=== PATIENT | male | born 1955 | race African-American/Black ===

== ENCOUNTER 2016-10-15 15:41 | Emergency (ER) | payer MEDICAID ==
[~2016-10-15] VITALS: Ht 172.7 cm; Wt 81.6 kg
[~2016-10-15 15:41] MED LIST: ANTIVERT25 MG ORAL; BENADRYL25 M2 PO; CEPHALEXIN500 MG ORAL; CILOXAN3.5 GM OP; CIPROFLOXACIN500 M2 ORAL; COMBIVIR1 EA ORAL; FLOMAX0.4 MG ORAL; HYDROCORTISO453.6 GM TP; LEVEMIR FL100 UNIT/1 SUBQ; METFORMIN HCL1000 M1 ORAL; METFORMIN HCL500 M1 ORAL; NKM; NORCO 5-325 TA1 EAC1 ORAL; NOVOLOG100 UNIT/3 SUBQ; TESSALON PERLE100 M2 ORAL; VIRACEPT250 MG ORAL; ZITHROMAX250 MG ORAL; [UNRECOGNIZED DRUG - OTHER] PO
[2016-10-15 15:53] VITALS: BP 133/84
[2016-10-15] MEDS ORDERED: ROBITUSSIN COU118 M4 PO (17:12)
[2016-10-15] MEDS ORDERED: AMOXICILLIN500 MG ORAL (17:12)
[2016-10-15 17:23] VITALS: BP 129/78
--- NOTE | 2016-10-15 21:29 | Emergency Room Report ---
History of Present Illness General Chief Complaint: Sore Throat Source: Patient Present Illness HPI The patient is a 61-year-old male presenting for 2 weeks of subjective fever, sore throat, and productive cough. The patient denies any sick contacts or recent travel. The patient states that the symptoms have not improved. The patient denies nausea, vomiting, headache, myalgias, dizziness, chest pain, shortness of breath, hemoptysis Allergies: Coded Allergies: No Known Allergies (Unverified , 02/15/13) Patient History Past Medical History: see triage record Pertinent Family History: none Reviewed Nursing Documentation: PMH: Agreed, PSxH: Agreed Nursing Documentation-PMH Past Medical History: No History, Except For Hx Diabetes: Yes Hx Cancer: No Hx Gastrointestinal Problems: Yes - Hepaitis C Hx Neurological Problems: Yes Hx Weakness: Yes Hx Fatigue: Yes Review of Systems All Other Systems: negative except mentioned in HPI Physical Exam Vital Signs Date Time Temp Pulse Resp B/P Pulse Ox O2 Delivery O2 Flow Rate FiO2 10/15/16 15:51 99.9 110 14 133/84 99 Room Air Sp02 EP Interpretation: reviewed, normal General Appearance: no apparent distress, alert, GCS 15, non-toxic Head: normocephalic, atraumatic Eyes: bilateral eye PERRL, bilateral eye normal inspection ENT: hearing grossly normal, no angioedema, normal voice, uvula midline, tonsillar swelling, pharyngeal erythema Neck: full range of motion, supple/symm/no masses Respiratory: chest non-tender, lungs clear, normal breath sounds, no wheezing, speaking full sentences Cardiovascular #1: regular rate, rhythm, no edema Musculoskeletal: back normal, gait/station normal, normal range of motion, non- tender, calf tenderness Neurologic: alert, oriented x3, responsive, motor strength/tone normal, sensory intact, speech normal Psychiatric: judgement/insight normal, memory normal, mood/affect normal, no suicidal/homicidal ideation Skin: normal color, no rash, warm/dry, well hydrated Lymphatic: no adenopathy Medical Decision Making PA Attestation Dr. Reaves is my supervising physician. Patient management was discussed with my supervising physician Diagnostic Impression: Primary Impression: Pharyngitis, acute ER Course The patient is a 61-year-old male presenting for 2 weeks of subjective fever, sore throat, and productive cough. Differential diagnosis include but not limited to pharyngitis, bronchitis, sinusitis, pneumonia, rhinitis Physical exam: Afebrile. No apparent distress HEENT: There is bilateral tonsillar edema and oropharyngeal erythema. Uvula midline. Otherwise exam unremarkable Lungs clear to auscultation bilaterally. The patient will be discharged home with a prescription for cough medication and amoxicillin. ER precautions given Last Vital Signs Date Time Temp Pulse Resp B/P Pulse Ox O2 Delivery O2 Flow Rate FiO2 10/15/16 17:23 99.9 98 15 129/78 99 Room Air Status: improved Disposition: HOME, SELF-CARE Condition: Improved Scripts Guaifenesin/Dextromethorphan (Robitussin Cough-Chest Dm Liq) 118 Ml Liquid 10 ML PO Q4HR, #118 ML Prov: DANNI DRAKE.Alberto. 10/15/16 Amoxicillin* (AMOXIL*) 500 Mg Capsule 500 MG ORAL Q12HR, #20 CAP Prov: DANNI DRAKE.A. 10/15/16 Patient Instructions: Pharyngitis, Sore Throat Additional Instructions: I discussed my findings with the patient. All questions and concerns have been answered. Treatment and medication compliance have been addressed. I advised the patient that they need to follow up with PMD in 3-5 days. Return to ED if pain remains or worsens, cough worsens or remains, you notice blood in your sputum, you notice wheezing, you experience a fever, or if needed for any reason. Patient verbalized understanding of discharge instructions. DANNI DRAKE Oct 15, 2016 21:29
== END 2016-10-15 17:24 | disposition home or self-care (01) ==
LOC: EMR 16:23
DX: J02.9 Acute pharyngitis, unspecified (principal); E11.9 Type 2 diabetes mellitus without complications; B19.20 Unspecified viral hepatitis C without hepatic coma
CPT/HCPCS: 99284

== ENCOUNTER 2016-10-18 06:30 | Emergency (ER) | payer MEDICAID ==
[~2016-10-18] VITALS: Ht 172.7 cm; Wt 81.6 kg
[~2016-10-18 06:30] MED LIST changes: +AMOXICILLIN500 MG ORAL; +ROBITUSSIN COU118 M4 PO
[2016-10-18 06:43] VITALS: BP 160/102
[2016-10-18 07:01] LABS: APPEARANCE,URINE CLEAR; KETONES,URINE 1+ (NEGATIVE); LEUKOCYTE ESTERASE ,URINE 1+ (NEGATIVE); NITRITE,URINE NEGATIVE (NEGATIVE); PH,URINE 5 (4.5-8.0); PROTEIN,URINE 2+ (NEGATIVE); UROBILINOGEN,URINE NORMAL MG/DL (0.0-1.0)
--- NOTE | 2016-10-18 07:13 | Emergency Room Report ---
History of Present Illness General Chief Complaint: Abdominal Pain Source: Patient Present Illness HPI 61 YO M with known BPH presents with generalized abd "discomfort" non-focal assoc with nausea - he induced vomiting with improvement - and "some watery diarrhea." No longer nauseated. Denies fever/chills, urinary complaints, previous abd surgery. Denies sick contacts, foreign travel. Patient undomiciled. Allergies: Coded Allergies: No Known Allergies (Unverified , 02/15/13) Patient History Past Medical History: other - HepC, BPH Past Surgical History: none Pertinent Family History: none Social History: Denies: alcohol use, drug use, smoking Immunizations: UTD Reviewed Nursing Documentation: PMH: Agreed, PSxH: Agreed Nursing Documentation-PMH Hx Diabetes: Yes Hx Cancer: No Hx Gastrointestinal Problems: Yes - Hepaitis C Hx Neurological Problems: Yes Hx Weakness: Yes Hx Fatigue: Yes Review of Systems All Other Systems: negative except mentioned in HPI Physical Exam Vital Signs Date Time Temp Pulse Resp B/P Pulse Ox O2 Delivery O2 Flow Rate FiO2 10/18/16 06:33 98.2 80 18 160/102 98 Room Air Sp02 EP Interpretation: reviewed, normal General Appearance: normal inspection, well appearing, no apparent distress, alert Head: atraumatic ENT: normal ENT inspection, hearing grossly normal, normal voice Neck: normal inspection, full range of motion, supple, no bony tend Respiratory: normal inspection, lungs clear, normal breath sounds, no respiratory distress, no retraction, no wheezing Cardiovascular #1: regular rate, rhythm, no edema Gastrointestinal: normal inspection, normal bowel sounds, non tender, soft, no guarding, no hernia Genitourinary: no CVA tenderness Musculoskeletal: normal inspection, back normal, normal range of motion, Abdulkadir' s Sign negative Neurologic: normal inspection, alert, oriented x3, responsive, fisher trammel net III-XII nml as tested, motor strength/tone normal, cerebellar normal, normal gait, speech normal Psychiatric: normal inspection, judgement/insight normal, mood/affect normal Skin: normal inspection, normal color, no rash Medical Decision Making Diagnostic Impression: Primary Impression: Abdominal pain Qualified Codes: R10.84 - Generalized abdominal pain ER Course 61 YO M with generalized abd discomfort. Non-focal abdomen on serial exam. VSS. Afebrile. UA: negative for infection Improved with PO H2 alex, reglan No additional vomiting here Low suspicion for acute bacterial or surgical process requiring additional lab testing or imaging given normal vital signs, absence of fever, non-focal abdomen on serial exam. Patient understands to follow up with PMD or return to ER for worsening/other concerning symptoms Rx Pepcid Also there is an element of malingering for correction during this rain storm - review of EMR indicates other visits for similar reasons to this ED Last Vital Signs Date Time Temp Pulse Resp B/P Pulse Ox O2 Delivery O2 Flow Rate FiO2 10/18/16 06:43 98.2 88 18 160/102 98 Room Air Status: improved Disposition: HOME, SELF-CARE Referrals: NON PHYSICIAN (PCP) MARK AU M.D. Oct 18, 2016 07:12
[2016-10-18 07:21] LABS: BACTERIA,URINE FEW /HPF; HYALINE CASTS, URINE 0-2 /LPF; MUCUS,URINE FEW /LPF (NONE/OCC); RBC,URINE 0-2 /HPF (0 - 0); SQUAMOUS EPITHELIAL CELL,UR FEW /LPF (NONE/OCC)
[2016-10-18] MEDS ORDERED: PEPCID40 MG PO (07:26)
[2016-10-18 08:00] VITALS: BP 155/80
[2016-10-18 08:35] VITALS: BP 155/87
== END 2016-10-18 08:35 | disposition home or self-care (01) ==
LOC: EMR 07:03
DX: R10.84 Generalized abdominal pain (principal); N40.0 Benign prostatic hyperplasia without lower urinary tract symptoms; B19.20 Unspecified viral hepatitis C without hepatic coma; E11.9 Type 2 diabetes mellitus without complications
CPT/HCPCS: 81003; 96372; 99283; J2405

== ENCOUNTER 2016-10-20 22:19 | Inpatient (IN) | payer MEDICAID ==
[~2016-10-20] VITALS: Ht 172.7 cm; Wt 81.6 kg
[~2016-10-20 22:19] MED LIST changes: +PEPCID40 MG PO
[2016-10-20] MEDS ORDERED: Morphine Sulfate 2mg/ml Inj IVP ONE (23:00)
[2016-10-20 23:31] LABS: MEAN CORPUSCULAR HEMOGLOBIN 38.9 PG (27.0-31.0); MEAN CORPUSCULAR HGB CONC 34.2 G/DL (32.0-36.0); MEAN CORPUSCULAR VOLUME 114 FL (80-99); MEAN PLATELET VOLUME 8.8 FL (6.5-10.1); PLATELET COUNT 176 K/UL (150-450); RED BLOOD COUNT 5.44 M/UL (4.70-6.10); RED CELL DISTRIBUTION WIDTH 12.2 % (11.6-14.8)
[2016-10-20 23:43] LABS: INR 1.1 (0.9-1.1); PROTHROMBIN TIME 10.9 SEC (9.30-11.50)
[2016-10-20 23:45] VITALS: BP 135/90
[2016-10-20 23:52] LABS: TROPONIN I < 0.30 ng/mL (<=0.30)
[2016-10-20 23:55] LABS: ALANINE AMINOTRANSFERASE 28 U/L (3-41); ALBUMIN/GLOBULIN RATIO 0.9 (1.0-2.7); ANION GAP 24 (5-15); ASPARTATE AMINO TRANSFERASE 29 U/L (5-40); CALCIUM 10.2 mg/dL (8.6-10.2); CARBON DIOXIDE 24 mEQ/L (20-30); CHLORIDE 91 mEQ/L (98-107); CREATININE 1.5 mg/dL (0.7-1.2); GLOMERULAR FILTRATION RATE 58.1 mL/min (>60); HEMOLYSIS 7; LIPASE 10 U/L (< 60); POTASSIUM 4.1 mEQ/L (3.4-4.9); SODIUM 139 mEQ/L (135-145); TOTAL PROTEIN 8.5 g/dL (6.6-8.7)
[2016-10-21] VITALS (12 sets, daily range): BP systolic 126–157; BP diastolic 81–102
[2016-10-21] MEDS ORDERED: Azithromycin 500 MG in NS 275 ML IVPB ONE ×2
[2016-10-21] MEDS ORDERED: Cefepime 1gm vial ONE (01:00)
--- NOTE | 2016-10-21 01:02 | Emergency Room Report ---
History of Present Illness General Chief Complaint: Pain Source: Patient Present Illness HPI The patient presents with right-sided flank and right chest pain that Rickey for several days - at least 2 weeks. He was seen here October 18 for similar problem. The pain is gotten more severe. He also complains of a cough previous also been weak. Diabetic. HTN HIV and liver disease. Seen 10/15 with pharyngitis. Prescribed amoxacillin. This is the note from 10/18: 61 YO M with known BPH presents with generalized abd "discomfort" non-focal assoc with nausea - he induced vomiting with improvement - and "some watery diarrhea." No longer nauseated. Denies fever/chills, urinary complaints, previous abd surgery. Denies sick contacts, foreign travel. Primary Impression: Abdominal pain Qualified Codes: R10.84 - Generalized abdominal pain ER Course 61 YO M with generalized abd discomfort. Non-focal abdomen on serial exam. VSS. Afebrile. UA: negative for infection Improved with PO H2 alxe, reglan No additional vomiting here Low suspicion for acute bacterial or surgical process requiring additional lab testing or imaging given normal vital signs, absence of fever, non-focal abdomen on serial exam. Patient understands to follow up with PMD or return to ER for worsening/other concerning symptoms Rx Pepcid Allergies: Coded Allergies: No Known Allergies (Unverified , 02/15/13) Patient History Past Medical History: see triage record, old chart reviewed, DM, HTN, HIV Social History: Denies: alcohol use, drug use, smoking Social History Narrative living in various places Reviewed Nursing Documentation: PMH: Agreed, PSxH: Agreed Nursing Documentation-PMH Past Medical History: No History, Except For Hx Diabetes: Yes Hx Cancer: No Hx Gastrointestinal Problems: Yes - Hepaitis C Hx Neurological Problems: Yes Hx Weakness: Yes Hx Fatigue: Yes Physical Exam Vital Signs Date Time Temp Pulse Resp B/P Pulse Ox O2 Delivery O2 Flow Rate FiO2 10/20/16 22:30 95.2 103 25 132/88 94 Room Air Procedures Critical Care Time Critical Care Time Total time: 30 min bedside evaluation and treatment excludes procedures (EKG). Reason for critical care: acute abdomen, repeated evaluations, need for emergent surgery Possible complications: hypotension, hypertension, CA, shock, arrhythmias, metabolic acidosis, end organ damage, respiratory failure. Interventions: Fluid resuscitation, antibiotics, arrange for emergent surgery, repeat evaluations Course: Patient with acute abdomen. Evidence of pneumonia. Fluid resuscitation and treatment for pain with improvement. Severe dehydration. Continued fluids. CT + perf. Surgeon called and came with evaluation and taking patient to OR. Consultations: nursing staff, radiologist, manufacturing technician, surgeon, admitting MD Performed by: Dr. Geller Tolerated well condition = serious Medical Decision Making Diagnostic Impression: Primary Impression: Bilateral pneumonia Qualified Codes: J18.9 - Pneumonia, unspecified organism Additional Impressions: Perforated appendicitis Polycythemia Volume depletion Renal insufficiency Diabetes mellitus out of control HIV disease ER Course Patient with flank pain, cough, appears acutely ill. DDx: pneumonia, sepsis, renal stone, pyelo, perf. Needs immediate and emergent evaluation with labs, CXR, CT. Will start antibiotics and begin fluid resuscitation. Patient mottled and will need admission but need to determine etiology. CXR with bilateral infiltrates. Antibiotics geared for this. Improved with fluid hydration. Decreased abd pain but still present. Elevated H/H, WBC, lactate. Renal insufficiency. No contrast (discussion with manufacturing technician). Contacted by radiology - pt has perforated appi with free air and peritonitis. Contact surgeon. Patient improved but still with pain. Dr. Singh here. Taking patient to OR. Contact Dr. Gordon for admission. Laboratory Tests Test 10/20/16 23:00 White Blood Count 15.0 K/UL (4.8-10.8) H Red Blood Count 5.44 M/UL (4.70-6.10) Hemoglobin 21.2 G/DL (14.2-18.0) *H Hematocrit 62.0 % (42.0-52.0) H Mean Corpuscular Volume 114 FL (80-99) H Mean Corpuscular Hemoglobin 38.9 PG (27.0-31.0) H Mean Corpuscular Hemoglobin Concent 34.2 G/DL (32.0-36.0) Red Cell Distribution Width 12.2 % (11.6-14.8) Platelet Count 176 K/UL (150-450) Mean Platelet Volume 8.8 FL (6.5-10.1) Neutrophils (%) (Auto) % (45.0-75.0) Lymphocytes (%) (Auto) % (20.0-45.0) Monocytes (%) (Auto) % (1.0-10.0) Eosinophils (%) (Auto) % (0.0-3.0) Basophils (%) (Auto) % (0.0-2.0) Prothrombin Time 10.9 SEC (9.30-11.50) Prothrombin Time INR 1.1 (0.9-1.1) PTT 29 SEC (23-33) Sodium Level 139 mEQ/L (135-145) Potassium Level 4.1 mEQ/L (3.4-4.9) Chloride Level 91 mEQ/L (98-107) L Carbon Dioxide Level 24 mEQ/L (20-30) Anion Gap 24 (5-15) H Blood Urea Nitrogen 24 mg/dL (7-23) H Creatinine 1.5 mg/dL (0.7-1.2) H Estimate Glomerular Filtration Rate 58.1 mL/min (>60) Glucose Level 228 mg/dL (74-106) H Calcium Level 10.2 mg/dL (8.6-10.2) Total Bilirubin 1.0 mg/dL (0.0-1.2) Aspartate Amino Transferase (AST) 29 U/L (5-40) Alanine Aminotransferase (ALT) 28 U/L (3-41) Alkaline Phosphatase 70 U/L (40-129) Total Creatine Kinase 215 U/L (38-174) H Troponin I < 0.30 ng/mL (<=0.30) Total Protein 8.5 g/dL (6.6-8.7) Albumin 4.1 g/dL (3.5-5.2) Globulin 4.4 g/dL Albumin/Globulin Ratio 0.9 (1.0-2.7) L Lipase 10 U/L (< 60) EKG Diagnostic Results Rate: tachycardiac ST Segments: no acute changes Rhythm Strip Diag. Results EP Interpretation: yes Rhythm: no PVC's, no ectopy, other - ST Chest X-Ray Diagnostic Results EP Interpretation: Yes Findings: no pneumothorax, other - bilateral infiltrates, possible small effusion L Number of Views: 1 CT/MRI/US Diagnostic Results CT/MRI/US Diagnostic Results : Imaging Test Ordered: abd pelvis Impression free air, poss perf appendix Last Vital Signs Date Time Temp Pulse Resp B/P Pulse Ox O2 Delivery O2 Flow Rate FiO2 10/20/16 23:45 97.2 87 22 135/90 98 Room Air Status: improved Disposition: ADMITTED INPATIENT Condition: Critical Referrals: NOT CHOSEN IPA/,REFERRING (PCP) Poncho Geller M.D. Oct 21, 2016 01:02
[2016-10-21] MEDS ORDERED: metroNIDAZOLE 500mg 100 ML IVPB ONE (01:15)
[2016-10-21 01:48] LABS: REFLEX LACTIC ACID YES OR NO YES
[2016-10-21] MEDS ORDERED: Azithromycin Inj IV ONE (02:07)
--- NOTE | 2016-10-21 03:05 | Anethesia Preoperative Eval ---
Anesthesia Pre-op PMH/ROS General Date of Evaluation: Oct 21, 2016 Anesthesiologist: Scott ASA Score: ASA 3 Mallampati Score Class I : Soft palate, uvula, fauces, pillars visible Class II: Soft palate, uvula, fauces visible Class III: Soft palate, base of uvula visible Class IV: Only hard plate visible Mallampati Classification: Class III Surgeon: Samantha Diagnosis: Perforated appendicitis Surgical Procedure: Exploratory laparotomy Anesthesia History: none Family History: no anesthesia problems Allergies: Coded Allergies: No Known Allergies (Unverified , 02/15/13) Medications: see eMAR Past Medical History Cardiovascular: Reports: HTN, Denies: CAD, CO, arrhythmia, other, valve dz Pulmonary: Denies: COPD, NEEMA, asthma, other Gastrointestinal/Genitourinary: Reports: GERD, Denies: CRI, ESRD, other Neurologic/Psychiatric: Reports: depression/anxiety, Denies: CVA, TIA, dementia, other Endocrine: Reports: DM, Denies: hypothyroidism, other, steroids HEENT: Denies: [place] (L), [place] (R), cataract (L), cataract (R), glaucoma, other Hematology/Immune: Reports: other - HIV/Hep C, Denies: DVT, anemia, bleeding disorder Musculoskeletal/Integumentary: Reports: OA, Denies: DDD, DJD, RA, edema, other PSxH Narrative: N/A Anesthesia Pre-op Phys. Exam Physician Exam Last Vital Signs Date Time Temp Pulse Resp B/P Pulse Ox O2 Delivery O2 Flow Rate FiO2 10/20/16 23:45 97.2 87 22 135/90 98 Room Air Constitutional: NAD Cardiovascular: other - tachy Respiratory: CTA Airway Exam Mallampati Score: Class III MO: full ROM: full Anesthesia Pre-op A/P Labs Hematology Test 10/20/16 23:00 White Blood Count 15.0 K/UL (4.8-10.8) H Red Blood Count 5.44 M/UL (4.70-6.10) Hemoglobin 21.2 G/DL (14.2-18.0) *H Hematocrit 62.0 % (42.0-52.0) H Mean Corpuscular Volume 114 FL (80-99) H Mean Corpuscular Hemoglobin 38.9 PG (27.0-31.0) H Mean Corpuscular Hemoglobin Concent 34.2 G/DL (32.0-36.0) Red Cell Distribution Width 12.2 % (11.6-14.8) Platelet Count 176 K/UL (150-450) Mean Platelet Volume 8.8 FL (6.5-10.1) Neutrophils (%) (Auto) % (45.0-75.0) Lymphocytes (%) (Auto) % (20.0-45.0) Monocytes (%) (Auto) % (1.0-10.0) Eosinophils (%) (Auto) % (0.0-3.0) Basophils (%) (Auto) % (0.0-2.0) Coagulation Test 10/20/16 23:00 Prothrombin Time 10.9 SEC (9.30-11.50) Prothromb Time International Ratio 1.1 (0.9-1.1) Activated Partial Thromboplast Time 29 SEC (23-33) Chemistry Test 10/20/16 23:00 10/21/16 01:20 10/21/16 02:20 Sodium Level 139 mEQ/L (135-145) Potassium Level 4.1 mEQ/L (3.4-4.9) Chloride Level 91 mEQ/L (98-107) L Carbon Dioxide Level 24 mEQ/L (20-30) Anion Gap 24 (5-15) H Blood Urea Nitrogen 24 mg/dL (7-23) H Creatinine 1.5 mg/dL (0.7-1.2) H Estimat Glomerular Filtration Rate 58.1 mL/min (>60) Glucose Level 228 mg/dL (74-106) H Calcium Level 10.2 mg/dL (8.6-10.2) Total Bilirubin 1.0 mg/dL (0.0-1.2) Aspartate Amino Transf (AST/SGOT) 29 U/L (5-40) Alanine Aminotransferase (ALT/SGPT) 28 U/L (3-41) Alkaline Phosphatase 70 U/L (40-129) Total Creatine Kinase 215 U/L (38-174) H Troponin I < 0.30 ng/mL (<=0.30) Total Protein 8.5 g/dL (6.6-8.7) Albumin 4.1 g/dL (3.5-5.2) Globulin 4.4 g/dL Albumin/Globulin Ratio 0.9 (1.0-2.7) L Lipase 10 U/L (< 60) Lactic Acid Level 3.30 mmol/L (0.66-2.22) H Pending Studies Pre-op Studies: EKG - SR Risk Assessment & Plan Assessment: ASA IIIE Plan: GA-ETT Status Change Before Surgery: No Pre-Antibiotics Drug: On cefepime, azithromycin and flagyl Given Within 1 Hr of Incision: Yes CAESAR MORA M.D. Oct 21, 2016 03:05
--- NOTE | 2016-10-21 03:07 | Pre-op HX & Phy Repo 2 SIG ---
DATE OF ADMISSION: 10/20/2016 DATE OF CONSULTATION: 10/21/2016 REASON FOR CONSULTATION: Abdominal pain. REQUESTING PHYSICIAN: Poncho Geller M.D., in the emergency room. HISTORY OF PRESENT ILLNESS: This is a 61-year-old male, who presented to emergency room complaining of abdominal pain. He claimed that the pain is located on the right side of the abdomen and he claims that he has been fighting this pain for three weeks. He apparently has been seen in the emergency room on 10/18/2016, but he was discharged home with analgesic. Laboratory or x-ray was not performed. He claims that he has induced vomiting twice. His last bowel movement had been probably a week ago. He denies any fever, cough, dysuria, or frequency. He denies any previous history of similar pain. He denies using aspirin, ibuprofen, and cortisol. He denies abdominal pain after eating. PAST MEDICAL HISTORY: He denies allergies, asthma, hypertension, cardiac, and renal diseases. He has a history of diabetes and hepatitis C. PAST SURGICAL HISTORY: Surgeries include incision and drainage of the abscess. MEDICATIONS: Metformin and medicine for hepatitis C. SOCIAL HISTORY: The patient is a 61-year-old male, single without children. Currently, he is on disability and does not work. He denies smoking and drinking. REVIEW OF SYSTEMS: Noncontributory. PHYSICAL EXAMINATION: GENERAL: The patient appeared to be a well-developed, well-nourished, 61-year-old male, lying on the gurney, complaining of severe abdominal pain. HEENT: Head is normocephalic and atraumatic. Eyes, pupils are equal, round, and reactive to light. Mouth is clear, but dry. NECK: There is no palpable thyromegaly or adenopathy. CHEST: Clear to auscultation and percussion. HEART: There is no gallop or murmur. S1 and S2 are within normal limits. ABDOMEN: It has a board-like rigidity. He has tenderness, rebound tenderness, and guarding all over the abdomen, which is more severe on the right side of the abdomen and it is more pronounced at right lower quadrant of the abdomen. There are no bowel sounds. GENITAL: Normal. EXTREMITIES: Normal. LABORATORY DATA: CBC has shown WBC of 15,000 with a left shift, but the hemoglobin is very high. CT scan of the abdomen has been interpreted as perforated appendicitis with small pneumoperitoneum. ASSESSMENT: Acute abdomen. PLAN: After rehydration, the patient will undergo exploratory laparotomy. The risks and benefits have been explained to him. He understood and granted consent for this. Timbo Singh M.D. DR: Percy JOB#: [id number] CC:
[2016-10-21] MEDS ORDERED: Miralax 17gm pkt ORAL PRN (03:15)
[2016-10-21] MEDS ORDERED: Mylanta II UD 30ml ORAL PRN (03:15)
[2016-10-21] MEDS ORDERED: Ketorolac 30mg Inj IV PRN (03:15)
[2016-10-21] MEDS ORDERED: Nitroglycerin Subl 0.4mg tab (Bottle Of 25) SL PRN (03:15)
[2016-10-21] MEDS ORDERED: Sterile Water Irrig 1000ml IRRIG ONE (03:45)
[2016-10-21] MEDS ORDERED: Zemuron 50mg/5ml Inj IV ONE (03:45)
[2016-10-21] MEDS ORDERED: fentaNYL 100 mcg/2 mL IV ONE (03:45)
[2016-10-21] MEDS ORDERED: Propofol 10mg/ml 20ml IV ONE (03:45)
[2016-10-21] MEDS ORDERED: Lidocaine 1% MPF 10mg/ml 5ml ONE (03:45)
[2016-10-21] MEDS ORDERED: Midazolam 2mg/2ml Inj ONE (03:45)
[2016-10-21] MEDS ORDERED: LR 1000ml ONE (03:45)
[2016-10-21 03:48] LABS: APPEARANCE,URINE SLIGHTLY CLOUDY; KETONES,URINE 2+ (NEGATIVE); LEUKOCYTE ESTERASE ,URINE 1+ (NEGATIVE); NITRITE,URINE POSITIVE (NEGATIVE); PH,URINE 5 (4.5-8.0); PROTEIN,URINE 3+ (NEGATIVE); UROBILINOGEN,URINE 8 MG/DL (0.0-1.0)
[2016-10-21] MEDS ORDERED: NS Irrig 1000ml ONE (04:00)
[2016-10-21 04:07] LABS: RBC,URINE 0-2 /HPF (0 - 0)
[2016-10-21] MEDS ORDERED: LR 1000ml 1,000 ML IVLG SCH (04:07)
--- NOTE | 2016-10-21 04:07 | Immediate Post-Op Evaluation ---
Immediate Post-Op Evalulation Immediate Post-Op Evalulation Procedure: Exploratory laparotomy Date of Evaluation: Oct 21, 2016 Time of Evaluation: 05:14 IV Fluids: 1L Blood Products: 0 Estimated Blood Loss: min Urinary Output: 0 Blood Pressure Systolic: 140 Blood Pressure Diastolic: 101 Pulse Rate: 101 Respiratory Rate: 18 O2 Sat by Pulse Oximetry: 100 Temperature (Fahrenheit): 99.4 Pain Score (1-10): 0 Nausea: No Vomiting: No Complications 0 Patient Status: awake, reacts, patent, none Hydration Status: adequate Drug: CEfepime, flagyl and azithromycin given in ED Given Within 1 Hr of Incision: Yes CAESAR MORA M.D. Oct 21, 2016 04:07
[2016-10-21 04:08] LABS: BACTERIA,URINE FEW /HPF; FINE GRANULAR CASTS,URINE 0-2 /LPF; HYALINE CASTS, URINE 0-2 /LPF; ICTOTEST POSITIVE; MUCUS,URINE MODERATE /LPF (NONE/OCC); SQUAMOUS EPITHELIAL CELL,UR FEW /LPF (NONE/OCC)
[2016-10-21] MEDS ORDERED: Labetalol 5mg/ml 20ml vial IV PRN (04:15)
[2016-10-21] MEDS ORDERED: DiphenhydrAMINE 50mg/ml Inj IVP PRN (04:15)
[2016-10-21] MEDS ORDERED: Hydromorphone 0.5mg/0.5ml inj IVP PRN (04:15)
[2016-10-21] MEDS ORDERED: fentaNYL 100 mcg/2 mL IV PRN (04:15)
[2016-10-21] MEDS ORDERED: NS Irrig 1000ml IRRIG ONE (04:30)
[2016-10-21] MEDS ORDERED: Bacitracin 50000 Units Vial IRRIG ONE (04:30)
[2016-10-21] MEDS ORDERED: Betadine 4oz Bottle TOPIC ONE (04:55)
--- NOTE | 2016-10-21 05:03 | Brief Operative Note ---
Immediate Post Operative Note Operative Note Pre-op Diagnosis: acute abdomen Procedure: exploratory laparotomy , appendectomy and drainage of periappendiceal abscess Post-op Diagnosis: acute perforated appendicitis with generalised peritonitis Findings: other - perfed appy with peritonitis Surgeon: MD Savage Almond Blancher Hand: none Anesthesiologist: Dr. Teixeira Anesthesia: general Specimen: yes Complications: none Condition: stable Estimated Blood Loss: minimal Drains: ESTEVAN Implant(s) used?: No WENDY MELTON Oct 21, 2016 05:03
[2016-10-21] MEDS ORDERED: Metoclopramide 10mg/2ml Inj IVP PRN (05:15)
[2016-10-21] MEDS ORDERED: Acetaminophen 650 MG SUPP RECTAL PRN (05:15)
--- NOTE | 2016-10-21 05:31 | Pre-Procedure Note/Attestation ---
Pre-Procedure Note/Attestation Complete Prior to Procedure Planned Procedure: not applicable Procedure Narrative: Exploratory Laparotomy Indications for Procedure Pre-Operative Diagnosis: acute abdomen Attestation I attest that I discussed the nature of the procedure; its benefits; risks and complications; and alternatives (and the risks and benefits of such alternatives ), prior to the procedure, with the patient (or the patient's legal development representative). I attest that, if there was a reasonable possibility of needing a blood transfusion, the patient (or the patient's legal development representative) was given the [facility] standardized written summary, pursuant to the Peewee Reynaldo Blood Safety Act ([place] Health and Safety Code # 1645, as amended). I attest that I re-evaluated the patient just prior to the surgery and that there has been no change in the patient's H&P, except as documented below: WENDY MELTON Oct 21, 2016 05:31
[2016-10-21] MEDS: NovoLOG Insulin Flexpen SUBQ SCH ×6 (06:30→20:51)
--- NOTE | 2016-10-21 08:06 | 48 Hour Post Anesthesia Eval ---
Post Anesthesia Evaluation Procedure: Exploratory laparotomy Date of Evaluation: Oct 21, 2016 Time of Evaluation: 08:04 Blood Pressure Systolic: 158 0: 94 Pulse Rate: 78 Respiratory Rate: 24 Temperature (Fahrenheit): 98.1 O2 Sat by Pulse Oximetry: 99 Airway: patent Nausea: No Vomiting: No Pain Intensity: 3 Hydration Status: adequate Cardiopulmonary Status: stable Mental Status/LOC: patient returned to baseline Follow-up Care/Observations: n/a Post-Anesthesia Complications: none Follow-up care needed: N/A ANGELO SANCHEZ M.D. Oct 21, 2016 08:06
--- NOTE | 2016-10-21 08:57 | Operative Note - Dictated ---
DATE OF OPERATION: 10/21/2016 PREOPERATIVE DIAGNOSIS: Acute abdomen. POSTOPERATIVE DIAGNOSIS: Acute perforated appendicitis with periappendiceal abscess and generalized peritonitis. OPERATION: 1. Exploratory laparotomy. 2. Drainage of periappendiceal abscess. 3. Appendectomy. COMPLICATION: None. SURGEON: Timbo Singh M.D. CONDOMINIUM PROPERTY MANAGER: None. ANESTHESIA: General with endotracheal tube. ANESTHESIOLOGIST: Dr. Teixeira INDICATION: This is a 61-year-old male who presented to emergency room complaining of abdominal pain. The patient stated that he has been fighting with abdominal pain for three weeks, but recently it has been apparently in the last two to three days, it has been more severe. He stated that he induced vomiting. Physical examination showed rigid abdomen. He had tenderness, rigidity, and rebound tenderness all over the abdomen, which was more severe on the right side. It was more pronounced at the right lower quadrant. CBC showed a WBC of 15,000. The CAT scan of the abdomen was interpreted as perforated appendicitis with a small amount of pneumoperitoneum. As the history was not clear and the patient had acute abdomen especially with pneumoperitoneum, the decision was made for exploratory laparotomy. DESCRIPTION OF PROCEDURE: The patient was placed supine on the operating table and after general anesthesia with endotracheal tube, the abdomen was properly prepped and draped. A midline incision was given from above the umbilicus to the pubis and was carried sharply through subcutaneous tissue, fascia, and peritoneum. The intraperitoneal cavity was entered. In entering the intraperitoneal cavity noticed that the patient had large amount of pus all over the abdomen at the interloops in the pelvis above and below the liver and right paracolic gutter. Exploration was performed. The cecum was identified and it was noticed that the patient had an periappendiceal abscess, which was drained. The pus was suctioned out. Exploration was performed and acute gangrenous perforated appendicitis was identified, which was between the cecum and the posterior abdominal wall. The the appendix and mesoappendix was exposed and then it was ligated and transected with the LATOYA stapler. The appendix was removed from the field and then the intraperitoneal cavity especially the pelvis, right paracolic gutter and above and below the liver was thoroughly irrigated with normal saline and antibiotic solution. The whole abdomen was irrigated with the antibiotic solution. Another exploration was performed. There was no complication and the procedure was terminated. The incision was approximated with the running suture of 0 Vicryl for the posterior fascia and peritoneum, #1 Prolene for the anterior fascia. The skin incision was approximated loosely with a few stacy and then it was packed in between the new iodoform gauze. The patient tolerated the procedure very well and was transferred to recovery in stable condition and extubated. The sponge and needle count were correct. Estimated blood loss was 20 mL. Condition of the patient at the end of procedure is stable. Timbo Singh M.D. DR: BRENDA JOB#: [id number] CC:
[2016-10-21] MEDS ORDERED: Heparin 5000 units/ml inj SUBQ SCH (09:00)
[2016-10-21] MEDS ORDERED: NS IVPB SCH (09:00)
[2016-10-21] MEDS ORDERED: GENTAMICIN IVPB SCH (09:00)
[2016-10-21] MEDS: D5 1/2NS w/KCl 20mEq 1,000 ML IV SCH ×3 (09:30→19:07)
[2016-10-21] MEDS: Tamsulosin 0.4mg cap ORAL SCH (09:32)
[2016-10-21] MEDS: Enoxaparin 30mg Inj SUBQ SCH (09:35)
[2016-10-21] MEDS: Morphine Sulfate 2mg/ml Inj IVP PRN (11:32)
--- NOTE | 2016-10-21 14:34 | Consultation ---
Consult Note Consult Note ID CONSULT: Dict# [id number] Assessment/Plan ASSESSMENT: 61 y/o male with: // Acute perforated appendicitis / periappendiceal abscess / peritonitis - SP ex-lap drainage of periappendiceal abscess, appendectomy 10/21 - WCx pending // HIV(+), on cART ( combivir, viracept ) - unknown CD4 // h/o HCV - LFTs WNL // Leukocytosis, afebrile // BRENDAN // DM2 - HbA1c pending // NKDA // Full Code PLAN: - continue zosyn d# - - resume cART ( combivir, viracept ), f/u with regular HIV provider at discharge - f/u cultures - monitor CBC, temperatures - monitor BMP Thanks! Will follow YANNICK PARRA Oct 21, 2016 14:34
--- NOTE | 2016-10-21 14:52 | Diagnostic Imaging Report ---
Indications: Abdominal pain Technique: Continuous helical CT imaging of the abdomen and pelvis was performed with automatic exposure control on a Siemens sensation [address] scanner. Axial, coronal, sagittal images reconstructed at 3 mm slice thickness. No oral or IV contrast was administered per requesting physician's order, despite no contraindications listed in either submitted clinical data or tech note.. CTDI volume(s): 13 mGy Total DLP: 701 mGy-cm Findings: Comparison: None Lack of IV and oral contrast limits evaluation. Appendix enlarged, maximum diameter 12 mm. Small appendicoliths again noted. Surrounding stranding. Adjacent small extraluminal gas collection up to 3 cm. Additional small bubbles of free intraperitoneal gas adjacent to liver. Small amount of free fluid adjacent to liver and in the dependent portion of pelvis. Mural thickening of the adjacent ascending colon not excludable. Remainder of gastrointestinal tract nondilated without additional obvious acute abnormality. Multiple left colonic diverticula. Previous stone in distal left ureter no longer present. Associated mild left hydronephrosis and hydroureter, perinephric stranding resolved. Small calcified stone again noted and urinary bladder lumen. Remainder visualized pelvic anatomy demonstrates no other obvious acute abnormality. Linear and patchy parenchymal consolidative opacities in both lung bases, right greater than left. Mild disc space narrowing with marginal osteophyte formation in lumbar spine. Impression: Findings compatible with acute appendicitis with perforation, small adjacent gas collection which may involving to abscess, small amount of pneumoperitoneum and free fluid. No other evidence of acute abdominopelvic disease, with limitation as described. Subtle but potentially significant abnormalities may be missed. Repeat CT scan with full oral and IV contrast preparation recommended for more complete evaluation, as clinically indicated Colonic diverticulosis Resolution of previous obstructive left nephrolithiasis Development of bibasal pulmonary critical opacities--atelectasis with or without edema/pneumonitis Degenerative spondylosis This correlates with [facility] preliminary report.
--- NOTE | 2016-10-21 17:33 | General Surgery Progress Note ---
General Surgery-Progress Note Subjective Procedure Performed exploratory laparotomy , appendectomy and drainage of periappendiceal abscess Symptoms: improved Objective Last 24 Hour Vital Signs Date Time Temp Pulse Resp B/P Pulse Ox O2 Delivery O2 Flow Rate FiO2 10/21/16 16:00 97.5 96 14 129/87 98 Nasal Cannula 2.0 10/21/16 12:02 98.1 10/21/16 12:00 97.9 98 21 142/92 98 Nasal Cannula 2.0 10/21/16 08:06 78 24 99 10/21/16 08:00 97.3 94 22 146/98 100 10/21/16 06:51 97.3 101 20 153/102 98 Nasal Cannula 2.0 10/21/16 05:42 97 18 157/102 100 Simple Mask 10.0 10/21/16 05:35 96 18 145/100 100 Simple Mask 10.0 10/21/16 05:19 96 18 146/98 100 Simple Mask 10.0 10/21/16 05:14 99 18 149/96 100 Simple Mask 10.0 10/21/16 05:10 101 18 100 10/21/16 05:09 99.4 101 18 140/101 100 Simple Mask 10.0 10/21/16 03:35 97.2 82 20 137/86 100 Room Air 10/21/16 02:30 98.3 78 14 126/85 100 Room Air 10/21/16 01:00 85 18 130/89 99 Room Air 10/20/16 23:45 97.2 87 22 135/90 98 Room Air 10/20/16 23:43 97.2 10/20/16 22:30 95.2 103 25 132/88 94 Room Air I&O Intake and Output 10/20/16 10/21/16 19:00 07:00 Intake Total 4300 ml Output Total 0 ml Balance 4300 ml Intake IV Total 4300 ml Output Urine Total 0 ml Dressing: dry Drains: sherron Respiratory: clear Abdomen: soft, flat, tenderness, absent bowel sounds Extremities: no edema, no tenderness Laboratory Tests Test 10/20/16 23:00 10/21/16 01:20 10/21/16 02:20 10/21/16 03:00 White Blood Count 15.0 K/UL (4.8-10.8) H Red Blood Count 5.44 M/UL (4.70-6.10) Hemoglobin 21.2 G/DL (14.2-18.0) *H Hematocrit 62.0 % (42.0-52.0) H Mean Corpuscular Volume 114 FL (80-99) H Mean Corpuscular Hemoglobin 38.9 PG (27.0-31.0) H Mean Corpuscular Hemoglobin Concent 34.2 G/DL (32.0-36.0) Red Cell Distribution Width 12.2 % (11.6-14.8) Platelet Count 176 K/UL (150-450) Mean Platelet Volume 8.8 FL (6.5-10.1) Neutrophils (%) (Auto) % (45.0-75.0) Lymphocytes (%) (Auto) % (20.0-45.0) Monocytes (%) (Auto) % (1.0-10.0) Eosinophils (%) (Auto) % (0.0-3.0) Basophils (%) (Auto) % (0.0-2.0) Prothrombin Time 10.9 SEC (9.30-11.50) Prothromb Time International Ratio 1.1 (0.9-1.1) Activated Partial Thromboplast Time 29 SEC (23-33) Sodium Level 139 mEQ/L (135-145) Potassium Level 4.1 mEQ/L (3.4-4.9) Chloride Level 91 mEQ/L (98-107) L Carbon Dioxide Level 24 mEQ/L (20-30) Anion Gap 24 (5-15) H Blood Urea Nitrogen 24 mg/dL (7-23) H Creatinine 1.5 mg/dL (0.7-1.2) H Estimat Glomerular Filtration Rate 58.1 mL/min (>60) Glucose Level 228 mg/dL (74-106) H Calcium Level 10.2 mg/dL (8.6-10.2) Total Bilirubin 1.0 mg/dL (0.0-1.2) Aspartate Amino Transf (AST/SGOT) 29 U/L (5-40) Alanine Aminotransferase (ALT/SGPT) 28 U/L (3-41) Alkaline Phosphatase 70 U/L (40-129) Total Creatine Kinase 215 U/L (38-174) H Troponin I < 0.30 ng/mL (<=0.30) Total Protein 8.5 g/dL (6.6-8.7) Albumin 4.1 g/dL (3.5-5.2) Globulin 4.4 g/dL Albumin/Globulin Ratio 0.9 (1.0-2.7) L Lipase 10 U/L (< 60) Lactic Acid Level 3.30 mmol/L (0.66-2.22) H 2.60 mmol/L (0.66-2.22) H Urine Color Kathya Urine Appearance Slightly cloudy Urine pH 5 (4.5-8.0) Urine Specific [place] 1.025 (1.005-1.035) Urine Protein 3+ (NEGATIVE) H Urine Glucose (UA) Negative (NEGATIVE) Urine Ketones 2+ (NEGATIVE) H Urine Occult Blood 1+ (NEGATIVE) H Urine Nitrite Positive (NEGATIVE) H Urine Bilirubin 2+ (NEGATIVE) H Urine Ictotest Positive Urine Urobilinogen 8 MG/DL (0.0-1.0) H Urine Leukocyte Esterase 1+ (NEGATIVE) H Urine RBC 0-2 /HPF (0 - 0) H Urine WBC 2-4 /HPF (0 - 0) Urine Squamous Epithelial Cells Few /LPF (NONE/OCC) Urine Bacteria Few /HPF (NONE) Urine Hyaline Casts 0-2 /LPF (NONE) H Urine Fine Granular Casts 0-2 /LPF (NONE) H Urine Mucus Moderate /LPF (NONE/OCC) H Assessment Post-op Diagnosis acute perforated appendicitis with generalised peritonitis Plan Additional Comments continue IV antibiotics WENDY MELTON Oct 21, 2016 17:33
[2016-10-21] MEDS ORDERED: Zidovudine 100mg cap ORAL SCH (18:00)
--- NOTE | 2016-10-21 18:02 | History and Physical ---
History of Present Illness General Date patient seen: Oct 21, 2016 Reason for Hospitalization: Pain Present Illness HPI 61 year old patient presents with right-sided flank and right chest pain for several days - at least 2 weeks. He was seen at [facility] [place] [facility] October 18 for similar problem. The pain is gotten more severe. He also complains of a cough previous also been weak. He had a Ct scan showing perforated appendix. He underwent appendectomy meanwhile. Allergies: Coded Allergies: No Known Allergies (Unverified , 02/15/13) Medication History Scheduled Amoxicillin* (Amoxil*), 500 MG ORAL Q12HR Famotidine (Pepcid), 40 MG PO BID Guaifenesin/Dextromethorphan (Robitussin Cough-Chest Dm Liq), 10 ML PO Q4HR Insulin Aspart* (Novolog*), 12 SUBQ AC, (Reported) Insulin Detemir (Levemir Flexpen), 40 SUBQ QHS, (Reported) Lamivudine/Zidovudine (Combivir Tablet), 1 TAB ORAL BID, (Reported) Metformin Hcl* (Metformin Hcl*), 1,000 MG ORAL TWICE A DAY, (Reported) Nelfinavir Mesylate* (Viracept*), 750 MG ORAL THREE TIMES A DAY, (Reported) Tamsulosin HCl (Flomax), 0.4 MG ORAL DAILY, (Reported) Discontinued Medications Cephalexin* (Keflex*), 500 MG ORAL EVERY 6 HOURS Discontinued Reason: Therapy completed Meclizine Hcl* (Antivert*), 25 MG ORAL THREE TIMES A DAY Discontinued Reason: Therapy completed Patient History Healthcare decision maker Resuscitation status Full Code Advanced Directive on File No Past Medical/Surgical History Past Medical/Surgical History: (1) HIV disease (2) HTN (hypertension) (3) Diabetes mellitus out of control (4) Hepatitis C Review of Systems All Other Systems: negative except mentioned in HPI Physical Exam General Appearance: WD/WN Lines, tubes and drains: peripheral HEENT: normocephalic Neck: non-tender Respiratory/Chest: chest wall non-tender Cardiovascular/Chest: normal peripheral pulses Abdomen: normal bowel sounds Last 24 Hour Vital Signs Date Time Temp Pulse Resp B/P Pulse Ox O2 Delivery O2 Flow Rate FiO2 10/21/16 16:00 97.5 96 14 129/87 98 Nasal Cannula 2.0 10/21/16 12:02 98.1 10/21/16 12:00 97.9 98 21 142/92 98 Nasal Cannula 2.0 10/21/16 08:06 78 24 99 10/21/16 08:00 97.3 94 22 146/98 100 10/21/16 06:51 97.3 101 20 153/102 98 Nasal Cannula 2.0 10/21/16 05:42 97 18 157/102 100 Simple Mask 10.0 10/21/16 05:35 96 18 145/100 100 Simple Mask 10.0 10/21/16 05:19 96 18 146/98 100 Simple Mask 10.0 10/21/16 05:14 99 18 149/96 100 Simple Mask 10.0 10/21/16 05:10 101 18 100 10/21/16 05:09 99.4 101 18 140/101 100 Simple Mask 10.0 10/21/16 03:35 97.2 82 20 137/86 100 Room Air 10/21/16 02:30 98.3 78 14 126/85 100 Room Air 10/21/16 01:00 85 18 130/89 99 Room Air 10/20/16 23:45 97.2 87 22 135/90 98 Room Air 10/20/16 23:43 97.2 10/20/16 22:30 95.2 103 25 132/88 94 Room Air Intake and Output 10/20/16 10/21/16 18:59 06:59 Intake Total 4300 ml Output Total 0 ml Balance 4300 ml Intake IV Total 4300 ml Output Urine Total 0 ml Laboratory Tests Test 10/20/16 23:00 10/21/16 01:20 10/21/16 02:20 10/21/16 03:00 White Blood Count 15.0 K/UL (4.8-10.8) H Red Blood Count 5.44 M/UL (4.70-6.10) Hemoglobin 21.2 G/DL (14.2-18.0) *H Hematocrit 62.0 % (42.0-52.0) H Mean Corpuscular Volume 114 FL (80-99) H Mean Corpuscular Hemoglobin 38.9 PG (27.0-31.0) H Mean Corpuscular Hemoglobin Concent 34.2 G/DL (32.0-36.0) Red Cell Distribution Width 12.2 % (11.6-14.8) Platelet Count 176 K/UL (150-450) Mean Platelet Volume 8.8 FL (6.5-10.1) Neutrophils (%) (Auto) % (45.0-75.0) Lymphocytes (%) (Auto) % (20.0-45.0) Monocytes (%) (Auto) % (1.0-10.0) Eosinophils (%) (Auto) % (0.0-3.0) Basophils (%) (Auto) % (0.0-2.0) Prothrombin Time 10.9 SEC (9.30-11.50) Prothromb Time International Ratio 1.1 (0.9-1.1) Activated Partial Thromboplast Time 29 SEC (23-33) Sodium Level 139 mEQ/L (135-145) Potassium Level 4.1 mEQ/L (3.4-4.9) Chloride Level 91 mEQ/L (98-107) L Carbon Dioxide Level 24 mEQ/L (20-30) Anion Gap 24 (5-15) H Blood Urea Nitrogen 24 mg/dL (7-23) H Creatinine 1.5 mg/dL (0.7-1.2) H Estimat Glomerular Filtration Rate 58.1 mL/min (>60) Glucose Level 228 mg/dL (74-106) H Calcium Level 10.2 mg/dL (8.6-10.2) Total Bilirubin 1.0 mg/dL (0.0-1.2) Aspartate Amino Transf (AST/SGOT) 29 U/L (5-40) Alanine Aminotransferase (ALT/SGPT) 28 U/L (3-41) Alkaline Phosphatase 70 U/L (40-129) Total Creatine Kinase 215 U/L (38-174) H Troponin I < 0.30 ng/mL (<=0.30) Total Protein 8.5 g/dL (6.6-8.7) Albumin 4.1 g/dL (3.5-5.2) Globulin 4.4 g/dL Albumin/Globulin Ratio 0.9 (1.0-2.7) L Lipase 10 U/L (< 60) Lactic Acid Level 3.30 mmol/L (0.66-2.22) H 2.60 mmol/L (0.66-2.22) H Urine Color Kathya Urine Appearance Slightly cloudy Urine pH 5 (4.5-8.0) Urine Specific [place] 1.025 (1.005-1.035) Urine Protein 3+ (NEGATIVE) H Urine Glucose (UA) Negative (NEGATIVE) Urine Ketones 2+ (NEGATIVE) H Urine Occult Blood 1+ (NEGATIVE) H Urine Nitrite Positive (NEGATIVE) H Urine Bilirubin 2+ (NEGATIVE) H Urine Ictotest Positive Urine Urobilinogen 8 MG/DL (0.0-1.0) H Urine Leukocyte Esterase 1+ (NEGATIVE) H Urine RBC 0-2 /HPF (0 - 0) H Urine WBC 2-4 /HPF (0 - 0) Urine Squamous Epithelial Cells Few /LPF (NONE/OCC) Urine Bacteria Few /HPF (NONE) Urine Hyaline Casts 0-2 /LPF (NONE) H Urine Fine Granular Casts 0-2 /LPF (NONE) H Urine Mucus Moderate /LPF (NONE/OCC) H Height (Feet): 5 Height (Inches): 8.00 Weight (Pounds): 180 Medications Current Medications Medications (Trade) Dose Ordered Sig/Girish Route PRN Reason Start Time Stop Time Status Last Admin Dose Admin Acetaminophen (Tylenol) 650 mg Q4H PRN ORAL fever 10/21/16 03:15 11/20/16 03:14 Acetaminophen (Tylenol) 650 mg Q4H PRN RECTAL FEVER 10/21/16 05:15 11/20/16 05:14 Acetaminophen 650 mg 650 mg Q4H PRN ORAL Mild Pain (Pain Scale 1-3) 10/21/16 04:15 Al Hydroxide/Mg Hydroxide (Mylanta II) 30 ml Q6H PRN ORAL dyspepsia 10/21/16 03:15 11/20/16 03:14 Dextrose (Dextrose 50%) STAT PRN IV Hypoglycemia 10/21/16 03:15 11/20/16 03:14 Dextrose/ Electrolytes (D5 0.45%NS W/ KCl 20mEq) 1,000 ml @ 125 mls/hr Q8H IV 10/21/16 08:30 11/20/16 08:29 10/21/16 09:30 Diphenhydramine HCl (Benadryl) 25 mg Q6H PRN ORAL Itching/Pruritis 10/21/16 03:15 11/20/16 03:14 Enoxaparin Sodium (Lovenox) 30 mg DAILY SUBQ 10/21/16 09:00 11/20/16 08:59 10/21/16 09:35 Insulin Aspart (NovoLOG) BEFORE MEALS AND HS SUBQ 10/21/16 06:30 11/20/16 06:29 10/21/16 13:18 Ketorolac Tromethamine (Toradol 30mg) 30 mg Q6H PRN IV moderate pian 4-6 10/21/16 03:15 10/26/16 03:14 Metoclopramide HCl (Reglan) 10 mg Q6H PRN IVP Nausea & Vomiting 10/21/16 05:15 11/20/16 05:14 Morphine Sulfate (Morphine Sulfate) 2 mg EVERY 4 HOURS PRN IVP severe Pain (Pain Scale 7-10) 10/21/16 03:15 10/28/16 03:14 10/21/16 11:32 Nitroglycerin (Ntg) 0.4 mg Q5M X 3 DOSES PRN SL Prn Chest Pain 10/21/16 03:15 11/20/16 03:14 Ondansetron HCl (Zofran) 4 mg Q6H PRN IVP Nausea & Vomiting 10/21/16 05:15 11/20/16 05:14 Patient Own Medication (Patient's Own Med) 1 ea BID ORAL 10/21/16 21:00 11/20/16 20:59 Patient Own Medication 3 ea 3 ea TID ORAL 10/21/16 21:00 11/20/16 20:59 Piperacillin Sod/ Tazobactam Sod/ Sodium Chloride (Zosyn/Sodium Chloride 100ml bag) 100 ml @ 25 mls/hr Q8HR@0200,1000,1800 IVPB 10/21/16 19:00 10/28/16 18:59 Polyethylene Glycol (Miralax) 17 gm HSPRN PRN ORAL Constipation 10/21/16 03:15 11/20/16 03:14 Tamsulosin HCl (Flomax) 0.4 mg DAILY ORAL 10/21/16 09:00 11/20/16 08:59 10/21/16 09:32 Temazepam (Restoril) 15 mg HSPRN PRN ORAL Insomnia 10/21/16 03:15 10/28/16 03:14 Assessment/Plan Problem List: (1) HTN (hypertension) ICD Codes: I10 - HTN (hypertension) SNOMED: 67640158 (2) HIV disease ICD Codes: B20 - Human immunodeficiency virus [HIV] disease SNOMED: 96593659 (3) Perforated appendicitis ICD Codes: K35.2 - Acute appendicitis with generalized peritonitis SNOMED: 27013994, 38055565 Assessment/Plan IV antibiotics tolerated the surgery very well. continue hiv meds. BIENVENIDO MARCUM Oct 21, 2016 18:02
--- NOTE | 2016-10-21 20:13 | Cardiology Report ---
APPROVED REPORT EKG Measurement Heart [id number] [id number] Sinus tachycardia Left axis deviation Voltage criteria for left ventricular hypertrophy Nonspecific ST and T wave abnormality Abnormal ECG
[2016-10-21] MEDS: VIRACEPT ORAL SCH (20:51)
[2016-10-21] MEDS: COMBIVIR ORAL SCH (20:51)
--- NOTE | 2016-10-21 22:08 | Consultation ---
DATE OF CONSULTATION: 10/21/2016 INFECTIOUS DISEASE CONSULTATION REQUESTING PHYSICIAN: Mila Gordon M.D. REASON FOR CONSULTATION: Appendicitis. HISTORY OF PRESENT ILLNESS: This is a 61-year-old male with a history of HIV, on antiretroviral therapy with unknown CD4 count, admitted on 10/20/2016 with right lower quadrant abdominal pain and complains of pain for at least three weeks. CT scan was consistent with appendicitis. The patient was taken for exploratory laparotomy with appendectomy and drainage of a periappendiceal abscess. A wound culture is pending. He has evidence of the leukocytosis and renal insufficiency. He has been started on empiric Zosyn and ID now consulted to assist in management. PAST MEDICAL HISTORY: 1. Hypertension. 2. BPH. 3. Hepatitis C. 4. HIV, on antiretroviral therapy with unknown CD4 count. PAST SURGICAL HISTORY: Exploratory laparotomy and appendectomy on 10/21/2016. ALLERGIES: No known drug allergies. MEDICATIONS: 1. Zosyn. 2. Flomax. 3. Lovenox. SOCIAL HISTORY: The patient is disabled and denies tobacco, alcohol or illicit drug abuse. FAMILY HISTORY: Noncontributory. REVIEW OF SYSTEMS: As per history of present illness. Ten systems reviewed. All pertinent positives and negatives noted. PHYSICAL EXAMINATION: GENERAL: No apparent distress. Nontoxic appearing. VITAL SIGNS: Maximum temperature 99.4 degrees, blood pressure 142/92, heart rate in the 90s, respiratory rate 21 and saturating 98% on two liters nasal cannula. HEENT: No thrush. PULMONARY: Clear to auscultation bilaterally. CARDIOVASCULAR: Regular rate and rhythm. No murmurs. ABDOMEN: Hypoactive bowel sounds. Soft and nondistended. Incision bandage. EXTREMITIES: No edema. SKIN: No rash. NEUROLOGICAL: Alert and oriented x3, nonfocal. LABORATORY AND DIAGNOSTIC DATA: White blood cell count 15, hemoglobin 21.2 and platelets 178,000. Sodium 139, potassium 4.1, chloride 91, bicarbonate 24, BUN 24, and creatinine 1.5. Lactic acid 3.3 decreased to 2.6. Creatine kinase 215 and troponin negative x1. Lipase and liver function tests within normal limits. Microbiology, 1. On 10/21/2016, wound culture pending. 2. On 10/20/2016, blood culture pending. Imaging, CT abdomen pelvis is pending. ASSESSMENT: 1. Acute perforated appendicitis, periappendiceal abscess and peritonitis status post exploratory laparotomy with drainage of periappendiceal abscess and appendectomy on 10/21/2016. Wound cultures pending. 2. Human immunodeficiency virus positive, on combination antiretroviral therapy with Combivir and Viracept with unknown CD4 count. 3. History of hepatitis C and liver function tests within normal limits. 4. Leukocytosis, afebrile. 5. Acute renal insufficiency. 6. Diabetes type 2, hemoglobin A1c pending. 7. No known drug allergies. 8. Full Code. PLAN: 1. Continue Zosyn day #1 for 5-7. 2. Resume combination of antiretroviral therapy with Combivir and Viracept and followup with human immunodeficiency virus provider at discharge. 3. Follow up cultures. 4. Monitor CBC and temperatures. 5. Monitor BMP. Thank you. We will follow. Dez Nails M.D. DR: HOLLY JOB#: [id number] CC: Patti Lemon M.D. Arash Alborzi, M.D
[2016-10-22] VITALS: BP 129/86
[2016-10-22] MEDS: D5 1/2NS w/KCl 20mEq 1,000 ML IV SCH ×2 (02:05→17:42)
[2016-10-22] MEDS: Morphine Sulfate 2mg/ml Inj IVP PRN ×3 (02:17→19:17)
[2016-10-22 04:00] VITALS: BP 122/85
[2016-10-22] MEDS: NovoLOG Insulin Flexpen SUBQ SCH ×4 (06:13→21:30)
[2016-10-22 07:06] LABS: INR 1.1 (0.9-1.1); PROTHROMBIN TIME 11.3 SEC (9.30-11.50)
[2016-10-22 07:19] LABS: MEAN CORPUSCULAR HEMOGLOBIN 39.4 PG (27.0-31.0); MEAN CORPUSCULAR HGB CONC 34.9 G/DL (32.0-36.0); MEAN CORPUSCULAR VOLUME 113 FL (80-99); MEAN PLATELET VOLUME 8.4 FL (6.5-10.1); PLATELET COUNT 146 K/UL (150-450); RED BLOOD COUNT 4.06 M/UL (4.70-6.10); RED CELL DISTRIBUTION WIDTH 12.3 % (11.6-14.8); WHITE BLOOD COUNT 11.3 K/UL (4.8-10.8)
[2016-10-22 07:27] LABS: ALANINE AMINOTRANSFERASE 21 U/L (3-41); ALBUMIN/GLOBULIN RATIO 0.7 (1.0-2.7); AMYLASE 25 U/L (10-110); ANION GAP 13 (5-15); ASPARTATE AMINO TRANSFERASE 29 U/L (5-40); CALCIUM 8.7 mg/dL (8.6-10.2); CARBON DIOXIDE 27 mEQ/L (20-30); CHLORIDE 103 mEQ/L (98-107); GLOMERULAR FILTRATION RATE > 60 mL/min (>60); HEMOLYSIS 2; LIPASE 10 U/L (< 60); POTASSIUM 4.4 mEQ/L (3.4-4.9); SODIUM 143 mEQ/L (135-145); TOTAL PROTEIN 6.4 g/dL (6.6-8.7)
[2016-10-22 07:49] LABS: HEMOGLOBIN A1C 6.2 % (< 6.0)
[2016-10-22 08:00] VITALS: BP 135/86
[2016-10-22 08:02] LABS: ANISOCYTOSIS 1+; BAND NEUTROPHILS % (MANUAL) 1 % (0-8); BASOPHILS % (MANUAL) 0 % (0-2); EOSINOPHILS % (MANUAL) 0 % (0-3); LYMPHOCYTES % (MANUAL) 14 % (20-45); MACROCYTES 2+; NEUTROPHILS % (MANUAL) 80 % (45-75); PLATELET ESTIMATE DECREASED; PLATELET MORPHOLOGY NORMAL; TOTAL CELLS COUNTED 100
[2016-10-22] MEDS: Enoxaparin 30mg Inj SUBQ SCH (09:00)
[2016-10-22] MEDS: COMBIVIR ORAL SCH ×2 (09:26→17:28)
[2016-10-22] MEDS: VIRACEPT ORAL SCH ×3 (09:26→18:54)
[2016-10-22] MEDS: Tamsulosin 0.4mg cap ORAL SCH (09:27)
--- NOTE | 2016-10-22 10:39 | Diagnostic Imaging Report ---
Indication:Abdominal pain Technique: Grayscale and duplex Doppler imaging of the abdomen performed. Comparison: None Findings: The liver is enlarged measuring 19 cm. The demonstrated part of the pancreas, aorta and IVC, both kidneys, spleen appear unremarkable. Gallstones are present. No wall thickening or pericholecystic fluid identified. CBD is 3 mm. There is no biliary ductal dilatation identified. Doppler evaluation of the main portal vein shows patency. There is no ascites. No hydronephrosis seen. Impression: Cholelithiasis. Hepatomegaly.
[2016-10-22 12:00] VITALS: BP 119/72
--- NOTE | 2016-10-22 12:55 | Infectious Diseases Prog Note ---
Assessment/Plan Assessment/Plan ASSESSMENT: 61 y/o male with: // Acute perforated appendicitis / periappendiceal abscess / peritonitis - SP ex-lap drainage of periappendiceal abscess, appendectomy 10/21 - WCx GPC , GVR - CT A/P: acute appendicitis with perforation, small adjacent gas collection which may involving to abscess, small amount of pneumoperitoneum and free fluid. // HIV(+), on cART ( combivir, viracept ) - unknown CD4 // h/o HCV - LFTs WNL // Leukocytosis - improved, afebrile // BRENDAN - improved // DM2 - HbA1c 6.2% // NKDA // Full Code PLAN: - continue zosyn d# 2 / 5-7 - continue cART ( combivir, viracept ), f/u with regular HIV provider at discharge - f/u cultures - monitor CBC, temperatures - monitor BMP Subjective Allergies: Coded Allergies: No Known Allergies (Unverified , 02/15/13) Subjective remains afebrile. pain controlled Objective Vital Signs Last 24 Hour Vital Signs Date Time Temp Pulse Resp B/P Pulse Ox O2 Delivery O2 Flow Rate FiO2 10/22/16 08:51 98.1 10/22/16 08:00 98.2 94 20 135/86 99 Nasal Cannula 2.0 94 10/22/16 04:00 98.1 95 18 122/85 99 Nasal Cannula 2.0 10/22/16 00:00 98.1 99 16 129/86 97 Nasal Cannula 2.0 10/21/16 20:00 97.9 98 15 126/81 98 Room Air 10/21/16 16:00 97.5 96 14 129/87 98 Nasal Cannula 2.0 Height (Feet): 5 Height (Inches): 8.00 Weight (Pounds): 180 General Appearance: no acute distress Respiratory/Chest: no respiratory distress Cardiovascular: normal rate, regular rhythm Abdomen: non distended, hypoactive bowel sounds Microbiology Date/Time Source Procedure Growth Status 10/21/16 02:20 Blood Blood Culture - Preliminary NO GROWTH AFTER 24 HOURS Resulted 10/21/16 04:15 Abdominal Fluid Gram Stain - Final Resulted 10/21/16 04:15 Abdominal Fluid Aerobic Culture - Preliminary Resulted Laboratory Tests Test 10/22/16 06:25 White Blood Count 11.3 K/UL (4.8-10.8) H Red Blood Count 4.06 M/UL (4.70-6.10) L Hemoglobin 16.0 G/DL (14.2-18.0) Hematocrit 45.9 % (42.0-52.0) Mean Corpuscular Volume 113 FL (80-99) H Mean Corpuscular Hemoglobin 39.4 PG (27.0-31.0) H Mean Corpuscular Hemoglobin Concent 34.9 G/DL (32.0-36.0) Red Cell Distribution Width 12.3 % (11.6-14.8) Platelet Count 146 K/UL (150-450) L Mean Platelet Volume 8.4 FL (6.5-10.1) Neutrophils (%) (Auto) % (45.0-75.0) Lymphocytes (%) (Auto) % (20.0-45.0) Monocytes (%) (Auto) % (1.0-10.0) Eosinophils (%) (Auto) % (0.0-3.0) Basophils (%) (Auto) % (0.0-2.0) Differential Total Cells Counted 100 Neutrophils % (Manual) 80 % (45-75) H Lymphocytes % (Manual) 14 % (20-45) L Monocytes % (Manual) 5 % (1-10) Eosinophils % (Manual) 0 % (0-3) Basophils % (Manual) 0 % (0-2) Band Neutrophils 1 % (0-8) Platelet Estimate Decreased L Platelet Morphology Normal Anisocytosis 1+ Macrocytosis 2+ Prothrombin Time 11.3 SEC (9.30-11.50) Prothromb Time International Ratio 1.1 (0.9-1.1) Activated Partial Thromboplast Time 32 SEC (23-33) Sodium Level 143 mEQ/L (135-145) Potassium Level 4.4 mEQ/L (3.4-4.9) Chloride Level 103 mEQ/L (98-107) Carbon Dioxide Level 27 mEQ/L (20-30) Anion Gap 13 (5-15) Blood Urea Nitrogen 16 mg/dL (7-23) Creatinine 1.0 mg/dL (0.7-1.2) Estimat Glomerular Filtration Rate > 60 mL/min (>60) Glucose Level 142 mg/dL (74-106) H Hemoglobin A1c 6.2 % (< 6.0) H Calcium Level 8.7 mg/dL (8.6-10.2) Total Bilirubin 1.0 mg/dL (0.0-1.2) Aspartate Amino Transf (AST/SGOT) 29 U/L (5-40) Alanine Aminotransferase (ALT/SGPT) 21 U/L (3-41) Alkaline Phosphatase 71 U/L (40-129) Total Protein 6.4 g/dL (6.6-8.7) L Albumin 2.7 g/dL (3.5-5.2) L Globulin 3.7 g/dL Albumin/Globulin Ratio 0.7 (1.0-2.7) L Amylase Level 25 U/L (10-110) Lipase 10 U/L (< 60) Thyroid Stimulating Hormone (TSH) 3.420 uIU/mL (0.300-4.500) Current Medications Medications (Trade) Dose Ordered Sig/Girish Route PRN Reason Start Time Stop Time Status Last Admin Dose Admin Acetaminophen (Tylenol) 650 mg Q4H PRN ORAL fever 10/21/16 03:15 11/20/16 03:14 Acetaminophen (Tylenol) 650 mg Q4H PRN RECTAL FEVER 10/21/16 05:15 11/20/16 05:14 Acetaminophen 650 mg 650 mg Q4H PRN ORAL Mild Pain (Pain Scale 1-3) 10/21/16 04:15 Al Hydroxide/Mg Hydroxide (Mylanta II) 30 ml Q6H PRN ORAL dyspepsia 10/21/16 03:15 11/20/16 03:14 Dextrose (Dextrose 50%) STAT PRN IV Hypoglycemia 10/21/16 03:15 11/20/16 03:14 Dextrose/ Electrolytes (D5 0.45%NS W/ KCl 20mEq) 1,000 ml @ 125 mls/hr Q8H IV 10/21/16 08:30 11/20/16 08:29 10/22/16 02:05 Diphenhydramine HCl (Benadryl) 25 mg Q6H PRN ORAL Itching/Pruritis 10/21/16 03:15 11/20/16 03:14 Enoxaparin Sodium (Lovenox) 30 mg DAILY SUBQ 10/21/16 09:00 11/20/16 08:59 10/21/16 09:35 Insulin Aspart (NovoLOG) BEFORE MEALS AND HS SUBQ 10/21/16 06:30 11/20/16 06:29 10/22/16 06:13 Ketorolac Tromethamine (Toradol 30mg) 30 mg Q6H PRN IV moderate pian 4-6 10/21/16 03:15 10/26/16 03:14 Metoclopramide HCl (Reglan) 10 mg Q6H PRN IVP Nausea & Vomiting 10/21/16 05:15 11/20/16 05:14 Morphine Sulfate (Morphine Sulfate) 2 mg EVERY 4 HOURS PRN IVP severe Pain (Pain Scale 7-10) 10/21/16 03:15 10/28/16 03:14 10/22/16 08:21 Nitroglycerin (Ntg) 0.4 mg Q5M X 3 DOSES PRN SL Prn Chest Pain 10/21/16 03:15 11/20/16 03:14 Ondansetron HCl (Zofran) 4 mg Q6H PRN IVP Nausea & Vomiting 10/21/16 05:15 11/20/16 05:14 Patient Own Medication (Patient's Own Med) 1 ea BID ORAL 10/21/16 21:00 11/20/16 20:59 10/22/16 09:26 Patient Own Medication 3 ea 3 ea TID ORAL 10/21/16 21:00 11/20/16 20:59 10/22/16 09:26 Piperacillin Sod/ Tazobactam Sod/ Sodium Chloride (Zosyn/Sodium Chloride 100ml bag) 100 ml @ 25 mls/hr Q8HR@0200,1000,1800 IVPB 10/21/16 19:00 10/28/16 18:59 10/22/16 09:46 Polyethylene Glycol (Miralax) 17 gm HSPRN PRN ORAL Constipation 10/21/16 03:15 11/20/16 03:14 Tamsulosin HCl (Flomax) 0.4 mg DAILY ORAL 10/21/16 09:00 11/20/16 08:59 10/22/16 09:27 Temazepam (Restoril) 15 mg HSPRN PRN ORAL Insomnia 10/21/16 03:15 10/28/16 03:14 YANNICK PARRA Oct 22, 2016 12:55
[2016-10-22] MEDS ORDERED: D5W 55ML IV ONE (13:37)
[2016-10-22] MEDS ORDERED: NS 275ml ONE (13:37)
--- NOTE | 2016-10-22 14:46 | General Surgery Progress Note ---
General Surgery-Progress Note Subjective Procedure Performed exploratory laparotomy , appendectomy and drainage of periappendiceal abscess Symptoms: improved Objective Last 24 Hour Vital Signs Date Time Temp Pulse Resp B/P Pulse Ox O2 Delivery O2 Flow Rate FiO2 10/22/16 08:51 98.1 10/22/16 08:00 98.2 94 20 135/86 99 Nasal Cannula 2.0 94 10/22/16 04:00 98.1 95 18 122/85 99 Nasal Cannula 2.0 10/22/16 00:00 98.1 99 16 129/86 97 Nasal Cannula 2.0 10/21/16 20:00 97.9 98 15 126/81 98 Room Air 10/21/16 16:00 97.5 96 14 129/87 98 Nasal Cannula 2.0 I&O Intake and Output 10/21/16 10/22/16 19:00 07:00 Intake Total 1135.0 ml 1045 ml Output Total 620 ml 970 ml Balance 515.0 ml 75 ml Intake Oral 120 ml IV Total 1135.0 ml 925 ml Output Urine Total 600 ml 950 ml Drainage Total 20 ml 20 ml # Voids 3 1 Wound: clean, intact Drains: sherron Respiratory: clear Abdomen: soft, flat, tenderness, absent bowel sounds Extremities: no edema, no tenderness Laboratory Tests Test 10/22/16 06:25 White Blood Count 11.3 K/UL (4.8-10.8) H Red Blood Count 4.06 M/UL (4.70-6.10) L Hemoglobin 16.0 G/DL (14.2-18.0) Hematocrit 45.9 % (42.0-52.0) Mean Corpuscular Volume 113 FL (80-99) H Mean Corpuscular Hemoglobin 39.4 PG (27.0-31.0) H Mean Corpuscular Hemoglobin Concent 34.9 G/DL (32.0-36.0) Red Cell Distribution Width 12.3 % (11.6-14.8) Platelet Count 146 K/UL (150-450) L Mean Platelet Volume 8.4 FL (6.5-10.1) Neutrophils (%) (Auto) % (45.0-75.0) Lymphocytes (%) (Auto) % (20.0-45.0) Monocytes (%) (Auto) % (1.0-10.0) Eosinophils (%) (Auto) % (0.0-3.0) Basophils (%) (Auto) % (0.0-2.0) Differential Total Cells Counted 100 Neutrophils % (Manual) 80 % (45-75) H Lymphocytes % (Manual) 14 % (20-45) L Monocytes % (Manual) 5 % (1-10) Eosinophils % (Manual) 0 % (0-3) Basophils % (Manual) 0 % (0-2) Band Neutrophils 1 % (0-8) Platelet Estimate Decreased L Platelet Morphology Normal Anisocytosis 1+ Macrocytosis 2+ Prothrombin Time 11.3 SEC (9.30-11.50) Prothromb Time International Ratio 1.1 (0.9-1.1) Activated Partial Thromboplast Time 32 SEC (23-33) Sodium Level 143 mEQ/L (135-145) Potassium Level 4.4 mEQ/L (3.4-4.9) Chloride Level 103 mEQ/L (98-107) Carbon Dioxide Level 27 mEQ/L (20-30) Anion Gap 13 (5-15) Blood Urea Nitrogen 16 mg/dL (7-23) Creatinine 1.0 mg/dL (0.7-1.2) Estimat Glomerular Filtration Rate > 60 mL/min (>60) Glucose Level 142 mg/dL (74-106) H Hemoglobin A1c 6.2 % (< 6.0) H Calcium Level 8.7 mg/dL (8.6-10.2) Total Bilirubin 1.0 mg/dL (0.0-1.2) Aspartate Amino Transf (AST/SGOT) 29 U/L (5-40) Alanine Aminotransferase (ALT/SGPT) 21 U/L (3-41) Alkaline Phosphatase 71 U/L (40-129) Total Protein 6.4 g/dL (6.6-8.7) L Albumin 2.7 g/dL (3.5-5.2) L Globulin 3.7 g/dL Albumin/Globulin Ratio 0.7 (1.0-2.7) L Amylase Level 25 U/L (10-110) Lipase 10 U/L (< 60) Thyroid Stimulating Hormone (TSH) 3.420 uIU/mL (0.300-4.500) Assessment Post-op Diagnosis acute perforated appendicitis with generalised peritonitis Plan Additional Comments continue IV antibiotics WENDY MELTON Oct 22, 2016 14:46
--- NOTE | 2016-10-22 15:26 | Pulmonology Progress Note ---
Assessment/Plan Problems: (1) Perforated appendicitis (2) HTN (hypertension) (3) HIV disease Assessment/Plan IV fluids Iv antibiotic once start oral feeding, might go home with Iv or PO antibiotics Subjective ROS Limited/Unobtainable: No Interval Events: still NPO Allergies: Coded Allergies: No Known Allergies (Unverified , 02/15/13) Objective Last 24 Hour Vital Signs Date Time Temp Pulse Resp B/P Pulse Ox O2 Delivery O2 Flow Rate FiO2 10/22/16 08:51 98.1 10/22/16 08:00 98.2 94 20 135/86 99 Nasal Cannula 2.0 94 10/22/16 04:00 98.1 95 18 122/85 99 Nasal Cannula 2.0 10/22/16 00:00 98.1 99 16 129/86 97 Nasal Cannula 2.0 10/21/16 20:00 97.9 98 15 126/81 98 Room Air 10/21/16 16:00 97.5 96 14 129/87 98 Nasal Cannula 2.0 Intake and Output 10/21/16 10/22/16 19:00 07:00 Intake Total 1135.0 ml 1045 ml Output Total 620 ml 970 ml Balance 515.0 ml 75 ml Intake Oral 120 ml IV Total 1135.0 ml 925 ml Output Urine Total 600 ml 950 ml Drainage Total 20 ml 20 ml # Voids 3 1 General Appearance: WD/WN HEENT: normocephalic, atraumatic Respiratory/Chest: chest wall non-tender, lungs clear Cardiovascular: normal peripheral pulses, normal rate Abdomen: normal bowel sounds, soft, non tender Genitourinary: normal external genitalia Neurologic/Psychiatric: outboard motor tester II-XII grossly normal Lymphatic: no neck adenopathy Microbiology Date/Time Source Procedure Growth Status 10/21/16 02:20 Blood Blood Culture - Preliminary NO GROWTH AFTER 24 HOURS Resulted 10/21/16 04:15 Abdominal Fluid Gram Stain - Final Resulted 10/21/16 04:15 Abdominal Fluid Aerobic Culture - Preliminary Resulted Laboratory Tests 10/22/16 06:25: White Blood Count 11.3H, Red Blood Count 4.06L, Hemoglobin 16.0, Hematocrit 45.9 , Mean Corpuscular Volume 113H, Mean Corpuscular Hemoglobin 39.4H, Mean Corpuscular Hemoglobin Concent 34.9, Red Cell Distribution Width 12.3, Platelet Count 146L, Mean Platelet Volume 8.4, Neutrophils (%) (Auto) , Lymphocytes (%) ( Auto) , Monocytes (%) (Auto) , Eosinophils (%) (Auto) , Basophils (%) (Auto) , Differential Total Cells Counted 100, Neutrophils % (Manual) 80H, Lymphocytes % (Manual) 14L, Monocytes % (Manual) 5, Eosinophils % (Manual) 0, Basophils % ( Manual) 0, Band Neutrophils 1, Platelet Estimate DecreasedL, Platelet Morphology Normal, Anisocytosis 1+, Macrocytosis 2+, Prothrombin Time 11.3, Prothromb Time International Ratio 1.1, Activated Partial Thromboplast Time 32, Sodium Level 143, Potassium Level 4.4, Chloride Level 103, Carbon Dioxide Level 27, Anion Gap 13, Blood Urea Nitrogen 16, Creatinine 1.0, Estimat Glomerular Filtration Rate > 60, Glucose Level 142H, Hemoglobin A1c 6.2H, Calcium Level 8.7 , Total Bilirubin 1.0, Aspartate Amino Transf (AST/SGOT) 29, Alanine Aminotransferase (ALT/SGPT) 21, Alkaline Phosphatase 71, Total Protein 6.4L, Albumin 2.7L, Globulin 3.7, Albumin/Globulin Ratio 0.7L, Amylase Level 25, Lipase 10, Thyroid Stimulating Hormone (TSH) 3.420 Current Medications Medications (Trade) Dose Ordered Sig/Girish Route PRN Reason Start Time Stop Time Status Last Admin Dose Admin Acetaminophen (Tylenol) 650 mg Q4H PRN ORAL fever 10/21/16 03:15 11/20/16 03:14 Acetaminophen (Tylenol) 650 mg Q4H PRN RECTAL FEVER 10/21/16 05:15 11/20/16 05:14 Acetaminophen 650 mg 650 mg Q4H PRN ORAL Mild Pain (Pain Scale 1-3) 10/21/16 04:15 Al Hydroxide/Mg Hydroxide (Mylanta II) 30 ml Q6H PRN ORAL dyspepsia 10/21/16 03:15 11/20/16 03:14 Dextrose (Dextrose 50%) STAT PRN IV Hypoglycemia 10/21/16 03:15 11/20/16 03:14 Dextrose/ Electrolytes (D5 0.45%NS W/ KCl 20mEq) 1,000 ml @ 125 mls/hr Q8H IV 10/21/16 08:30 11/20/16 08:29 10/22/16 02:05 Diphenhydramine HCl (Benadryl) 25 mg Q6H PRN ORAL Itching/Pruritis 10/21/16 03:15 11/20/16 03:14 Enoxaparin Sodium (Lovenox) 30 mg DAILY SUBQ 10/21/16 09:00 11/20/16 08:59 10/21/16 09:35 Insulin Aspart (NovoLOG) BEFORE MEALS AND HS SUBQ 10/21/16 06:30 11/20/16 06:29 10/22/16 13:02 Ketorolac Tromethamine (Toradol 30mg) 30 mg Q6H PRN IV moderate pian 4-6 10/21/16 03:15 10/26/16 03:14 Metoclopramide HCl (Reglan) 10 mg Q6H PRN IVP Nausea & Vomiting 10/21/16 05:15 11/20/16 05:14 Morphine Sulfate (Morphine Sulfate) 2 mg EVERY 4 HOURS PRN IVP severe Pain (Pain Scale 7-10) 10/21/16 03:15 10/28/16 03:14 10/22/16 08:21 Nitroglycerin (Ntg) 0.4 mg Q5M X 3 DOSES PRN SL Prn Chest Pain 10/21/16 03:15 11/20/16 03:14 Ondansetron HCl (Zofran) 4 mg Q6H PRN IVP Nausea & Vomiting 10/21/16 05:15 11/20/16 05:14 Patient Own Medication (Patient's Own Med) 1 ea BID ORAL 10/21/16 21:00 11/20/16 20:59 10/22/16 09:26 Patient Own Medication 3 ea 3 ea TID ORAL 10/21/16 21:00 11/20/16 20:59 10/22/16 12:59 Piperacillin Sod/ Tazobactam Sod/ Sodium Chloride (Zosyn/Sodium Chloride 100ml bag) 100 ml @ 25 mls/hr Q8HR@0200,1000,1800 IVPB 10/21/16 19:00 10/28/16 18:59 10/22/16 09:46 Polyethylene Glycol (Miralax) 17 gm HSPRN PRN ORAL Constipation 10/21/16 03:15 11/20/16 03:14 Tamsulosin HCl (Flomax) 0.4 mg DAILY ORAL 10/21/16 09:00 11/20/16 08:59 10/22/16 09:27 Temazepam (Restoril) 15 mg HSPRN PRN ORAL Insomnia 10/21/16 03:15 10/28/16 03:14 BIENVENIDO MARCUM Oct 22, 2016 15:26
[2016-10-22 16:00] VITALS: BP 140/89
[2016-10-22 20:03] VITALS: BP 148/93
[2016-10-23] VITALS: BP 158/93
[2016-10-23] MEDS: D5 1/2NS w/KCl 20mEq 1,000 ML IV SCH ×3 (00:30→16:50)
[2016-10-23] MEDS: Morphine Sulfate 2mg/ml Inj IVP PRN ×4 (01:07→16:49)
[2016-10-23 04:00] VITALS: BP 155/95
[2016-10-23] MEDS: NovoLOG Insulin Flexpen SUBQ SCH ×4 (06:24→21:02)
[2016-10-23 08:00] VITALS: BP 164/99
[2016-10-23 08:22] LABS: ANION GAP 10 (5-15); CALCIUM 9.1 mg/dL (8.6-10.2); CARBON DIOXIDE 29 mEQ/L (20-30); CHLORIDE 102 mEQ/L (98-107); CREATININE 0.8 mg/dL (0.7-1.2); GLOMERULAR FILTRATION RATE > 60 mL/min (>60); HEMOLYSIS 8; POTASSIUM 4.4 mEQ/L (3.4-4.9); SODIUM 141 mEQ/L (135-145)
--- NOTE | 2016-10-23 08:30 | Diagnostic Imaging Report ---
Indications: Cough, abdominal pain Technique: Portable AP chest Findings: Comparison: 05/07/16 Consolidative opacity right lung base abutting pleural fissure. Elevation of the subjacent right hemidiaphragm. Suggestion of ill-defined opacity left lung base. Inspiratory effort has decreased. Cardiac silhouette remains upper limits of normal size. Pulmonary vasculature remains within normal limits. No pleural abnormalities demonstrated. IMPRESSION: Right lower lobe consolidation compatible with but not specific for pneumonia. Associated parenchymal volume loss. Suggestion of left lung base opacity, poorly defined, most likely atelectatic. Focal pneumonia not excludable.
[2016-10-23] MEDS: COMBIVIR ORAL SCH ×2 (08:33→17:08)
[2016-10-23] MEDS: Tamsulosin 0.4mg cap ORAL SCH (08:33)
[2016-10-23] MEDS: VIRACEPT ORAL SCH ×3 (08:33→17:08)
--- NOTE | 2016-10-23 08:36 | Infectious Diseases Prog Note ---
Assessment/Plan Assessment/Plan ASSESSMENT: 61 y/o male with: // Acute perforated appendicitis / periappendiceal abscess / peritonitis - SP ex-lap drainage of periappendiceal abscess, appendectomy 10/21 - WCx GPC , GVR - CT A/P: acute appendicitis with perforation, small adjacent gas collection which may involving to abscess, small amount of pneumoperitoneum and free fluid. // HIV(+), on cART ( combivir, viracept ) - unknown CD4 // h/o HCV - LFTs WNL // Leukocytosis - improved, afebrile. Repeat CBC pending // BRENDAN - improved // DM2 - HbA1c 6.2% // NKDA // Full Code PLAN: - continue zosyn d# 3 / 5-7 - continue cART ( combivir, viracept ), f/u with regular HIV provider at discharge - f/u cultures - monitor CBC, temperatures - monitor BMP Subjective Allergies: Coded Allergies: No Known Allergies (Unverified , 02/15/13) Subjective remains afebrile. pain controlled CBC pending Objective Vital Signs Last 24 Hour Vital Signs Date Time Temp Pulse Resp B/P Pulse Ox O2 Delivery O2 Flow Rate FiO2 10/23/16 04:00 98.1 85 19 155/95 98 Room Air 10/23/16 00:00 97.7 85 19 158/93 98 Room Air 10/22/16 20:03 97.5 98 14 148/93 98 Room Air 10/22/16 19:47 97.3 10/22/16 16:00 97.3 90 13 140/89 98 Room Air 10/22/16 12:00 97.4 90 20 119/72 95 Nasal Cannula 2.0 90 Height (Feet): 5 Height (Inches): 8.00 Weight (Pounds): 180 General Appearance: no acute distress Respiratory/Chest: no respiratory distress Cardiovascular: normal rate, regular rhythm Abdomen: non distended, hypoactive bowel sounds Microbiology Date/Time Source Procedure Growth Status 10/21/16 02:20 Blood Blood Culture - Preliminary NO GROWTH AFTER 48 HOURS Resulted 10/21/16 13:45 Nasal Nares MRSA Culture - Final NO METHICILLIN RESISTANT STAPH AUREUS... Complete 10/21/16 13:45 Rectum VRE Culture - Final NO VANCOMYCIN RESISTANT ENTEROCOCCUS ... Complete 10/21/16 04:15 Abdominal Fluid Gram Stain - Final Resulted 10/21/16 04:15 Abdominal Fluid Aerobic Culture - Preliminary Resulted Laboratory Tests Test 10/23/16 07:59 White Blood Count Pending Red Blood Count Pending Hemoglobin Pending Hematocrit Pending Mean Corpuscular Volume Pending Mean Corpuscular Hemoglobin Pending Mean Corpuscular Hemoglobin Concent Pending Red Cell Distribution Width Pending Platelet Count Pending Mean Platelet Volume Pending Neutrophils (%) (Auto) Pending Lymphocytes (%) (Auto) Pending Monocytes (%) (Auto) Pending Eosinophils (%) (Auto) Pending Basophils (%) (Auto) Pending Sodium Level 141 mEQ/L (135-145) Potassium Level 4.4 mEQ/L (3.4-4.9) Chloride Level 102 mEQ/L (98-107) Carbon Dioxide Level 29 mEQ/L (20-30) Anion Gap 10 (5-15) Blood Urea Nitrogen 14 mg/dL (7-23) Creatinine 0.8 mg/dL (0.7-1.2) Estimat Glomerular Filtration Rate > 60 mL/min (>60) Glucose Level 190 mg/dL (74-106) H Calcium Level 9.1 mg/dL (8.6-10.2) Current Medications Medications (Trade) Dose Ordered Sig/Girish Route PRN Reason Start Time Stop Time Status Last Admin Dose Admin Acetaminophen (Tylenol) 650 mg Q4H PRN ORAL fever 10/21/16 03:15 11/20/16 03:14 Acetaminophen (Tylenol) 650 mg Q4H PRN RECTAL FEVER 10/21/16 05:15 11/20/16 05:14 Acetaminophen 650 mg 650 mg Q4H PRN ORAL Mild Pain (Pain Scale 1-3) 10/21/16 04:15 Al Hydroxide/Mg Hydroxide (Mylanta II) 30 ml Q6H PRN ORAL dyspepsia 10/21/16 03:15 11/20/16 03:14 Dextrose (Dextrose 50%) STAT PRN IV Hypoglycemia 10/21/16 03:15 11/20/16 03:14 Dextrose/ Electrolytes (D5 0.45%NS W/ KCl 20mEq) 1,000 ml @ 125 mls/hr Q8H IV 10/21/16 08:30 11/20/16 08:29 10/23/16 03:40 Diphenhydramine HCl (Benadryl) 25 mg Q6H PRN ORAL Itching/Pruritis 10/21/16 03:15 11/20/16 03:14 Enoxaparin Sodium (Lovenox) 30 mg DAILY SUBQ 10/21/16 09:00 11/20/16 08:59 10/21/16 09:35 Insulin Aspart (NovoLOG) BEFORE MEALS AND HS SUBQ 10/21/16 06:30 11/20/16 06:29 10/23/16 06:24 Ketorolac Tromethamine (Toradol 30mg) 30 mg Q6H PRN IV moderate pian 4-6 10/21/16 03:15 10/26/16 03:14 Metoclopramide HCl (Reglan) 10 mg Q6H PRN IVP Nausea & Vomiting 10/21/16 05:15 11/20/16 05:14 Morphine Sulfate (Morphine Sulfate) 2 mg EVERY 4 HOURS PRN IVP severe Pain (Pain Scale 7-10) 10/21/16 03:15 10/28/16 03:14 10/23/16 05:17 Nitroglycerin (Ntg) 0.4 mg Q5M X 3 DOSES PRN SL Prn Chest Pain 10/21/16 03:15 11/20/16 03:14 Ondansetron HCl (Zofran) 4 mg Q6H PRN IVP Nausea & Vomiting 10/21/16 05:15 11/20/16 05:14 10/23/16 04:40 Patient Own Medication (Patient's Own Med) 1 ea BID ORAL 10/21/16 21:00 11/20/16 20:59 10/23/16 08:33 Patient Own Medication 3 ea 3 ea TID ORAL 10/21/16 21:00 11/20/16 20:59 10/23/16 08:33 Piperacillin Sod/ Tazobactam Sod/ Sodium Chloride (Zosyn/Sodium Chloride 100ml bag) 100 ml @ 25 mls/hr Q8HR@0200,1000,1800 IVPB 10/21/16 19:00 10/28/16 18:59 10/23/16 02:08 Polyethylene Glycol (Miralax) 17 gm HSPRN PRN ORAL Constipation 10/21/16 03:15 11/20/16 03:14 Tamsulosin HCl (Flomax) 0.4 mg DAILY ORAL 10/21/16 09:00 11/20/16 08:59 10/23/16 08:33 Temazepam (Restoril) 15 mg HSPRN PRN ORAL Insomnia 10/21/16 03:15 10/28/16 03:14 YANNICK PARRA Oct 23, 2016 08:36
[2016-10-23 08:38] LABS: MEAN CORPUSCULAR HEMOGLOBIN 39.7 PG (27.0-31.0); MEAN CORPUSCULAR VOLUME 114 FL (80-99); MEAN PLATELET VOLUME 8.7 FL (6.5-10.1); PLATELET COUNT 198 K/UL (150-450); RED BLOOD COUNT 4.23 M/UL (4.70-6.10); RED CELL DISTRIBUTION WIDTH 12.6 % (11.6-14.8); WHITE BLOOD COUNT 8.7 K/UL (4.8-10.8)
[2016-10-23] MEDS: Enoxaparin 30mg Inj SUBQ SCH (09:32)
--- NOTE | 2016-10-23 10:05 | General Surgery Progress Note ---
General Surgery-Progress Note Subjective Procedure Performed exploratory laparotomy , appendectomy and drainage of periappendiceal abscess Objective Last 24 Hour Vital Signs Date Time Temp Pulse Resp B/P Pulse Ox O2 Delivery O2 Flow Rate FiO2 10/23/16 08:00 98.1 81 20 164/99 98 Room Air 10/23/16 04:00 98.1 85 19 155/95 98 Room Air 10/23/16 00:00 97.7 85 19 158/93 98 Room Air 10/22/16 20:03 97.5 98 14 148/93 98 Room Air 10/22/16 19:47 97.3 10/22/16 16:00 97.3 90 13 140/89 98 Room Air 10/22/16 12:00 97.4 90 20 119/72 95 Nasal Cannula 2.0 90 I&O Intake and Output 10/22/16 10/23/16 18:59 06:59 Intake Total 842.5 ml 1050 ml Output Total 1075 ml 1110 ml Balance -232.5 ml -60 ml IV Total 842.5 ml 1050 ml Output Urine Total 1050 ml 1000 ml Drainage Total 25 ml 110 ml # Voids 2 5 Dressing: dry Drains: sherron Respiratory: clear Abdomen: soft, flat, tenderness, absent bowel sounds Extremities: no edema, no tenderness Laboratory Tests Test 10/23/16 07:59 White Blood Count 8.7 K/UL (4.8-10.8) Red Blood Count 4.23 M/UL (4.70-6.10) L Hemoglobin 16.8 G/DL (14.2-18.0) Hematocrit 48.0 % (42.0-52.0) Mean Corpuscular Volume 114 FL (80-99) H Mean Corpuscular Hemoglobin 39.7 PG (27.0-31.0) H Mean Corpuscular Hemoglobin Concent 35.0 G/DL (32.0-36.0) Red Cell Distribution Width 12.6 % (11.6-14.8) Platelet Count 198 K/UL (150-450) Mean Platelet Volume 8.7 FL (6.5-10.1) Neutrophils (%) (Auto) % (45.0-75.0) Lymphocytes (%) (Auto) % (20.0-45.0) Monocytes (%) (Auto) % (1.0-10.0) Eosinophils (%) (Auto) % (0.0-3.0) Basophils (%) (Auto) % (0.0-2.0) Neutrophils % (Manual) Pending Lymphocytes % (Manual) Pending Platelet Estimate Pending Sodium Level 141 mEQ/L (135-145) Potassium Level 4.4 mEQ/L (3.4-4.9) Chloride Level 102 mEQ/L (98-107) Carbon Dioxide Level 29 mEQ/L (20-30) Anion Gap 10 (5-15) Blood Urea Nitrogen 14 mg/dL (7-23) Creatinine 0.8 mg/dL (0.7-1.2) Estimat Glomerular Filtration Rate > 60 mL/min (>60) Glucose Level 190 mg/dL (74-106) H Calcium Level 9.1 mg/dL (8.6-10.2) Assessment Post-op Diagnosis acute perforated appendicitis with generalised peritonitis Plan Additional Comments continue as before WENDY MELTON Oct 23, 2016 10:05
--- NOTE | 2016-10-23 11:16 | Pulmonology Progress Note ---
Assessment/Plan Problems: (1) Perforated appendicitis (2) HTN (hypertension) (3) HIV disease Assessment/Plan IV fluids Iv antibiotic ESTEVAN draining still npo check labs daily f/u cultures of abdominal fluid Subjective ROS Limited/Unobtainable: No Interval Events: doing better, still npo Allergies: Coded Allergies: No Known Allergies (Unverified , 02/15/13) Objective Last 24 Hour Vital Signs Date Time Temp Pulse Resp B/P Pulse Ox O2 Delivery O2 Flow Rate FiO2 10/23/16 08:00 98.1 81 20 164/99 98 Room Air 10/23/16 04:00 98.1 85 19 155/95 98 Room Air 10/23/16 00:00 97.7 85 19 158/93 98 Room Air 10/22/16 20:03 97.5 98 14 148/93 98 Room Air 10/22/16 19:47 97.3 10/22/16 16:00 97.3 90 13 140/89 98 Room Air 10/22/16 12:00 97.4 90 20 119/72 95 Nasal Cannula 2.0 90 Intake and Output 10/22/16 10/23/16 18:59 06:59 Intake Total 842.5 ml 1050 ml Output Total 1075 ml 1110 ml Balance -232.5 ml -60 ml IV Total 842.5 ml 1050 ml Output Urine Total 1050 ml 1000 ml Drainage Total 25 ml 110 ml # Voids 2 5 General Appearance: WD/WN HEENT: normocephalic, anicteric Respiratory/Chest: chest wall non-tender, lungs clear Cardiovascular: normal peripheral pulses, regular rhythm Abdomen: normal bowel sounds, soft, non tender Extremities: no cyanosis 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 Complete 10/21/16 13:45 Rectum VRE Culture - Final NO VANCOMYCIN RESISTANT ENTEROCOCCUS ... Complete 10/21/16 04:15 Abdominal Fluid Gram Stain - Final Resulted 10/21/16 04:15 Aerobic Culture - Preliminary Gram Negative Bacillus 1 Strep Species, Alpha Hemolytic Resulted Laboratory Tests 10/23/16 07:59: White Blood Count 8.7, Red Blood Count 4.23L, Hemoglobin 16.8, Hematocrit 48.0, Mean Corpuscular Volume 114H, Mean Corpuscular Hemoglobin 39.7H, Mean Corpuscular Hemoglobin Concent 35.0, Red Cell Distribution Width 12.6, Platelet Count 198, Mean Platelet Volume 8.7, Neutrophils (%) (Auto) , Lymphocytes (%) ( Auto) , Monocytes (%) (Auto) , Eosinophils (%) (Auto) , Basophils (%) (Auto) , Neutrophils % (Manual) [Pending], Lymphocytes % (Manual) [Pending], Platelet Estimate [Pending], Sodium Level 141, Potassium Level 4.4, Chloride Level 102, Carbon Dioxide Level 29, Anion Gap 10, Blood Urea Nitrogen 14, Creatinine 0.8, Estimat Glomerular Filtration Rate > 60, Glucose Level 190H, Calcium Level 9.1 Current Medications Medications (Trade) Dose Ordered Sig/Girish Route PRN Reason Start Time Stop Time Status Last Admin Dose Admin Acetaminophen (Tylenol) 650 mg Q4H PRN ORAL fever 10/21/16 03:15 11/20/16 03:14 Acetaminophen (Tylenol) 650 mg Q4H PRN RECTAL FEVER 10/21/16 05:15 11/20/16 05:14 Acetaminophen 650 mg 650 mg Q4H PRN ORAL Mild Pain (Pain Scale 1-3) 10/21/16 04:15 Al Hydroxide/Mg Hydroxide (Mylanta II) 30 ml Q6H PRN ORAL dyspepsia 10/21/16 03:15 11/20/16 03:14 Dextrose (Dextrose 50%) STAT PRN IV Hypoglycemia 10/21/16 03:15 11/20/16 03:14 Dextrose/ Electrolytes (D5 0.45%NS W/ KCl 20mEq) 1,000 ml @ 125 mls/hr Q8H IV 10/21/16 08:30 11/20/16 08:29 10/23/16 03:40 Diphenhydramine HCl (Benadryl) 25 mg Q6H PRN ORAL Itching/Pruritis 10/21/16 03:15 11/20/16 03:14 Enoxaparin Sodium (Lovenox) 30 mg DAILY SUBQ 10/21/16 09:00 11/20/16 08:59 10/23/16 09:32 Insulin Aspart (NovoLOG) BEFORE MEALS AND HS SUBQ 10/21/16 06:30 11/20/16 06:29 10/23/16 06:24 Ketorolac Tromethamine (Toradol 30mg) 30 mg Q6H PRN IV moderate pian 4-6 10/21/16 03:15 10/26/16 03:14 Metoclopramide HCl (Reglan) 10 mg Q6H PRN IVP Nausea & Vomiting 10/21/16 05:15 11/20/16 05:14 Morphine Sulfate (Morphine Sulfate) 2 mg EVERY 4 HOURS PRN IVP severe Pain (Pain Scale 7-10) 10/21/16 03:15 10/28/16 03:14 10/23/16 11:03 Nitroglycerin (Ntg) 0.4 mg Q5M X 3 DOSES PRN SL Prn Chest Pain 10/21/16 03:15 11/20/16 03:14 Ondansetron HCl (Zofran) 4 mg Q6H PRN IVP Nausea & Vomiting 10/21/16 05:15 11/20/16 05:14 10/23/16 04:40 Patient Own Medication (Patient's Own Med) 1 ea BID ORAL 10/21/16 21:00 11/20/16 20:59 10/23/16 08:33 Patient Own Medication 3 ea 3 ea TID ORAL 10/21/16 21:00 11/20/16 20:59 10/23/16 08:33 Piperacillin Sod/ Tazobactam Sod/ Sodium Chloride (Zosyn/Sodium Chloride 100ml bag) 100 ml @ 25 mls/hr Q8HR@0200,1000,1800 IVPB 10/21/16 19:00 10/28/16 18:59 10/23/16 10:18 Polyethylene Glycol (Miralax) 17 gm HSPRN PRN ORAL Constipation 10/21/16 03:15 11/20/16 03:14 Tamsulosin HCl (Flomax) 0.4 mg DAILY ORAL 10/21/16 09:00 11/20/16 08:59 10/23/16 08:33 Temazepam (Restoril) 15 mg HSPRN PRN ORAL Insomnia 10/21/16 03:15 10/28/16 03:14 BIENVENIDO MARCUM Oct 23, 2016 11:16
[2016-10-23 11:36] LABS: LYMPHOCYTES % (MANUAL) 14 % (20-45); NEUTROPHILS % (MANUAL) 78 % (45-75); TOTAL CELLS COUNTED 100
[2016-10-23 11:37] LABS: ANISOCYTOSIS 1+; BAND NEUTROPHILS % (MANUAL) 0 % (0-8); BASOPHILS % (MANUAL) 0 % (0-2); EOSINOPHILS % (MANUAL) 0 % (0-3); MACROCYTES 2+; PLATELET ESTIMATE ADEQUATE; PLATELET MORPHOLOGY NORMAL
[2016-10-23 12:00] VITALS: BP 152/92
[2016-10-23 16:00] VITALS: BP 140/74
[2016-10-23] MEDS ORDERED: Tubing IV Secondary IV ONE (18:50)
[2016-10-23 20:00] VITALS: BP 148/90
[2016-10-24] VITALS: BP 148/99
[2016-10-24] MEDS: D5 1/2NS w/KCl 20mEq 1,000 ML IV SCH ×3 (00:30→17:10)
[2016-10-24 04:00] VITALS: BP 161/109
[2016-10-24] MEDS: Morphine Sulfate 2mg/ml Inj IVP PRN ×3 (05:16→17:10)
[2016-10-24] MEDS: NovoLOG Insulin Flexpen SUBQ SCH ×4 (06:02→21:00)
[2016-10-24 07:43] LABS: MEAN CORPUSCULAR HEMOGLOBIN 39.5 PG (27.0-31.0); MEAN CORPUSCULAR HGB CONC 34.6 G/DL (32.0-36.0); MEAN CORPUSCULAR VOLUME 114 FL (80-99); MEAN PLATELET VOLUME 8.4 FL (6.5-10.1); PLATELET COUNT 235 K/UL (150-450); RED BLOOD COUNT 4.23 M/UL (4.70-6.10); RED CELL DISTRIBUTION WIDTH 12.6 % (11.6-14.8); WHITE BLOOD COUNT 6.1 K/UL (4.8-10.8)
[2016-10-24 08:16] LABS: ALANINE AMINOTRANSFERASE 31 U/L (3-41); ALBUMIN/GLOBULIN RATIO 0.7 (1.0-2.7); ANION GAP 15 (5-15); ASPARTATE AMINO TRANSFERASE 41 U/L (5-40); CALCIUM 9.7 mg/dL (8.6-10.2); CARBON DIOXIDE 27 mEQ/L (20-30); CHLORIDE 101 mEQ/L (98-107); CREATININE 0.9 mg/dL (0.7-1.2); GLOMERULAR FILTRATION RATE > 60 mL/min (>60); HEMOLYSIS 0; POTASSIUM 4.3 mEQ/L (3.4-4.9); SODIUM 143 mEQ/L (135-145); TOTAL PROTEIN 7.3 g/dL (6.6-8.7)
[2016-10-24 08:30] LABS: PHOSPHORUS 2.2 mg/dL (2.5-4.8)
[2016-10-24 08:42] VITALS: BP 157/105
[2016-10-24 09:37] LABS: BAND NEUTROPHILS % (MANUAL) 2 % (0-8); BASOPHILS % (MANUAL) 0 % (0-2); EOSINOPHILS % (MANUAL) 0 % (0-3); LYMPHOCYTES % (MANUAL) 28 % (20-45); NEUTROPHILS % (MANUAL) 59 % (45-75); PLATELET ESTIMATE ADEQUATE; PLATELET MORPHOLOGY NORMAL; TOTAL CELLS COUNTED 100
[2016-10-24 09:38] LABS: MACROCYTES 1+
[2016-10-24] MEDS: Tamsulosin 0.4mg cap ORAL SCH (10:00)
--- NOTE | 2016-10-24 10:14 | Infectious Diseases Prog Note ---
Assessment/Plan Assessment/Plan ASSESSMENT: 61 y/o male with: // Acute perforated appendicitis / periappendiceal abscess / peritonitis - SP ex-lap drainage of periappendiceal abscess, appendectomy 10/21 - WCx qS- PSA, alpha strep - CT A/P: acute appendicitis with perforation, small adjacent gas collection which may involving to abscess, small amount of pneumoperitoneum and free fluid. // HIV(+), on cART ( combivir, viracept ) - unknown CD4 // h/o HCV - LFTs WNL // Leukocytosis - resolved, afebrile // BRENDAN - improved // DM2 - HbA1c 6.2% // NKDA // Full Code PLAN: - continue zosyn d# / . Ok to complete course with PO cipro, flagyl at discharge - continue cART ( combivir, viracept ), f/u with regular HIV provider at discharge - f/u cultures - monitor CBC, temperatures - monitor BMP Subjective Allergies: Coded Allergies: No Known Allergies (Unverified , 02/15/13) Subjective remains afebrile. pain controlled Objective Vital Signs Last 24 Hour Vital Signs Date Time Temp Pulse Resp B/P Pulse Ox O2 Delivery O2 Flow Rate FiO2 10/24/16 08:42 98.1 86 16 157/105 95 Room Air 10/24/16 04:00 97.2 86 20 161/109 93 Nasal Cannula 10/24/16 00:00 98.1 82 20 148/99 95 Nasal Cannula 2.0 10/23/16 20:00 97.2 82 20 148/90 97 Room Air 10/23/16 17:19 98.1 10/23/16 16:00 97.9 81 20 140/74 98 Room Air 10/23/16 12:00 98.1 81 18 152/92 98 Room Air Height (Feet): 5 Height (Inches): 8.00 Weight (Pounds): 180 General Appearance: no acute distress Respiratory/Chest: no respiratory distress Cardiovascular: normal rate, regular rhythm Abdomen: normal bowel sounds, soft, non tender, non distended Microbiology Date/Time Source Procedure Growth Status 10/21/16 13:45 Nasal Nares MRSA Culture - Final NO METHICILLIN RESISTANT STAPH AUREUS... Complete 10/21/16 13:45 Rectum VRE Culture - Final NO VANCOMYCIN RESISTANT ENTEROCOCCUS ... Complete Laboratory Tests Test 10/24/16 05:20 White Blood Count 6.1 K/UL (4.8-10.8) Red Blood Count 4.23 M/UL (4.70-6.10) L Hemoglobin 16.7 G/DL (14.2-18.0) Hematocrit 48.4 % (42.0-52.0) Mean Corpuscular Volume 114 FL (80-99) H Mean Corpuscular Hemoglobin 39.5 PG (27.0-31.0) H Mean Corpuscular Hemoglobin Concent 34.6 G/DL (32.0-36.0) Red Cell Distribution Width 12.6 % (11.6-14.8) Platelet Count 235 K/UL (150-450) Mean Platelet Volume 8.4 FL (6.5-10.1) Neutrophils (%) (Auto) % (45.0-75.0) Lymphocytes (%) (Auto) % (20.0-45.0) Monocytes (%) (Auto) % (1.0-10.0) Eosinophils (%) (Auto) % (0.0-3.0) Basophils (%) (Auto) % (0.0-2.0) Differential Total Cells Counted 100 Neutrophils % (Manual) 59 % (45-75) Lymphocytes % (Manual) 28 % (20-45) Monocytes % (Manual) 11 % (1-10) H Eosinophils % (Manual) 0 % (0-3) Basophils % (Manual) 0 % (0-2) Band Neutrophils 2 % (0-8) Platelet Estimate Adequate Platelet Morphology Normal Macrocytosis 1+ Sodium Level 143 mEQ/L (135-145) Potassium Level 4.3 mEQ/L (3.4-4.9) Chloride Level 101 mEQ/L (98-107) Carbon Dioxide Level 27 mEQ/L (20-30) Anion Gap 15 (5-15) Blood Urea Nitrogen 15 mg/dL (7-23) Creatinine 0.9 mg/dL (0.7-1.2) Estimat Glomerular Filtration Rate > 60 mL/min (>60) Glucose Level 132 mg/dL (74-106) H Calcium Level 9.7 mg/dL (8.6-10.2) Phosphorus Level 2.2 mg/dL (2.5-4.8) L Magnesium Level 2.0 mg/dL (1.7-2.5) Total Bilirubin 0.8 mg/dL (0.0-1.2) Aspartate Amino Transf (AST/SGOT) 41 U/L (5-40) H Alanine Aminotransferase (ALT/SGPT) 31 U/L (3-41) Alkaline Phosphatase 81 U/L (40-129) Total Protein 7.3 g/dL (6.6-8.7) Albumin 3.1 g/dL (3.5-5.2) L Globulin 4.2 g/dL Albumin/Globulin Ratio 0.7 (1.0-2.7) L Current Medications Medications (Trade) Dose Ordered Sig/Girish Route PRN Reason Start Time Stop Time Status Last Admin Dose Admin Acetaminophen (Tylenol) 650 mg Q4H PRN ORAL fever 10/21/16 03:15 11/20/16 03:14 Acetaminophen (Tylenol) 650 mg Q4H PRN RECTAL FEVER 10/21/16 05:15 11/20/16 05:14 Acetaminophen 650 mg 650 mg Q4H PRN ORAL Mild Pain (Pain Scale 1-3) 10/21/16 04:15 Al Hydroxide/Mg Hydroxide (Mylanta II) 30 ml Q6H PRN ORAL dyspepsia 10/21/16 03:15 11/20/16 03:14 Dextrose (Dextrose 50%) STAT PRN IV Hypoglycemia 10/21/16 03:15 11/20/16 03:14 Dextrose/ Electrolytes (D5 0.45%NS W/ KCl 20mEq) 1,000 ml @ 125 mls/hr Q8H IV 10/21/16 08:30 11/20/16 08:29 10/24/16 01:38 Diphenhydramine HCl (Benadryl) 25 mg Q6H PRN ORAL Itching/Pruritis 10/21/16 03:15 11/20/16 03:14 Enoxaparin Sodium (Lovenox) 30 mg DAILY SUBQ 10/21/16 09:00 11/20/16 08:59 10/23/16 09:32 Insulin Aspart (NovoLOG) BEFORE MEALS AND HS SUBQ 10/21/16 06:30 11/20/16 06:29 10/24/16 06:02 Ketorolac Tromethamine (Toradol 30mg) 30 mg Q6H PRN IV moderate pian 4-6 10/21/16 03:15 10/26/16 03:14 Metoclopramide HCl (Reglan) 10 mg Q6H PRN IVP Nausea & Vomiting 10/21/16 05:15 11/20/16 05:14 Morphine Sulfate (Morphine Sulfate) 2 mg EVERY 4 HOURS PRN IVP severe Pain (Pain Scale 7-10) 10/21/16 03:15 10/28/16 03:14 10/24/16 05:16 Nitroglycerin (Ntg) 0.4 mg Q5M X 3 DOSES PRN SL Prn Chest Pain 10/21/16 03:15 11/20/16 03:14 Ondansetron HCl (Zofran) 4 mg Q6H PRN IVP Nausea & Vomiting 10/21/16 05:15 11/20/16 05:14 10/23/16 04:40 Patient Own Medication (Patient's Own Med) 1 ea BID ORAL 10/21/16 21:00 11/20/16 20:59 10/23/16 17:08 Patient Own Medication 3 ea 3 ea TID ORAL 10/21/16 21:00 11/20/16 20:59 10/23/16 17:08 Piperacillin Sod/ Tazobactam Sod/ Sodium Chloride (Zosyn/Sodium Chloride 100ml bag) 100 ml @ 25 mls/hr Q8HR@0200,1000,1800 IVPB 10/21/16 19:00 10/28/16 18:59 10/24/16 01:35 Polyethylene Glycol (Miralax) 17 gm HSPRN PRN ORAL Constipation 10/21/16 03:15 11/20/16 03:14 Tamsulosin HCl (Flomax) 0.4 mg DAILY ORAL 10/21/16 09:00 11/20/16 08:59 10/23/16 08:33 Temazepam (Restoril) 15 mg HSPRN PRN ORAL Insomnia 10/21/16 03:15 10/28/16 03:14 YANNICK PARRA Oct 24, 2016 10:14
[2016-10-24] MEDS: COMBIVIR ORAL SCH ×2 (10:55→18:34)
[2016-10-24] MEDS: VIRACEPT ORAL SCH ×3 (10:55→18:33)
[2016-10-24 12:09] VITALS: BP 159/102
[2016-10-24] MEDS: Enoxaparin 30mg Inj SUBQ SCH (14:15)
--- NOTE | 2016-10-24 16:35 | General Surgery Progress Note ---
General Surgery-Progress Note Subjective Procedure Performed exploratory laparotomy , appendectomy and drainage of periappendiceal abscess Symptoms: improved Objective Last 24 Hour Vital Signs Date Time Temp Pulse Resp B/P Pulse Ox O2 Delivery O2 Flow Rate FiO2 10/24/16 12:15 97.9 10/24/16 12:09 98.1 81 16 159/102 95 Room Air 10/24/16 08:42 98.1 86 16 157/105 95 Room Air 10/24/16 04:00 97.2 86 20 161/109 93 Nasal Cannula 10/24/16 00:00 98.1 82 20 148/99 95 Nasal Cannula 2.0 10/23/16 20:00 97.2 82 20 148/90 97 Room Air I&O Intake and Output 10/23/16 10/24/16 19:00 07:00 Intake Total 750 ml 100 ml Output Total 885 ml 710 ml Balance -135 ml -610 ml IV Total 750 ml 100 ml Output Urine Total 650 ml 700 ml Drainage Total 235 ml 10 ml # Voids 2 6 Respiratory: clear Abdomen: soft, flat, tenderness, present bowel sounds Extremities: no edema, no tenderness Laboratory Tests Test 10/24/16 05:20 White Blood Count 6.1 K/UL (4.8-10.8) Red Blood Count 4.23 M/UL (4.70-6.10) L Hemoglobin 16.7 G/DL (14.2-18.0) Hematocrit 48.4 % (42.0-52.0) Mean Corpuscular Volume 114 FL (80-99) H Mean Corpuscular Hemoglobin 39.5 PG (27.0-31.0) H Mean Corpuscular Hemoglobin Concent 34.6 G/DL (32.0-36.0) Red Cell Distribution Width 12.6 % (11.6-14.8) Platelet Count 235 K/UL (150-450) Mean Platelet Volume 8.4 FL (6.5-10.1) Neutrophils (%) (Auto) % (45.0-75.0) Lymphocytes (%) (Auto) % (20.0-45.0) Monocytes (%) (Auto) % (1.0-10.0) Eosinophils (%) (Auto) % (0.0-3.0) Basophils (%) (Auto) % (0.0-2.0) Differential Total Cells Counted 100 Neutrophils % (Manual) 59 % (45-75) Lymphocytes % (Manual) 28 % (20-45) Monocytes % (Manual) 11 % (1-10) H Eosinophils % (Manual) 0 % (0-3) Basophils % (Manual) 0 % (0-2) Band Neutrophils 2 % (0-8) Platelet Estimate Adequate Platelet Morphology Normal Macrocytosis 1+ Sodium Level 143 mEQ/L (135-145) Potassium Level 4.3 mEQ/L (3.4-4.9) Chloride Level 101 mEQ/L (98-107) Carbon Dioxide Level 27 mEQ/L (20-30) Anion Gap 15 (5-15) Blood Urea Nitrogen 15 mg/dL (7-23) Creatinine 0.9 mg/dL (0.7-1.2) Estimat Glomerular Filtration Rate > 60 mL/min (>60) Glucose Level 132 mg/dL (74-106) H Calcium Level 9.7 mg/dL (8.6-10.2) Phosphorus Level 2.2 mg/dL (2.5-4.8) L Magnesium Level 2.0 mg/dL (1.7-2.5) Total Bilirubin 0.8 mg/dL (0.0-1.2) Aspartate Amino Transf (AST/SGOT) 41 U/L (5-40) H Alanine Aminotransferase (ALT/SGPT) 31 U/L (3-41) Alkaline Phosphatase 81 U/L (40-129) Total Protein 7.3 g/dL (6.6-8.7) Albumin 3.1 g/dL (3.5-5.2) L Globulin 4.2 g/dL Albumin/Globulin Ratio 0.7 (1.0-2.7) L Assessment Post-op Diagnosis acute perforated appendicitis with generalised peritonitis Plan Additional Comments clear liquid diet WENDY MELTON Oct 24, 2016 16:35
[2016-10-24 16:49] VITALS: BP 160/101
--- NOTE | 2016-10-24 19:04 | Pulmonology Progress Note ---
Assessment/Plan Problems: (1) Perforated appendicitis (2) HTN (hypertension) (3) HIV disease Assessment/Plan IV fluids Iv antibiotic ESTEVAN draining still npo check labs daily f/u cultures of abdominal fluid Subjective ROS Limited/Unobtainable: Yes Gastrointestinal/Abdominal: Reports: bloating, blood in stool, constipation Musculoskeletal: Reports: pain, stiffness, swelling Allergies: Coded Allergies: No Known Allergies (Unverified , 02/15/13) Objective Last 24 Hour Vital Signs Date Time Temp Pulse Resp B/P Pulse Ox O2 Delivery O2 Flow Rate FiO2 10/24/16 17:40 99.5 10/24/16 16:49 99.5 89 15 160/101 96 Room Air 10/24/16 12:09 98.1 81 16 159/102 95 Room Air 10/24/16 08:42 98.1 86 16 157/105 95 Room Air 10/24/16 04:00 97.2 86 20 161/109 93 Nasal Cannula 10/24/16 00:00 98.1 82 20 148/99 95 Nasal Cannula 2.0 10/23/16 20:00 97.2 82 20 148/90 97 Room Air Intake and Output 10/23/16 10/24/16 19:00 07:00 Intake Total 750 ml 100 ml Output Total 885 ml 710 ml Balance -135 ml -610 ml IV Total 750 ml 100 ml Output Urine Total 650 ml 700 ml Drainage Total 235 ml 10 ml # Voids 2 6 General Appearance: no acute distress HEENT: normocephalic, atraumatic, PERRL Respiratory/Chest: chest wall non-tender, decreased breath sounds, accessory muscle use Cardiovascular: normal peripheral pulses, normal rate, regular rhythm Abdomen: hyperactive bowel sounds, distended, guarding, tender, rebound tenderness Genitourinary: normal external genitalia Extremities: no cyanosis Skin: no rash, no lesions 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, no motor/sensory deficits Laboratory Tests 10/24/16 05:20: White Blood Count 6.1, Red Blood Count 4.23L, Hemoglobin 16.7, Hematocrit 48.4, Mean Corpuscular Volume 114H, Mean Corpuscular Hemoglobin 39.5H, Mean Corpuscular Hemoglobin Concent 34.6, Red Cell Distribution Width 12.6, Platelet Count 235, Mean Platelet Volume 8.4, Neutrophils (%) (Auto) , Lymphocytes (%) ( Auto) , Monocytes (%) (Auto) , Eosinophils (%) (Auto) , Basophils (%) (Auto) , Differential Total Cells Counted 100, Neutrophils % (Manual) 59, Lymphocytes % ( Manual) 28, Monocytes % (Manual) 11H, Eosinophils % (Manual) 0, Basophils % ( Manual) 0, Band Neutrophils 2, Platelet Estimate Adequate, Platelet Morphology Normal, Macrocytosis 1+, Sodium Level 143, Potassium Level 4.3, Chloride Level 101, Carbon Dioxide Level 27, Anion Gap 15, Blood Urea Nitrogen 15, Creatinine 0.9, Estimat Glomerular Filtration Rate > 60, Glucose Level 132H, Calcium Level 9.7, Phosphorus Level 2.2L, Magnesium Level 2.0, Total Bilirubin 0.8, Aspartate Amino Transf (AST/SGOT) 41H, Alanine Aminotransferase (ALT/SGPT) 31, Alkaline Phosphatase 81, Total Protein 7.3, Albumin 3.1L, Globulin 4.2, Albumin/Globulin Ratio 0.7L Current Medications Medications (Trade) Dose Ordered Sig/Girish Route PRN Reason Start Time Stop Time Status Last Admin Dose Admin Acetaminophen (Tylenol) 650 mg Q4H PRN ORAL fever 10/21/16 03:15 11/20/16 03:14 Acetaminophen (Tylenol) 650 mg Q4H PRN RECTAL FEVER 10/21/16 05:15 11/20/16 05:14 Acetaminophen 650 mg 650 mg Q4H PRN ORAL Mild Pain (Pain Scale 1-3) 10/21/16 04:15 Al Hydroxide/Mg Hydroxide (Mylanta II) 30 ml Q6H PRN ORAL dyspepsia 10/21/16 03:15 11/20/16 03:14 Dextrose (Dextrose 50%) STAT PRN IV Hypoglycemia 10/21/16 03:15 11/20/16 03:14 Dextrose/ Electrolytes (D5 0.45%NS W/ KCl 20mEq) 1,000 ml @ 125 mls/hr Q8H IV 10/21/16 08:30 11/20/16 08:29 10/24/16 17:10 Diphenhydramine HCl (Benadryl) 25 mg Q6H PRN ORAL Itching/Pruritis 10/21/16 03:15 11/20/16 03:14 Enoxaparin Sodium (Lovenox) 30 mg DAILY SUBQ 10/21/16 09:00 11/20/16 08:59 10/24/16 14:15 Insulin Aspart (NovoLOG) BEFORE MEALS AND HS SUBQ 10/21/16 06:30 11/20/16 06:29 10/24/16 06:02 Ketorolac Tromethamine (Toradol 30mg) 30 mg Q6H PRN IV moderate pian 4-6 10/21/16 03:15 10/26/16 03:14 Metoclopramide HCl (Reglan) 10 mg Q6H PRN IVP Nausea & Vomiting 10/21/16 05:15 11/20/16 05:14 Morphine Sulfate (Morphine Sulfate) 2 mg EVERY 4 HOURS PRN IVP severe Pain (Pain Scale 7-10) 10/21/16 03:15 10/28/16 03:14 10/24/16 17:10 Nitroglycerin (Ntg) 0.4 mg Q5M X 3 DOSES PRN SL Prn Chest Pain 10/21/16 03:15 11/20/16 03:14 Ondansetron HCl (Zofran) 4 mg Q6H PRN IVP Nausea & Vomiting 10/21/16 05:15 11/20/16 05:14 10/23/16 04:40 Patient Own Medication (Patient's Own Med) 1 ea BID ORAL 10/21/16 21:00 11/20/16 20:59 10/24/16 18:34 Patient Own Medication 3 ea 3 ea TID ORAL 10/21/16 21:00 11/20/16 20:59 10/24/16 18:33 Piperacillin Sod/ Tazobactam Sod/ Sodium Chloride (Zosyn/Sodium Chloride 100ml bag) 100 ml @ 25 mls/hr Q8HR@0200,1000,1800 IVPB 10/21/16 19:00 10/28/16 18:59 10/24/16 18:34 Polyethylene Glycol (Miralax) 17 gm HSPRN PRN ORAL Constipation 10/21/16 03:15 11/20/16 03:14 Tamsulosin HCl (Flomax) 0.4 mg DAILY ORAL 10/21/16 09:00 11/20/16 08:59 10/24/16 10:00 Temazepam (Restoril) 15 mg HSPRN PRN ORAL Insomnia 10/21/16 03:15 10/28/16 03:14 BIENVENIDO MARCUM Oct 24, 2016 19:04
[2016-10-24 20:00] VITALS: BP 155/104
[2016-10-25] MEDS: D5 1/2NS w/KCl 20mEq 1,000 ML IV SCH ×2 (00:37→09:09)
[2016-10-25 01:00] VITALS: BP 156/100
[2016-10-25 04:00] VITALS: BP 138/92
[2016-10-25] MEDS: NovoLOG Insulin Flexpen SUBQ SCH ×3 (06:08→17:32)
[2016-10-25 07:40] LABS: MEAN CORPUSCULAR HEMOGLOBIN 38.8 PG (27.0-31.0); MEAN CORPUSCULAR HGB CONC 34.4 G/DL (32.0-36.0); MEAN CORPUSCULAR VOLUME 113 FL (80-99); MEAN PLATELET VOLUME 8.2 FL (6.5-10.1); PLATELET COUNT 246 K/UL (150-450); RED BLOOD COUNT 4.24 M/UL (4.70-6.10); WHITE BLOOD COUNT 4.8 K/UL (4.8-10.8)
[2016-10-25 07:58] LABS: ANION GAP 14 (5-15); CARBON DIOXIDE 26 mEQ/L (20-30); CHLORIDE 98 mEQ/L (98-107); CREATININE 0.8 mg/dL (0.7-1.2); GLOMERULAR FILTRATION RATE > 60 mL/min (>60); HEMOLYSIS 8; POTASSIUM 4.1 mEQ/L (3.4-4.9); SODIUM 138 mEQ/L (135-145)
[2016-10-25 07:59] VITALS: BP 138/94
[2016-10-25] MEDS: Tamsulosin 0.4mg cap ORAL SCH (09:09)
[2016-10-25] MEDS: COMBIVIR ORAL SCH (09:10)
[2016-10-25] MEDS: VIRACEPT ORAL SCH ×2 (09:10→12:38)
[2016-10-25] MEDS: Enoxaparin 30mg Inj SUBQ SCH (10:05)
[2016-10-25 11:11] LABS: ANISOCYTOSIS 1+; BAND NEUTROPHILS % (MANUAL) 0 % (0-8); BASOPHILS % (MANUAL) 0 % (0-2); EOSINOPHILS % (MANUAL) 2 % (0-3); LYMPHOCYTES % (MANUAL) 34 % (20-45); MACROCYTES 2+; NEUTROPHILS % (MANUAL) 51 % (45-75); PLATELET ESTIMATE ADEQUATE; PLATELET MORPHOLOGY NORMAL; TOTAL CELLS COUNTED 100
[2016-10-25 11:47] VITALS: BP 144/94
[2016-10-25] MEDS: Morphine Sulfate 2mg/ml Inj IVP PRN (14:34)
--- NOTE | 2016-10-25 15:20 | Pulmonology Progress Note ---
Assessment/Plan Problems: (1) Perforated appendicitis (2) HTN (hypertension) (3) HIV disease Assessment/Plan IV fluids Iv antibiotic ESTEVAN draining still npo check labs daily f/u cultures of abdominal fluid Subjective ROS Limited/Unobtainable: Yes HEENT: Repors: visual change Gastrointestinal/Abdominal: Reports: bloating, blood in stool, diarrhea, nausea , vomiting Musculoskeletal: Reports: pain, swelling Allergies: Coded Allergies: No Known Allergies (Unverified , 02/15/13) Objective Last 24 Hour Vital Signs Date Time Temp Pulse Resp B/P Pulse Ox O2 Delivery O2 Flow Rate FiO2 10/25/16 11:47 98.2 76 20 144/94 97 Room Air 10/25/16 07:59 98.1 76 20 138/94 97 Room Air 10/25/16 04:00 97.7 77 18 138/92 96 Room Air 10/25/16 01:00 98.1 82 18 156/100 93 Room Air 10/25/16 00:36 155/104 10/24/16 20:00 98.2 83 18 155/104 96 Room Air 10/24/16 17:40 99.5 10/24/16 16:49 99.5 89 15 160/101 96 Room Air Intake and Output 10/24/16 10/25/16 19:00 07:00 Intake Total 400 ml Output Total 700 ml Balance -700 ml 400 ml IV Total 400 ml Output Urine Total 700 ml # Voids 1 # Bowel Movements 1 General Appearance: no acute distress HEENT: normocephalic, atraumatic, anicteric, PERRL Respiratory/Chest: chest wall non-tender, decreased breath sounds, accessory muscle use Cardiovascular: normal peripheral pulses, normal rate, regular rhythm Abdomen: absent bowel sounds, distended, guarding, tender, rebound tenderness, mass Genitourinary: normal external genitalia Extremities: no cyanosis Skin: rash, lesions 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, no motor/sensory deficits Laboratory Tests 10/25/16 05:50: White Blood Count 4.8, Red Blood Count 4.24L, Hemoglobin 16.4, Hematocrit 47.7, Mean Corpuscular Volume 113H, Mean Corpuscular Hemoglobin 38.8H, Mean Corpuscular Hemoglobin Concent 34.4, Red Cell Distribution Width 12.0, Platelet Count 246, Mean Platelet Volume 8.2, Neutrophils (%) (Auto) , Lymphocytes (%) ( Auto) , Monocytes (%) (Auto) , Eosinophils (%) (Auto) , Basophils (%) (Auto) , Differential Total Cells Counted 100, Neutrophils % (Manual) 51, Lymphocytes % ( Manual) 34, Monocytes % (Manual) 13H, Eosinophils % (Manual) 2, Basophils % ( Manual) 0, Band Neutrophils 0, Platelet Estimate Adequate, Platelet Morphology Normal, Anisocytosis 1+, Macrocytosis 2+, Sodium Level 138, Potassium Level 4.1 , Chloride Level 98, Carbon Dioxide Level 26, Anion Gap 14, Blood Urea Nitrogen 16, Creatinine 0.8, Estimat Glomerular Filtration Rate > 60, Glucose Level 191H , Calcium Level 9.0 Current Medications Medications (Trade) Dose Ordered Sig/Girish Route PRN Reason Start Time Stop Time Status Last Admin Dose Admin Acetaminophen (Tylenol) 650 mg Q4H PRN ORAL fever 10/21/16 03:15 11/20/16 03:14 Acetaminophen (Tylenol) 650 mg Q4H PRN RECTAL FEVER 10/21/16 05:15 11/20/16 05:14 Acetaminophen 650 mg 650 mg Q4H PRN ORAL Mild Pain (Pain Scale 1-3) 10/21/16 04:15 Al Hydroxide/Mg Hydroxide (Mylanta II) 30 ml Q6H PRN ORAL dyspepsia 10/21/16 03:15 11/20/16 03:14 Clonidine HCl (Catapres) 0.1 mg EVERY 6 HOURS PRN ORAL SBP > 160 10/24/16 20:45 11/23/16 20:44 10/25/16 00:36 Dextrose (Dextrose 50%) STAT PRN IV Hypoglycemia 10/21/16 03:15 11/20/16 03:14 Dextrose/ Electrolytes (D5 0.45%NS W/ KCl 20mEq) 1,000 ml @ 125 mls/hr Q8H IV 10/21/16 08:30 11/20/16 08:29 10/25/16 09:09 Diphenhydramine HCl (Benadryl) 25 mg Q6H PRN ORAL Itching/Pruritis 10/21/16 03:15 11/20/16 03:14 Enoxaparin Sodium (Lovenox) 30 mg DAILY SUBQ 10/21/16 09:00 11/20/16 08:59 10/25/16 10:05 Insulin Aspart (NovoLOG) BEFORE MEALS AND HS SUBQ 10/21/16 06:30 11/20/16 06:29 10/25/16 12:39 Ketorolac Tromethamine (Toradol 30mg) 30 mg Q6H PRN IV moderate pian 4-6 10/21/16 03:15 10/26/16 03:14 Metoclopramide HCl (Reglan) 10 mg Q6H PRN IVP Nausea & Vomiting 10/21/16 05:15 11/20/16 05:14 Morphine Sulfate (Morphine Sulfate) 2 mg EVERY 4 HOURS PRN IVP severe Pain (Pain Scale 7-10) 10/21/16 03:15 10/28/16 03:14 10/25/16 14:34 Nitroglycerin (Ntg) 0.4 mg Q5M X 3 DOSES PRN SL Prn Chest Pain 10/21/16 03:15 11/20/16 03:14 Ondansetron HCl (Zofran) 4 mg Q6H PRN IVP Nausea & Vomiting 10/21/16 05:15 11/20/16 05:14 10/23/16 04:40 Patient Own Medication (Patient's Own Med) 1 ea BID ORAL 10/21/16 21:00 11/20/16 20:59 10/25/16 09:10 Patient Own Medication 3 ea 3 ea TID ORAL 10/21/16 21:00 11/20/16 20:59 10/25/16 12:38 Piperacillin Sod/ Tazobactam Sod/ Sodium Chloride (Zosyn/Sodium Chloride 100ml bag) 100 ml @ 25 mls/hr Q8HR@0200,1000,1800 IVPB 10/21/16 19:00 10/28/16 18:59 10/25/16 09:18 Polyethylene Glycol (Miralax) 17 gm HSPRN PRN ORAL Constipation 10/21/16 03:15 11/20/16 03:14 Tamsulosin HCl (Flomax) 0.4 mg DAILY ORAL 10/21/16 09:00 11/20/16 08:59 10/25/16 09:09 Temazepam (Restoril) 15 mg HSPRN PRN ORAL Insomnia 10/21/16 03:15 10/28/16 03:14 BIENVENIDO MARCUM Oct 25, 2016 15:20
--- NOTE | 2016-10-25 15:57 | General Surgery Progress Note ---
General Surgery-Progress Note Subjective Procedure Performed exploratory laparotomy , appendectomy and drainage of periappendiceal abscess Symptoms: improved, BM Objective Last 24 Hour Vital Signs Date Time Temp Pulse Resp B/P Pulse Ox O2 Delivery O2 Flow Rate FiO2 10/25/16 11:47 98.2 76 20 144/94 97 Room Air 10/25/16 07:59 98.1 76 20 138/94 97 Room Air 10/25/16 04:00 97.7 77 18 138/92 96 Room Air 10/25/16 01:00 98.1 82 18 156/100 93 Room Air 10/25/16 00:36 155/104 10/24/16 20:00 98.2 83 18 155/104 96 Room Air 10/24/16 17:40 99.5 10/24/16 16:49 99.5 89 15 160/101 96 Room Air I&O Intake and Output 10/24/16 10/25/16 19:00 07:00 Intake Total 400 ml Output Total 700 ml Balance -700 ml 400 ml IV Total 400 ml Output Urine Total 700 ml # Voids 1 # Bowel Movements 1 Dressing: dry Drains: sherron Respiratory: clear Abdomen: soft, flat, tenderness, present bowel sounds Extremities: no edema, no tenderness Laboratory Tests Test 10/25/16 05:50 White Blood Count 4.8 K/UL (4.8-10.8) Red Blood Count 4.24 M/UL (4.70-6.10) L Hemoglobin 16.4 G/DL (14.2-18.0) Hematocrit 47.7 % (42.0-52.0) Mean Corpuscular Volume 113 FL (80-99) H Mean Corpuscular Hemoglobin 38.8 PG (27.0-31.0) H Mean Corpuscular Hemoglobin Concent 34.4 G/DL (32.0-36.0) Red Cell Distribution Width 12.0 % (11.6-14.8) Platelet Count 246 K/UL (150-450) Mean Platelet Volume 8.2 FL (6.5-10.1) Neutrophils (%) (Auto) % (45.0-75.0) Lymphocytes (%) (Auto) % (20.0-45.0) Monocytes (%) (Auto) % (1.0-10.0) Eosinophils (%) (Auto) % (0.0-3.0) Basophils (%) (Auto) % (0.0-2.0) Differential Total Cells Counted 100 Neutrophils % (Manual) 51 % (45-75) Lymphocytes % (Manual) 34 % (20-45) Monocytes % (Manual) 13 % (1-10) H Eosinophils % (Manual) 2 % (0-3) Basophils % (Manual) 0 % (0-2) Band Neutrophils 0 % (0-8) Platelet Estimate Adequate Platelet Morphology Normal Anisocytosis 1+ Macrocytosis 2+ Sodium Level 138 mEQ/L (135-145) Potassium Level 4.1 mEQ/L (3.4-4.9) Chloride Level 98 mEQ/L (98-107) Carbon Dioxide Level 26 mEQ/L (20-30) Anion Gap 14 (5-15) Blood Urea Nitrogen 16 mg/dL (7-23) Creatinine 0.8 mg/dL (0.7-1.2) Estimat Glomerular Filtration Rate > 60 mL/min (>60) Glucose Level 191 mg/dL (74-106) H Calcium Level 9.0 mg/dL (8.6-10.2) Assessment Post-op Diagnosis acute perforated appendicitis with generalised peritonitis Plan Additional Comments continue IV Antibiotics WENDY MELTON Oct 25, 2016 15:57
[2016-10-25 16:00] VITALS: BP 158/104
[2016-10-25] MEDS ORDERED: traMADol 50mg tab ORAL PRN (16:00)
--- NOTE | 2016-10-25 16:34 | Infectious Diseases Prog Note ---
Assessment/Plan Assessment/Plan ASSESSMENT: 61 y/o male with: // Acute perforated appendicitis / periappendiceal abscess / peritonitis - SP ex-lap drainage of periappendiceal abscess, appendectomy 10/21 - WCx qS- PSA, S.viridans - CT A/P: acute appendicitis with perforation, small adjacent gas collection which may involving to abscess, small amount of pneumoperitoneum and free fluid. // HIV(+), on cART ( combivir, viracept ) - unknown CD4 // h/o HCV - LFTs WNL // Leukocytosis - resolved, afebrile // BRENDAN - improved // DM2 - HbA1c 6.2% // NKDA // Full Code PLAN: - continue zosyn d# / . Ok to complete course with PO cipro, flagyl at discharge - continue cART ( combivir, viracept ), f/u with regular HIV provider at discharge - monitor CBC, temperatures, re-culture if acute change - monitor BMP Subjective Allergies: Coded Allergies: No Known Allergies (Unverified , 02/15/13) Subjective remains afebrile. pain controlled Objective Vital Signs Last 24 Hour Vital Signs Date Time Temp Pulse Resp B/P Pulse Ox O2 Delivery O2 Flow Rate FiO2 10/25/16 16:00 97.7 81 18 158/104 Room Air 10/25/16 11:47 98.2 76 20 144/94 97 Room Air 10/25/16 07:59 98.1 76 20 138/94 97 Room Air 10/25/16 04:00 97.7 77 18 138/92 96 Room Air 10/25/16 01:00 98.1 82 18 156/100 93 Room Air 10/25/16 00:36 155/104 10/24/16 20:00 98.2 83 18 155/104 96 Room Air 10/24/16 17:40 99.5 10/24/16 16:49 99.5 89 15 160/101 96 Room Air Height (Feet): 5 Height (Inches): 8.00 Weight (Pounds): 180 General Appearance: no acute distress Respiratory/Chest: no respiratory distress Cardiovascular: normal rate, regular rhythm Abdomen: normal bowel sounds, soft, non tender, non distended Laboratory Tests Test 10/25/16 05:50 White Blood Count 4.8 K/UL (4.8-10.8) Red Blood Count 4.24 M/UL (4.70-6.10) L Hemoglobin 16.4 G/DL (14.2-18.0) Hematocrit 47.7 % (42.0-52.0) Mean Corpuscular Volume 113 FL (80-99) H Mean Corpuscular Hemoglobin 38.8 PG (27.0-31.0) H Mean Corpuscular Hemoglobin Concent 34.4 G/DL (32.0-36.0) Red Cell Distribution Width 12.0 % (11.6-14.8) Platelet Count 246 K/UL (150-450) Mean Platelet Volume 8.2 FL (6.5-10.1) Neutrophils (%) (Auto) % (45.0-75.0) Lymphocytes (%) (Auto) % (20.0-45.0) Monocytes (%) (Auto) % (1.0-10.0) Eosinophils (%) (Auto) % (0.0-3.0) Basophils (%) (Auto) % (0.0-2.0) Differential Total Cells Counted 100 Neutrophils % (Manual) 51 % (45-75) Lymphocytes % (Manual) 34 % (20-45) Monocytes % (Manual) 13 % (1-10) H Eosinophils % (Manual) 2 % (0-3) Basophils % (Manual) 0 % (0-2) Band Neutrophils 0 % (0-8) Platelet Estimate Adequate Platelet Morphology Normal Anisocytosis 1+ Macrocytosis 2+ Sodium Level 138 mEQ/L (135-145) Potassium Level 4.1 mEQ/L (3.4-4.9) Chloride Level 98 mEQ/L (98-107) Carbon Dioxide Level 26 mEQ/L (20-30) Anion Gap 14 (5-15) Blood Urea Nitrogen 16 mg/dL (7-23) Creatinine 0.8 mg/dL (0.7-1.2) Estimat Glomerular Filtration Rate > 60 mL/min (>60) Glucose Level 191 mg/dL (74-106) H Calcium Level 9.0 mg/dL (8.6-10.2) Current Medications Medications (Trade) Dose Ordered Sig/Girish Route PRN Reason Start Time Stop Time Status Last Admin Dose Admin Acetaminophen (Tylenol) 650 mg Q4H PRN ORAL fever 10/21/16 03:15 11/20/16 03:14 Acetaminophen (Tylenol) 650 mg Q4H PRN ORAL Mild Pain (Pain Scale 1-3) 10/21/16 04:15 Al Hydroxide/Mg Hydroxide (Mylanta II) 30 ml Q6H PRN ORAL dyspepsia 10/21/16 03:15 11/20/16 03:14 Clonidine HCl (Catapres) 0.1 mg EVERY 6 HOURS PRN ORAL SBP > 160 10/24/16 20:45 11/23/16 20:44 10/25/16 00:36 Dextrose (Dextrose 50%) STAT PRN IV Hypoglycemia 10/21/16 03:15 11/20/16 03:14 Dextrose/ Electrolytes (D5 0.45%NS W/ KCl 20mEq) 1,000 ml @ 0 mls/hr Q0M IV 10/25/16 16:00 11/24/16 15:59 UNV Diphenhydramine HCl (Benadryl) 25 mg Q6H PRN ORAL Itching/Pruritis 10/21/16 03:15 11/20/16 03:14 Enoxaparin Sodium (Lovenox) 30 mg DAILY SUBQ 10/21/16 09:00 11/20/16 08:59 10/25/16 10:05 Insulin Aspart (NovoLOG) BEFORE MEALS AND HS SUBQ 10/21/16 06:30 11/20/16 06:29 10/25/16 12:39 Metoclopramide HCl (Reglan) 10 mg Q6H PRN IVP Nausea & Vomiting 10/21/16 05:15 11/20/16 05:14 Nitroglycerin (Ntg) 0.4 mg Q5M X 3 DOSES PRN SL Prn Chest Pain 10/21/16 03:15 11/20/16 03:14 Ondansetron HCl (Zofran) 4 mg Q6H PRN IVP Nausea & Vomiting 10/21/16 05:15 11/20/16 05:14 10/23/16 04:40 Patient Own Medication (Patient's Own Med) 1 ea BID ORAL 10/21/16 21:00 11/20/16 20:59 10/25/16 09:10 Patient Own Medication 3 ea 3 ea TID ORAL 10/21/16 21:00 11/20/16 20:59 1/16/17 12:38 Piperacillin Sod/ Tazobactam Sod/ Sodium Chloride (Zosyn/Sodium Chloride 100ml bag) 100 ml @ 25 mls/hr Q8HR@0200,1000,1800 IVPB 10/21/16 19:00 10/28/16 18:59 10/25/16 09:18 Polyethylene Glycol (Miralax) 17 gm HSPRN PRN ORAL Constipation 10/21/16 03:15 11/20/16 03:14 Senna/Docusate Sodium (Nhi-Colace) 1 ea EVERY 8 HOURS ORAL 10/25/16 22:00 11/24/16 21:59 UNV Tamsulosin HCl (Flomax) 0.4 mg DAILY ORAL 10/21/16 09:00 11/20/16 08:59 10/25/16 09:09 Temazepam (Restoril) 15 mg HSPRN PRN ORAL Insomnia 10/21/16 03:15 10/28/16 03:14 Tramadol HCl 50 mg 50 mg EVERY 4 HOURS PRN ORAL For Pain 10/25/16 16:00 11/01/16 15:59 UNV YANNICK PARRA Oct 25, 2016 16:34
[2016-10-25] MEDS ORDERED: D5 1/2NS w/KCl 20mEq 1,000 ML IV SCH (18:00)
[2016-10-25] MEDS ORDERED: D5%-1/2NS-10 MEQ/100 IV ×2 (18:52→18:53)
[2016-10-25] MEDS ORDERED: [UNRECOGNIZED DRUG - OTHER] IV (18:53)
[2016-10-25] MEDS ORDERED: ZOSYN 3.373.375 GM/1 IVPB (18:55)
[2016-10-25] MEDS ORDERED: TRAMADOL HCL50 MG ORAL (18:58)
[2016-10-25 19:00] VITALS: BP 154/76
[2016-10-25] MEDS ORDERED: PERI-COLACE TA1 EACH PO (19:00)
[2016-10-25] MEDS ORDERED: TAMSULOSIN HCL0.4 MG ORAL (19:01)
[2016-10-25] MEDS ORDERED: REGLAN10 M1 IVP (19:02)
[2016-10-25] MEDS ORDERED: ZOFRAN4 M1 IVP (19:03)
[2016-10-25] MEDS ORDERED: BENADRYL25 M3 PO (19:04)
[2016-10-25] MEDS ORDERED: CATAPRES0.1 MG ORAL (19:05)
[2016-10-25] MEDS ORDERED: TYLENOL325 MG ORAL (19:09)
[2016-10-25] MEDS ORDERED: MIRALAX17 G2 ORAL (19:16)
[2016-10-25] MEDS ORDERED: MYLANTA30 M1 GT (19:18)
[2016-10-25] MEDS ORDERED: RESTORIL15 MG ORAL (19:19)
[2016-10-25] MEDS ORDERED: NITROGLYCERIN0.4 MG SL (19:20)
[2016-10-25] MEDS ORDERED: Pericolace tab ORAL SCH (22:00)
--- NOTE | 2016-10-26 15:25 | Discharge Summary ---
Discharge Summary Hospital Course Date of Admission Oct 21, 2016 at 03:20 Date of Discharge Oct 25, 2016 at 21:05 Admitting Diagnosis pneumonia,perforated appendix HPI Mario Denton is a 61 year old male who was admitted on Oct 21, 2016 at 03:20 for Perforated Appendix,Pneumonia Hospital Course dc summary dictated #[id number] Discharge Medications Continued Medications: Acetaminophen (Tylenol) 325 Mg Tablet 650 MG ORAL Q6H PRN for Fever/Headache/Mild Pain, #30 TAB 0 Refills Al Hydroxide/mg Hydroxide (Mag-Al Liquid) 30 Ml Oral.susp 30 ML GT Q6HR, ML Clonidine Hcl* (Catapres*) 0.1 Mg Tablet 0.1 MG ORAL Q6HR for For High Blood Pressure, TAB Dextrose/Electrolyte Soln (D5%-1/2Ns-KCl 10 Meq/l IV Lottie) 10 Meq/1000 Ml Iv.soln 1000 ML IV, BAG Diphenhydramine HCl (Benadryl) 25 Mg Capsule 25 MG PO Q6HR for Itching, CAP Insulin Aspart* (Novolog*) 100 Unit/1 Ml Insuln.pen 12 SUBQ AC, #1 EA 0 Refills Insulin Detemir (Levemir Flexpen) 100 Unit/1 Ml Insuln.pen 40 SUBQ QHS, #300 UNITS 0 Refills Metoclopramide Hcl* (Reglan*) 10 Mg Tablet 10 MG IVP Q6HR for Nausea & Vomiting, TAB Nitroglycerin (Nitroglycerin) 0.4 Mg Tab.subl 0.4 MG SL, TAB Ondansetron (Zofran) 4 Mg Tablet 4 MG IVP Q6H for Nausea & Vomiting, TAB Ohszmztbijcc-Ggvx-Fkmurrff,Iso (Zosyn 3.375 Gm Pre Mix-Bag) 3.375 Gm/50 Ml Froz.piggy 3.375 GM IVPB EVERY 8 HOURS, BAG Polyethylene Glycol 3350* (Miralax*) 17 Gm Powd.pack 17 GM ORAL HS, PACKET Potassium Chloride/D5-0.45NACL (D5%-1/2NS-Kcl 10 Meq/L Iv Lottie) 10 Meq/1000 Ml Iv.soln 20 MEQ IV Sennosides/Docusate Sodium (Nhi-Colace Tablet) 1 Each Tablet 1 EACH PO Q8HR, TAB Tamsulosin Hcl (Tamsulosin Hcl*) 0.4 Mg Cap.er.24h 0.4 MG ORAL DAILY, CAP Temazepam* (Restoril*) 15 Mg Capsule 15 MG ORAL BEDTIME PRN for Insomnia, CAP Tramadol Hcl* (Ultram*) 50 Mg Tablet 50 MG ORAL Q4HR PRN for For Pain, #30 TAB 0 Refills Discontinued Medications: Potassium Chloride/D5-0.45NACL (D5%-1/2NS-Kcl 10 Meq/L Iv Lottie) 10 Meq/1000 Ml Iv.soln 20 MEQ IV Tamsulosin HCl (Flomax) 0.4 Mg Cap.er.24h 0.4 MG ORAL DAILY, CAP Discharge Condition Upon Discharge: stable Discharge Disposition Patient was discharged to Acute Care Facility(02)- [facility] ( contracted facility) Discharge Diagnoses: Discharge Instructions Discharge Instructions Special Instructions I have been assigned to complete a D/C Summary on this account. I was not involved in the patient management Sugar Buitrago NP (Vanchtein) Oct 26, 2016 15:25
--- NOTE | 2016-10-27 06:27 | Discharge Summary 2 SIG ---
DATE OF ADMISSION: 10/21/2016 DATE OF DISCHARGE: 10/25/2016 REASON FOR HOSPITAL ADMISSION: 61-year-old male with HIV status, presented to the emergency room with right-sided flank and right chest pain for several days. Vital signs were stable, afebrile. Laboratory workup revealed leukocytosis of 15.0. Lactic acid was elevated 3.3. Urinalysis was negative. Nonfocal abdominal exam as per ED doctor. Abdominal pain improved with oral H2 alex and Reglan. Initially, the patient vomited, no hematemesis, bilious emesis. No further vomiting. No fevers, no chills. No urinary complaints. No previous abdominal surgery. He denied sick contacts or foreign travel. He did report some watery diarrhea and intermittent nausea. A CT of the abdomen and pelvis revealed acute perforated appendicitis. The patient was tachycardic. EKG with sinus tachy. No acute changes. Chest x-ray revealed left lung opacity poorly defined, most likely atelectatic, however, focal pneumonia not excluded. Right lower lobe consolidation compatible, but not specific for pneumonia, associated volume loss. The patient also noted to be in acute renal failure with BUN of 24 and creatinine 1.5. Surgery consult was immediately requested and patient was taken by surgeon to operating room. ADMITTING DIAGNOSES: 1. Sepsis. 2. Bilateral pneumonia. 3. Acute perforated appendicitis. 4. Periappendiceal abscess. 5. Peritonitis. 6. Acute tubular necrosis. 7. Human immunodeficiency virus status. HOSPITAL STAY: The patient undergone emergency exploratory laparotomy with drainage of periappendiceal abscess and appendectomy. Course of recovery was uneventful. The patient initially was NPO. The patient was on the IV antibiotic and IV fluids. ID followup. Wound care provided. Leukocytosis trending down and resolved on the day of discharge. Diet was slowly introduced. Pain management provided. Renal parameter down to normal on intravenous fluids. Abdominal fluid revealed Pseudomonas and Strep viridans. Blood culture were negative. Blood pressure was stable. Blood sugar was managed with sliding scale of insulin. Hemoglobin A1c- 6.2. Patient with human immunodeficiency virus status, the patient was on HAART treatment, which was resumed by ID. The patient was progressing well, afebrile, no leukocytosis. Renal parameter down to normal. Able to tolerate diet. Pain controlled. The patient was transferred to contracted facility, [facility], since in need of few more days of IV antibiotics. ID cleared on oral antibiotic once he is discharged home. The patient was stable for transfer. FINAL DIAGNOSES: 1. Sepsis. 2. Acute perforated appendicitis. 3. Periappendiceal abscess. 4. Peritonitis. 5. Hypokalemia, resolved. 6. Status post exploratory laparotomy with drainage of periappendiceal abscess and appendectomy. 7. Acute tubular necrosis likely secondary to dehydration, resolved. 8. Human immunodeficiency virus status. 9. Diabetes out of control, currently stable. DISCHARGE MEDICATIONS: See medication reconciliation list. DISCHARGE INSTRUCTIONS: The patient to follow up with medical doctor at the facility. Mila Gordon M.D. I have been assigned to dictate discharge summary on this account and I was not involved in the patient's management. Sugar Buitrago ([facility]) N.PCarol DR: SAMUEL JOB#: [id number] CC: SACHI
== END 2016-10-25 21:05 | disposition short-term general hospital (02) | DRG 710 ==
LOC: EMR 22:48 → EDBEDREQ 10-21 01:56 → SUR 10-21 03:18 → UNDOFXSDCSVC 10-21 03:18 → 3E 10-21 03:20 → SUR 10-21 07:00 → 4E 10-24 07:42
PROC: 0DTJ0ZZ Resection of Appendix, Open Approach (ICD-10-PCS; principal; 2016-10-21 02:30)
DX: A41.9 Sepsis, unspecified organism (principal); B20 Human immunodeficiency virus [HIV] disease; N17.0 Acute kidney failure with tubular necrosis; K35.2 Acute appendicitis with generalized peritonitis; J18.9 Pneumonia, unspecified organism; D75.1 Secondary polycythemia; E11.65 Type 2 diabetes mellitus with hyperglycemia; E87.6 Hypokalemia; I10 Essential (primary) hypertension; N40.0 Benign prostatic hyperplasia without lower urinary tract symptoms; B19.20 Unspecified viral hepatitis C without hepatic coma
CPT/HCPCS: 36415; 71010; 74176; 76700; 80048; 80053; 81003; 82150; 82550; 82962; 83036; 83605; 83690; 83735; 84100; 84443; 84484; 85007; 85025; 85610; 85730; 87040; 87070; 87075; 87081; 87181; 87205; 93005; 94003; 94150; A4246; J1815; J2250; J2405

== ENCOUNTER 2017-08-01 23:52 | Emergency (ER) | payer MEDICAID ==
[~2017-08-01] VITALS: Ht 175.3 cm; Wt 83.5 kg
[~2017-08-01 23:52] MED LIST changes: +BENADRYL25 M3 PO; +CATAPRES0.1 MG ORAL; +D5%-1/2NS-10 MEQ/100 IV; +MIRALAX17 G2 ORAL; +MYLANTA30 M1 GT; +NITROGLYCERIN0.4 MG SL; +PERI-COLACE TA1 EACH PO; +REGLAN10 M1 IVP; +RESTORIL15 MG ORAL; +TAMSULOSIN HCL0.4 MG ORAL; +TRAMADOL HCL50 MG ORAL; +TYLENOL325 MG ORAL; +ZOFRAN4 M1 IVP; +ZOSYN 3.373.375 GM/1 IVPB; +[UNRECOGNIZED DRUG - OTHER] IV
[2017-08-02] MEDS ORDERED: DESCOVY 200-251 EACH PO (00:05)
[2017-08-02] MEDS ORDERED: TIVICAY50 MG ORAL (00:05)
[2017-08-02] MEDS ORDERED: FOLIC ACID1 MG ORAL (00:05)
[2017-08-02] MEDS ORDERED: VITAMIN B COMP1 EAC2 ORAL (00:05)
[2017-08-02] MEDS ORDERED: LIDOCAINE700 M1 TP (01:17)
[2017-08-02 02:15] VITALS: BP 105/71
--- NOTE | 2017-08-02 07:21 | Emergency Room Report ---
History of Present Illness General Chief Complaint: Pain Source: Patient Present Illness HPI Patient is a 62-year-old male who presented after increased right-sided knee pain. Gradual onset of symptoms. Patient had no recent trauma. He denied any fever. He reported having increased pain to the medial portion of his knee he denied any crepitance. Denied prior history of gout. the patient was noted HIV positive. Allergies: Coded Allergies: No Known Allergies (Unverified , 02/15/13) Patient History Past Medical History: see triage record Reviewed Nursing Documentation: PMH: Agreed, PSxH: Agreed Nursing Documentation-PMH Hx Cardiac Problems: Yes - HIV +, Hep C Hx Diabetes: Yes Hx Cancer: No Hx Gastrointestinal Problems: No Hx Neurological Problems: No Hx Weakness: Yes Hx Fatigue: Yes Review of Systems All Other Systems: negative except mentioned in HPI Physical Exam Vital Signs Date Time Temp Pulse Resp B/P (MAP) Pulse Ox O2 Delivery O2 Flow Rate FiO2 08/01/17 23:58 98.1 96 16 101/68 97 Room Air General Appearance: well appearing, no apparent distress, alert, GCS 15 Head: normocephalic, atraumatic ENT: hearing grossly normal, normal voice Neck: full range of motion, supple Respiratory: no respiratory distress, speaking full sentences Musculoskeletal: no calf tenderness, swelling, other - laxity with medial stress Neurologic: normal inspection, alert, oriented x3, normal gait Psychiatric: mood/affect normal Skin: no rash Medical Decision Making Diagnostic Impression: Primary Impression: Arthritis of knee, right Additional Impression: Sprain of MCL (medial collateral ligament) of knee ER Course Patient presented for knee pain. Differential diagnosis included was not limited to popliteal aneurysm, arthritis, dislocation, ligamentous injury, septic joint among others.Because of complexity of patient's case imaging studies were ordered.The patient is advised to follow up with primary care doctor in 1-2 days. Patient is advised to return if any worsening condition or if any changes in status that are concerning. Last Vital Signs Date Time Temp Pulse Resp B/P (MAP) Pulse Ox O2 Delivery O2 Flow Rate FiO2 08/02/17 02:15 98 16 105/71 99 Room Air 08/02/17 02:15 98.1 Status: improved Disposition: HOME, SELF-CARE Condition: Stable Scripts Lidocaine (Lidocaine) 1 Each Adh..patch 700 MG TP DAILY, #7 PATCH Prov: Deny Alonzo 08/02/17 Patient Instructions: Medial Collateral Knee Ligament Sprain With Phase I Rehab -Sports[facility], Arthritis Deny Alonoz Aug 02, 2017 07:21
--- NOTE | 2017-08-02 12:13 | Diagnostic Imaging Report ---
Indication: PAIN Technique: 3 views of the right knee Comparison: None Findings:There is medial compartmental degenerative joint space narrowing. There are tricompartmental osteophytes. No suprapatellar effusion. No acute fractures. No dislocations. Impression:No acute bony trauma
== END 2017-08-02 02:15 | disposition home or self-care (01) ==
LOC: EMR 08-02 01:00
DX: S83.411A Sprain of medial collateral ligament of right knee, initial encounter (principal); M13.861 Other specified arthritis, right knee; E11.9 Type 2 diabetes mellitus without complications; B19.20 Unspecified viral hepatitis C without hepatic coma; X58.XXXA Exposure to other specified factors, initial encounter; Y92.9 Unspecified place or not applicable
CPT/HCPCS: 99284

== ENCOUNTER 2017-11-21 22:30 | Emergency (ER) | payer MEDICAID ==
[~2017-11-21] VITALS: Ht 175.3 cm; Wt 83.0 kg
[~2017-11-21 22:30] MED LIST changes: +DESCOVY 200-251 EACH PO; +FOLIC ACID1 MG ORAL; +LIDOCAINE700 M1 TP; +TIVICAY50 MG ORAL; +VITAMIN B COMP1 EAC2 ORAL
--- NOTE | 2017-11-21 23:12 | Emergency Room Report ---
History of Present Illness General Chief Complaint: Abdominal Pain Source: Patient Present Illness HPI Patient present with complaints of mid lower abdominal pain He reports that about one year ago he was diagnosed with ruptured appendix Does feel somewhat similar however not as painful Denies any chest pain or shortness of breath denies any vomiting or diarrhea Pain started yesterday Describes it as sharp pain and 5/10 Denies any dysuria frequency denies any flank pain Allergies: Coded Allergies: No Known Allergies (Unverified , 02/15/13) Patient History Past Medical History: see triage record Pertinent Family History: none Reviewed Nursing Documentation: PMH: Agreed, PSxH: Agreed Nursing Documentation-PMH Hx Cardiac Problems: Yes - HIV +, Hep C Hx Diabetes: Yes Hx Cancer: No Hx Gastrointestinal Problems: No Hx Neurological Problems: No Hx Weakness: Yes Hx Fatigue: Yes Review of Systems All Other Systems: negative except mentioned in HPI Physical Exam Vital Signs Date Time Temp Pulse Resp B/P (MAP) Pulse Ox O2 Delivery O2 Flow Rate FiO2 11/21/17 22:32 97.9 104 18 142/94 97 Room Air 97.9 Sp02 EP Interpretation: reviewed, normal General Appearance: well appearing, no apparent distress Head: normocephalic, atraumatic Eyes: bilateral eye PERRL, bilateral eye EOMI ENT: hearing grossly normal, normal pharynx, TMs + canals normal, uvula midline Neck: full range of motion, supple, no meningismus, no bony tend Respiratory: lungs clear, normal breath sounds, no rhonchi, no respiratory distress, no retraction, no accessory muscle use Cardiovascular #1: normal peripheral pulses, regular rate, rhythm, no edema, no gallop, no JVD, no murmur Gastrointestinal: normal bowel sounds, soft, no mass, no organomegaly, non- distended, no guarding, no hernia, no pulsatile mass, no rebound, other - Mid lower abdominal surgical scar, tender in the periumbilical region, no obvious rebound Genitourinary: no CVA tenderness Musculoskeletal: normal inspection Neurologic: oriented x3, responsive, porcelain enameler III-XII nml as tested, motor strength/ tone normal, sensory intact Psychiatric: mood/affect normal Skin: normal color, no rash, warm/dry, palpation normal Lymphatic: normal inspection, no adenopathy Medical Decision Making Diagnostic Impression: Primary Impression: Abdominal pain ER Course With the history exam and presentation, multiple differentials considered, including but not limited to appendicitis, gastritis, cholecystitis, diverticulitis Patient's blood work is normal Patient's CAT scan showed evidence of gallstones Does also report a some inflammation appearance around the pancreas however correlation with lipase is normal patient's discomfort is also mid abdominal and essentially bilateral Patient has been ambulatory in the emergency room appears otherwise comfortable On reevaluation however he reports that he still has some discomfort I did offer observation and gastroenterology followup in the morning However the patient reports that he will be at home and see how the symptom improves if he feels worse and he will return to the emergency room Patient also has followup with primary physician in 7 days Labs Test 11/21/17 23:18 11/21/17 23:21 White Blood Count 6.6 K/UL (4.8-10.8) Red Blood Count 5.58 M/UL (4.70-6.10) Hemoglobin 18.6 G/DL (14.2-18.0) Hematocrit 52.6 % (42.0-52.0) Mean Corpuscular Volume 94 FL (80-99) Mean Corpuscular Hemoglobin 33.3 PG (27.0-31.0) Mean Corpuscular Hemoglobin Concent 35.3 G/DL (32.0-36.0) Red Cell Distribution Width 11.3 % (11.6-14.8) Platelet Count 186 K/UL (150-450) Mean Platelet Volume 8.2 FL (6.5-10.1) Neutrophils (%) (Auto) 61.3 % (45.0-75.0) Lymphocytes (%) (Auto) 29.6 % (20.0-45.0) Monocytes (%) (Auto) 6.8 % (1.0-10.0) Eosinophils (%) (Auto) 0.8 % (0.0-3.0) Basophils (%) (Auto) 1.4 % (0.0-2.0) Sodium Level 135 MMOL/L (136-145) Potassium Level 4.2 MMOL/L (3.5-5.1) Chloride Level 98 MMOL/L (98-107) Carbon Dioxide Level 31 MMOL/L (21-32) Anion Gap 6 mmol/L (5-15) Blood Urea Nitrogen 17 mg/dL (7-18) Creatinine 1.0 MG/DL (0.55-1.30) Estimat Glomerular Filtration Rate > 60 mL/min (>60) Glucose Level 207 MG/DL (74-106) Calcium Level 9.5 MG/DL (8.5-10.1) Total Bilirubin 0.5 MG/DL (0.2-1.0) Aspartate Amino Transf (AST/SGOT) 22 U/L (15-37) Alanine Aminotransferase (ALT/SGPT) 44 U/L (12-78) Alkaline Phosphatase 70 U/L (46-116) Total Protein 8.1 G/DL (6.4-8.2) Albumin 3.6 G/DL (3.4-5.0) Globulin 4.5 g/dL Albumin/Globulin Ratio 0.8 (1.0-2.7) Lipase 218 U/L (73-393) Serum Alcohol < 3 mg/dL Urine Color Yellow Urine Appearance Clear Urine pH 5 (4.5-8.0) Urine Specific [place] 1.015 (1.005-1.035) Urine Protein Negative (NEGATIVE) Urine Glucose (UA) Negative (NEGATIVE) Urine Ketones Negative (NEGATIVE) Urine Occult Blood Negative (NEGATIVE) Urine Nitrite Negative (NEGATIVE) Urine Bilirubin Negative (NEGATIVE) Urine Urobilinogen Normal MG/DL (0.0-1.0) Urine Leukocyte Esterase 1+ (NEGATIVE) Urine RBC 0-2 /HPF (0 - 0) Urine WBC 0-2 /HPF (0 - 0) Urine Squamous Epithelial Cells None /LPF (NONE/OCC) Urine Bacteria None /HPF (NONE) Urine Opiates Screen Negative (NEGATIVE) Urine Barbiturates Screen Negative (NEGATIVE) Phencyclidine (PCP) Screen Negative (NEGATIVE) Urine Amphetamines Screen Negative (NEGATIVE) Urine Benzodiazepines Screen Negative (NEGATIVE) Urine Cocaine Screen Negative (NEGATIVE) Urine Marijuana (THC) Screen Negative (NEGATIVE) Rhythm Strip Diag. Results EP Interpretation: yes Rate: 77 Rhythm: NSR, no PVC's, no ectopy CT/MRI/US Diagnostic Results CT/MRI/US Diagnostic Results : Impression CT abdomen pelvis: Refer to her report for full specific, evidence of some inflammation around the pancreas correlate clinically and with enzymes, evidence of gallstones, no obvious diverticulitis Last Vital Signs Date Time Temp Pulse Resp B/P (MAP) Pulse Ox O2 Delivery O2 Flow Rate FiO2 11/21/17 22:32 97.9 104 18 142/94 97 Room Air 97.9 Status: improved Disposition: HOME, SELF-CARE Condition: Improved Scripts Dicyclomine Hcl* (BENTYL*) 10 Mg Capsule 10 MG ORAL TID, #12 CAP Prov: ASHISH MARTINEZ D.O. 11/22/17 Additional Instructions: Patient is provided with the discharge instructions notified to follow up with primary doctor in the next 2-3 days otherwise return to the er with any worsening symptoms. Please note that this report is being documented using [employer] technology. This can lead to erroneous entry secondary to incorrect interpretation by the dictating instrument. ASHISH MARTINEZ D.O. Nov 21, 2017 23:12
[2017-11-21] MEDS ORDERED: Morphine Sulfate 4mg/ml Inj IVP ONE (23:15)
[2017-11-21 23:44] LABS: BASOPHILS % (AUTO) 1.4 % (0.0-2.0); EOSINOPHILS % (AUTO) 0.8 % (0.0-3.0); HEMATOCRIT 52.6 % (42.0-52.0); LYMPHOCYTES % (AUTO) 29.6 % (20.0-45.0); MEAN CORPUSCULAR VOLUME 94 FL (80-99); MONOCYTES % (AUTO) 6.8 % (1.0-10.0); NEUTROPHILS % (AUTO) 61.3 % (45.0-75.0); PLATELET COUNT 186 K/UL (150-450); RED BLOOD COUNT 5.58 M/UL (4.70-6.10); RED CELL DISTRIBUTION WIDTH 11.3 % (11.6-14.8); WHITE BLOOD COUNT 6.6 K/UL (4.8-10.8)
[2017-11-21 23:48] LABS: ANION GAP 6 mmol/L (5-15); BLOOD UREA NITROGEN 17 mg/dL (7-18); CALCIUM 9.5 MG/DL (8.5-10.1); CARBON DIOXIDE 31 MMOL/L (21-32); CHLORIDE 98 MMOL/L (98-107); POTASSIUM 4.2 MMOL/L (3.5-5.1); SODIUM 135 MMOL/L (136-145)
[2017-11-21 23:56] LABS: ALANINE AMINOTRANSFERASE 44 U/L (12-78); ALBUMIN 3.6 G/DL (3.4-5.0); ALBUMIN/GLOBULIN RATIO 0.8 (1.0-2.7); ALKALINE PHOSPHATASE 70 U/L (46-116); ASPARTATE AMINO TRANSFERASE 22 U/L (15-37); BILIRUBIN,TOTAL 0.5 MG/DL (0.2-1.0)
[2017-11-21 23:59] LABS: HEMOGLOBIN 18.6 G/DL (14.2-18.0)
[2017-11-22 00:13] LABS: APPEARANCE,URINE CLEAR; BILIRUBIN, URINE NEGATIVE (NEGATIVE); GLUCOSE, URINE (UA) NEGATIVE (NEGATIVE); KETONES,URINE NEGATIVE (NEGATIVE); LEUKOCYTE ESTERASE ,URINE 1+ (NEGATIVE); NITRITE,URINE NEGATIVE (NEGATIVE); PH,URINE 5 (4.5-8.0); PROTEIN,URINE NEGATIVE (NEGATIVE); UROBILINOGEN,URINE NORMAL MG/DL (0.0-1.0)
[2017-11-22 00:27] LABS: COLOR,URINE YELLOW
[2017-11-22] MEDS ORDERED: BENTYL10 MG ORAL (02:04)
[2017-11-22 02:06] VITALS: BP 142/94
--- NOTE | 2017-11-22 09:33 | Diagnostic Imaging Report ---
Indication: Abdominal pain Technique: Continuous helical transaxial imaging of the abdomen and pelvis was obtained from the lung bases to the pubic symphysis during intravenous contrast administration. Coronal 2-D reformats were also obtained. Study obtained in a Siemens sensation [address] Automatic Exposure Control was utilized. Total Dose length Product (DLP): 585.[address] Dose Index Volume (CTDIvol): 11.15 mGy Comparison: 10/21/2016 Findings: There is mild peripancreatic soft tissue stranding suspected just above the pancreas suspicious for pancreatitis. Please correlate clinically. There is scarring in the left kidney with area of focal atrophy. This is in the upper pole. There is a small cyst in the left kidney noted. There is a moderate amount of stool in the colon. Tiny gallstone is present. Linear densities at the lung bases likely atelectasis or scarring. No abnormalities of the adrenal glands or spleen are identified. There is no ascites. Diverticula noted in the colon. No definite evidence of acute diverticulitis. Appendix is not seen. IMPRESSION: Query acute pancreatitis. Gallstone Moderate stool Diverticulosis of the colon Basilar scarring versus atelectasis Left renal scarring. Small cyst. Atherosclerotic disease [facility] has communicated the preliminary results to the Emergency Department. Their findings are largely concordant with this report. The CT scanner at [facility] is accredited by the [employer] and the scans are performed using dose optimization techniques as appropriate to a performed exam including Automatic Exposure control.
[2017-11-23] MEDS ORDERED: TRAMADOL HCL50 MG ORAL (00:27)
== END 2017-11-22 02:15 | disposition home or self-care (01) ==
LOC: EMR 22:53
DX: M54.5 Low back pain (principal); E11.9 Type 2 diabetes mellitus without complications; K57.30 Diverticulosis of large intestine without perforation or abscess without bleeding; N28.1 Cyst of kidney, acquired; K80.20 Calculus of gallbladder without cholecystitis without obstruction
CPT/HCPCS: 36415; 74177; 80053; 80307; 80329; 81003; 83690; 85025; 96361; 96374; 96375; 99284; J2270; J2405; Q9967

== ENCOUNTER 2017-11-22 22:03 | Emergency (ER) | payer MEDICAID ==
[~2017-11-22] VITALS: Ht 175.3 cm; Wt 78.0 kg
[~2017-11-22 22:03] MED LIST changes: +BENTYL10 MG ORAL
[2017-11-22 22:38] VITALS: BP 132/96
[2017-11-22] MEDS ORDERED: Ketorolac 30mg Inj IV ONE (23:30)
[2017-11-22] MEDS ORDERED: LR 1000ml 1,000 ML IV SCH (23:30)
[2017-11-22 23:51] LABS: APPEARANCE,URINE CLEAR; BILIRUBIN, URINE NEGATIVE (NEGATIVE); EOSINOPHILS % (AUTO) 0.5 % (0.0-3.0); GLUCOSE, URINE (UA) 1+ (NEGATIVE); HEMATOCRIT 57.6 % (42.0-52.0); KETONES,URINE NEGATIVE (NEGATIVE); LEUKOCYTE ESTERASE ,URINE 1+ (NEGATIVE); LYMPHOCYTES % (AUTO) 36.8 % (20.0-45.0); MEAN CORPUSCULAR VOLUME 94 FL (80-99); MONOCYTES % (AUTO) 7.3 % (1.0-10.0); NEUTROPHILS % (AUTO) 54.5 % (45.0-75.0); NITRITE,URINE NEGATIVE (NEGATIVE); PH,URINE 5 (4.5-8.0); PLATELET COUNT 210 K/UL (150-450); PROTEIN,URINE 1+ (NEGATIVE); RED BLOOD COUNT 6.12 M/UL (4.70-6.10); RED CELL DISTRIBUTION WIDTH 11.2 % (11.6-14.8); UROBILINOGEN,URINE 1 MG/DL (0.0-1.0); WHITE BLOOD COUNT 5.9 K/UL (4.8-10.8)
[2017-11-22 23:59] LABS: COLOR,URINE YELLOW; HEMOGLOBIN 20.3 G/DL (14.2-18.0)
[2017-11-23 00:01] LABS: ANION GAP 5 mmol/L (5-15); BLOOD UREA NITROGEN 11 mg/dL (7-18); CALCIUM 10.2 MG/DL (8.5-10.1); CARBON DIOXIDE 33 MMOL/L (21-32); CHLORIDE 97 MMOL/L (98-107); CREATININE 1.1 MG/DL (0.55-1.30); POTASSIUM 4.4 MMOL/L (3.5-5.1); SODIUM 135 MMOL/L (136-145)
[2017-11-23 00:06] LABS: ALANINE AMINOTRANSFERASE 44 U/L (12-78); ALBUMIN 4.1 G/DL (3.4-5.0); ALBUMIN/GLOBULIN RATIO 0.8 (1.0-2.7); ALKALINE PHOSPHATASE 79 U/L (46-116); ASPARTATE AMINO TRANSFERASE 22 U/L (15-37); BILIRUBIN,TOTAL 0.7 MG/DL (0.2-1.0)
--- NOTE | 2017-11-23 00:11 | Emergency Room Report ---
History of Present Illness General Chief Complaint: Abdominal Pain Source: Patient, Medical Record Present Illness HPI This is a 62-year-old male with a history of diabetes and HIV. Also history of appendicitis requiring surgery done last year. He presents with chief complaint abdominal pain. Onset for last week. Nausea but no vomiting. No diarrhea. Pain is diffuse in nature. In nature. Pain is 7/10. He was here last night and labs are unremarkable. His CT scan show a tiny gallstone. Also with mild. Pancreatic soft tissue stranding just above the pancreas. His lipase were normal. Patient was discharged home. He came back because his pain did not resolve with Bentyl. He denies any new complaint. Denies any alcohol or drug use. Allergies: Coded Allergies: No Known Allergies (Unverified , 02/15/13) Patient History Past Medical History: see triage record, old chart reviewed, DM, HIV Past Surgical History: appy, other Pertinent Family History: none Social History: Denies: smoking Immunizations: other Reviewed Nursing Documentation: PMH: Agreed, PSxH: Agreed Nursing Documentation-PMH Hx Cardiac Problems: Yes - HIV +, Hep C Hx Diabetes: Yes Hx Cancer: No Hx Gastrointestinal Problems: No Hx Neurological Problems: No Hx Weakness: Yes Hx Fatigue: Yes Review of Systems Eye: Denies: eye pain, blurred vision ENT: Denies: ear pain, nose congestion, throat swelling Respiratory: Denies: cough, shortness of breath Cardiovascular: Denies: chest pain, palpitations Gastrointestinal: Reports: abdominal pain, Denies: diarrhea, nausea, vomiting Musculoskeletal: Denies: back pain, joint pain Skin: Denies: rash Neurological: Denies: headache, numbness Endocrine: Denies: increased thirst, increased urine Hematologic/Lymphatic: Denies: easy bruising All Other Systems: negative except mentioned in HPI Physical Exam Vital Signs Date Time Temp Pulse Resp B/P (MAP) Pulse Ox O2 Delivery O2 Flow Rate FiO2 11/22/17 22:30 97.7 96 18 132/96 97 Room Air 97.7 vitals normal Sp02 EP Interpretation: reviewed, normal General Appearance: well appearing, no apparent distress, alert, other - He walked in without any Difficulty Head: normocephalic, atraumatic Eyes: bilateral eye PERRL, bilateral eye EOMI ENT: hearing grossly normal, normal pharynx Neck: full range of motion, supple, no meningismus Respiratory: chest non-tender, lungs clear, normal breath sounds Cardiovascular #1: regular rate, rhythm, no murmur Gastrointestinal: normal bowel sounds, no mass, no organomegaly, no bruit, non- distended, tenderness - Mild, diffuse. Musculoskeletal: back normal, gait/station normal, normal range of motion Psychiatric: mood/affect normal Skin: warm/dry Medical Decision Making Diagnostic Impression: Primary Impression: Abdominal pain of unknown etiology ER Course Patient presents with abdominal pain without clear etiology. He does have a small gallstone but no evidence of obstruction or cholecystitis. There was questionable soft tissue inflammation above the pancreas on CT yesterday. Lipase were normal. He does not have pain localized to the left upper quadrant. Is no evidence of obstruction. He does have constipation on the CT scan. Patient felt better now. Asking for food. He actually has upcoming endoscopy and colonoscopy scheduled with GI already. Lab Results Impression labs with elevated glucose and hemoglobin Last Vital Signs Date Time Temp Pulse Resp B/P (MAP) Pulse Ox O2 Delivery O2 Flow Rate FiO2 11/22/17 23:35 97.7 11/22/17 22:38 98 18 132/96 97 Room Air Status: improved Disposition: HOME, SELF-CARE Condition: Stable Scripts Tramadol Hcl* (ULTRAM*) 50 Mg Tablet 50 MG ORAL BID Y for For Pain, #20 TAB 0 Refills Prov: ARNULFO HUNTER M.D. 11/23/17 Referrals: [facility],REFERRING (PCP) Patient Instructions: Abdominal Pain, Adult Additional Instructions: Followup with your Dr. in 2-3 days. Keep your appointment for endoscopy and colonoscopy. Return if worse. ARNULFO HUNTER M.D. Nov 23, 2017 00:11
[2017-11-23] MEDS ORDERED: TRAMADOL HCL50 MG ORAL (00:27)
[2017-11-23 00:38] VITALS: BP 121/81
[2017-11-23 00:54] VITALS: BP 118/81
== END 2017-11-23 00:50 | disposition home or self-care (01) ==
LOC: EMR 22:52
DX: R10.9 Unspecified abdominal pain (principal); E11.9 Type 2 diabetes mellitus without complications; B19.20 Unspecified viral hepatitis C without hepatic coma
CPT/HCPCS: 36415; 80053; 81003; 83690; 85025; 96361; 96374; 99284; J1885; J7120

== ENCOUNTER 2017-12-03 00:06 | Emergency (ER) | payer MEDICAID ==
[~2017-12-03] VITALS: Ht 175.3 cm; Wt 81.6 kg
[2017-12-03 00:43] VITALS: BP 125/76
--- NOTE | 2017-12-03 00:54 | Emergency Room Report ---
History of Present Illness General Chief Complaint: Abnormal Labs Source: Patient Present Illness HPI This is a 62-year-old male with a history of diabetes. Today his Dr. switch him from metformin to get Januvia. He presents with chief complaint of high blood sugar at home. He said his blood sugar been running in the 200. He was concerned as when he came in. Denies any other symptoms. He has chronic abdominal crampy pain that been work up here and were unremarkable. He was told to followup with referral for colonoscopy and endoscopy. He said he has it scheduled already. Allergies: Coded Allergies: No Known Allergies (Unverified , 02/15/13) Patient History Past Medical History: see triage record, old chart reviewed, DM Past Surgical History: none Pertinent Family History: none Social History: Denies: smoking Immunizations: other Reviewed Nursing Documentation: PMH: Agreed, PSxH: Agreed Nursing Documentation-PMH Hx Cardiac Problems: Yes - HIV +, Hep C Hx Diabetes: Yes Hx Cancer: No Hx Gastrointestinal Problems: No Hx Neurological Problems: No Hx Weakness: Yes Hx Fatigue: Yes Review of Systems Eye: Denies: eye pain, blurred vision ENT: Denies: ear pain, nose congestion, throat swelling Respiratory: Denies: cough, shortness of breath Cardiovascular: Denies: chest pain, palpitations Gastrointestinal: Reports: abdominal pain, Denies: diarrhea, nausea, vomiting Musculoskeletal: Denies: back pain, joint pain Skin: Denies: rash Neurological: Denies: headache, numbness Endocrine: Denies: increased thirst, increased urine Hematologic/Lymphatic: Denies: easy bruising All Other Systems: negative except mentioned in HPI Physical Exam Vital Signs Date Time Temp Pulse Resp B/P (MAP) Pulse Ox O2 Delivery O2 Flow Rate FiO2 12/03/17 00:19 98.4 109 18 125/76 99 Room Air 98.4 vitals normal Sp02 EP Interpretation: reviewed, normal General Appearance: well appearing, no apparent distress, alert Head: normocephalic, atraumatic Eyes: bilateral eye PERRL, bilateral eye EOMI ENT: hearing grossly normal, normal pharynx Neck: full range of motion, supple, no meningismus Respiratory: chest non-tender, lungs clear, normal breath sounds Cardiovascular #1: regular rate, rhythm, no murmur Gastrointestinal: normal bowel sounds, non tender, no mass, no organomegaly, no bruit, non-distended Musculoskeletal: back normal, gait/station normal, normal range of motion Psychiatric: depressed affect Skin: warm/dry Medical Decision Making Diagnostic Impression: Primary Impression: Hyperglycemia due to type 2 diabetes mellitus Qualified Codes: E11.65 - Type 2 diabetes mellitus with hyperglycemia ER Course Patient with hyperglycemia. Blood sugars to 40. Because of his concern, given a small dose of insulin. Explained to patient that he has to wait to see the medication work. He is not in DKA or any distress. We'll discharge home. Abdominal exam is unremarkable. No acute abdomen. Last Vital Signs Date Time Temp Pulse Resp B/P (MAP) Pulse Ox O2 Delivery O2 Flow Rate FiO2 12/03/17 00:43 98.4 18 125/76 99 Room Air 98.4 12/03/17 00:19 109 Status: improved Disposition: HOME, SELF-CARE Condition: Stable Referrals: [facility],REFERRING (PCP) Additional Instructions: Followup with your Dr. in 7 days. You have to give your medication a chance to work first. Return if symptom worsen. ARNULFO HUNTER M.D. Dec 03, 2017 00:53
[2017-12-03 01:14] VITALS: BP 125/76
== END 2017-12-03 01:14 | disposition home or self-care (01) ==
LOC: EMR 00:29
DX: E11.65 Type 2 diabetes mellitus with hyperglycemia (principal); Z79.84 Long term (current) use of oral hypoglycemic drugs; B20 Human immunodeficiency virus [HIV] disease; B19.20 Unspecified viral hepatitis C without hepatic coma
CPT/HCPCS: 96372; 99283; J1815

== ENCOUNTER 2018-10-26 15:08 | Emergency (ER) | payer MEDICAID ==
[~2018-10-26] VITALS: Ht 175.3 cm; Wt 88.0 kg
[2018-10-26 15:17] VITALS: BP 127/84
[2018-10-26 16:26] LABS: APPEARANCE,URINE CLOUDY; BASOPHILS % (AUTO) 1.9 % (0.0-2.0); BILIRUBIN, URINE NEGATIVE (NEGATIVE); COLOR,URINE YELLOW; EOSINOPHILS % (AUTO) 2.4 % (0.0-3.0); GLUCOSE, URINE (UA) 2+ (NEGATIVE); HEMATOCRIT 50.7 % (42.0-52.0); HEMOGLOBIN 17.7 G/DL (14.2-18.0); KETONES,URINE NEGATIVE (NEGATIVE); LEUKOCYTE ESTERASE ,URINE 3+ (NEGATIVE); LYMPHOCYTES % (AUTO) 48.8 % (20.0-45.0); MEAN CORPUSCULAR VOLUME 95 FL (80-99); MONOCYTES % (AUTO) 7.3 % (1.0-10.0); NEUTROPHILS % (AUTO) 39.7 % (45.0-75.0); NITRITE,URINE NEGATIVE (NEGATIVE); PH,URINE 6 (4.5-8.0); PLATELET COUNT 172 K/UL (150-450); PROTEIN,URINE NEGATIVE (NEGATIVE); RED BLOOD COUNT 5.35 M/UL (4.70-6.10); RED CELL DISTRIBUTION WIDTH 11.4 % (11.6-14.8); UROBILINOGEN,URINE NORMAL MG/DL (0.0-1.0); WHITE BLOOD COUNT 6.2 K/UL (4.8-10.8)
--- NOTE | 2018-10-26 16:29 | Diagnostic Imaging Report ---
Indication: Dyspnea Comparison: 10/20/2016 A single view chest radiograph was obtained. Findings: Cardiomediastinal appearance is within normal limits for age. The lungs are clear. Pulmonary vascularity is appropriate. The diaphragmatic contour is smooth and costophrenic angles are sharp. No pleural effusions are identified. The bones are unremarkable. Impression: No acute findings
[2018-10-26 16:45] LABS: ANION GAP 5 mmol/L (5-15); BLOOD UREA NITROGEN 15 mg/dL (7-18); CALCIUM 9.9 MG/DL (8.5-10.1); CARBON DIOXIDE 31 MMOL/L (21-32); CHLORIDE 102 MMOL/L (98-107); CREATININE 1.1 MG/DL (0.55-1.30); POTASSIUM 4.3 MMOL/L (3.5-5.1); SODIUM 138 MMOL/L (136-145)
[2018-10-26 16:55] LABS: ALANINE AMINOTRANSFERASE 93 U/L (12-78); ALBUMIN 3.6 G/DL (3.4-5.0); ALBUMIN/GLOBULIN RATIO 0.8 (1.0-2.7); ALKALINE PHOSPHATASE 77 U/L (46-116); ASPARTATE AMINO TRANSFERASE 48 U/L (15-37); BILIRUBIN,TOTAL 0.4 MG/DL (0.2-1.0); CREATINE KINASE 135 U/L (26-308)
[2018-10-26] MEDS ORDERED: cefTRIAXone 1 GM in NS 55 ML IVPB ONE (18:15)
--- NOTE | 2018-10-26 18:30 | NUR ---
ED Nurse Note: confirmed with Dr Geller that pt is ok to eat regular food. [place] and juice were provided as pt requested.
--- NOTE | 2018-10-26 18:40 | NUR ---
ED Nurse Note: Pt ambulated to the bathroom and came back in stable condition.
--- NOTE | 2018-10-26 18:46 | NUR ---
ED Nurse Note: Pt. AAOx4. ambulatory. pt. i came in to ER due to blood sugar being elevated since tuesday. reports having cough x 1 month. denies other c/o. Pt. skin is intact. Pt. is very cooperative
--- NOTE | 2018-10-26 18:48 | NUR ---
ED Nurse Note: pt. is given a sandwich
--- NOTE | 2018-10-26 19:14 | Emergency Room Report ---
History of Present Illness General Chief Complaint: Abnormal Labs Source: Patient Present Illness HPI Patient presents with elevated blood sugar. He is on 2 oral medications. He states he has not been adhering to his diet. He doubled up on his dose of Januvia today. He has had polyuria and polydipsia. Denies any fevers, chills, nausea, vomiting, diarrhea, dysuria, joint pain, chest pain, dyspnea or rashes. He states he is gained a few pounds recently. The patient is HIV positive and stable on his antivirals. Allergies: Coded Allergies: No Known Allergies (Unverified , 02/15/13) Patient History Past Medical History: see triage record Social History: Reports: smoking Social History Narrative From home Reviewed Nursing Documentation: PMH: Agreed; PSxH: Agreed Nursing Documentation-PMH Past Medical History: No History, Except For Hx Cardiac Problems: Yes - HIV +, Hep C Hx Diabetes: Yes Hx Cancer: No Hx Gastrointestinal Problems: No Hx Neurological Problems: No Hx Weakness: Yes Hx Fatigue: Yes Review of Systems All Other Systems: negative except mentioned in HPI Physical Exam Vital Signs Date Time Temp Pulse Resp B/P (MAP) Pulse Ox O2 Delivery O2 Flow Rate FiO2 10/26/18 15:17 98.4 86 18 127/84 98 Room Air Sp02 EP Interpretation: reviewed, normal General Appearance: well appearing, no apparent distress, GCS 15 Head: normocephalic Eyes: bilateral eye normal inspection, bilateral eye PERRL ENT: moist mucus membranes Neck: supple Respiratory: lungs clear, normal breath sounds Cardiovascular #1: regular rate, rhythm Cardiovascular #2: 2+ radial (R) Gastrointestinal: normal inspection, normal bowel sounds, non tender, no mass, non-distended, overweight Musculoskeletal: back normal, gait/station normal, normal range of motion Neurologic: alert, oriented x3, grossly normal Psychiatric: mood/affect normal Skin: normal inspection, warm/dry Medical Decision Making Diagnostic Impression: Primary Impression: Hyperglycemia Additional Impression: Acute UTI ER Course Patient presents with elevated blood sugar. Differential includes hyperglycemia , diabetic ketoacidosis, occult infection, myocardial ischemia, renal dysfunction amongst others. Evaluation will be with EKG, chest x-ray and labs. Depending on results he may need to be treated here. EKG without injury. Chest x-ray no heart failure or infiltrates. Labs with glucose of 228. CBC coags and troponin negative. Urinalysis with pyuria. Rocephin given. The patient was requesting a shot of insulin. I explained to the patient that we most likely could control his diabetes by increasing his oral medication and treating the infection. Patient stable for outpatient observation and treatment. Laboratory Tests Test 10/26/18 16:10 White Blood Count 6.2 K/UL (4.8-10.8) Red Blood Count 5.35 M/UL (4.70-6.10) Hemoglobin 17.7 G/DL (14.2-18.0) Hematocrit 50.7 % (42.0-52.0) Mean Corpuscular Volume 95 FL (80-99) Mean Corpuscular Hemoglobin 33.1 PG (27.0-31.0) H Mean Corpuscular Hemoglobin Concent 35.0 G/DL (32.0-36.0) Red Cell Distribution Width 11.4 % (11.6-14.8) L Platelet Count 172 K/UL (150-450) Mean Platelet Volume 7.8 FL (6.5-10.1) Neutrophils (%) (Auto) 39.7 % (45.0-75.0) L Lymphocytes (%) (Auto) 48.8 % (20.0-45.0) H Monocytes (%) (Auto) 7.3 % (1.0-10.0) Eosinophils (%) (Auto) 2.4 % (0.0-3.0) Basophils (%) (Auto) 1.9 % (0.0-2.0) Prothrombin Time 10.7 SEC (9.30-11.50) Prothrombin Time INR 1.0 (0.9-1.1) PTT 31 SEC (23-33) Urine Color Yellow Urine Appearance Cloudy Urine pH 6 (4.5-8.0) Urine Specific [place] 1.015 (1.005-1.035) Urine Protein Negative (NEGATIVE) Urine Glucose (UA) 2+ (NEGATIVE) H Urine Ketones Negative (NEGATIVE) Urine Blood 1+ (NEGATIVE) H Urine Nitrite Negative (NEGATIVE) Urine Bilirubin Negative (NEGATIVE) Urine Urobilinogen Normal MG/DL (0.0-1.0) Urine Leukocyte Esterase 3+ (NEGATIVE) H Urine RBC 0-2 /HPF (0 - 0) H Urine WBC Tntc /HPF (0 - 0) H Urine Squamous Epithelial Cells None /LPF (NONE/OCC) Urine Bacteria Few /HPF (NONE) Sodium Level 138 MMOL/L (136-145) Potassium Level 4.3 MMOL/L (3.5-5.1) Chloride Level 102 MMOL/L (98-107) Carbon Dioxide Level 31 MMOL/L (21-32) Anion Gap 5 mmol/L (5-15) Blood Urea Nitrogen 15 mg/dL (7-18) Creatinine 1.1 MG/DL (0.55-1.30) Estimate Glomerular Filtration Rate > 60 mL/min (>60) Glucose Level 228 MG/DL (74-106) H Calcium Level 9.9 MG/DL (8.5-10.1) Total Bilirubin 0.4 MG/DL (0.2-1.0) Aspartate Amino Transferase (AST) 48 U/L (15-37) H Alanine Aminotransferase (ALT) 93 U/L (12-78) H Alkaline Phosphatase 77 U/L (46-116) Total Creatine Kinase 135 U/L (26-308) Troponin I 0.003 ng/mL (0.000-0.056) Pro-B-Type Natriuretic Peptide 30 pg/mL (0-125) Total Protein 7.9 G/DL (6.4-8.2) Albumin 3.6 G/DL (3.4-5.0) Globulin 4.3 g/dL Albumin/Globulin Ratio 0.8 (1.0-2.7) L Urine Opiates Screen Negative (NEGATIVE) Urine Barbiturates Screen Negative (NEGATIVE) Phencyclidine (PCP) Screen Negative (NEGATIVE) Urine Amphetamines Screen Negative (NEGATIVE) Urine Benzodiazepines Screen Negative (NEGATIVE) Urine Cocaine Screen Negative (NEGATIVE) Urine Marijuana (THC) Screen Negative (NEGATIVE) EKG Diagnostic Results Rate: normal Rhythm: NSR ST Segments: no acute changes - lvh Rhythm Strip Diag. Results EP Interpretation: yes Rhythm: NSR, no PVC's, no ectopy Chest X-Ray Diagnostic Results Chest X-Ray Diagnostic Results : Chest X-Ray Ordered: Yes # of Views/Limited/Complete: 1 View Indication: Other EP Interpretation: Yes Interpretation: no consolidation, no effusion, no pneumothorax Impression: No acute disease Last Vital Signs Date Time Temp Pulse Resp B/P (MAP) Pulse Ox O2 Delivery O2 Flow Rate FiO2 10/26/18 19:43 98.4 84 18 125/83 98 Room Air Status: improved Disposition: HOME, SELF-CARE Condition: Improved Scripts Nitrofurantoin Monohyd/M-Cryst* (MACROBID 100 MG*) 100 Mg Capsule 100 MG ORAL EVERY 12 HOURS, #14 CAP Prov: Poncho Geller MD 10/26/18 Referrals: NON PHYSICIAN (PCP) Poncho Geller MD Oct 26, 2018 19:14
[2018-10-26] MEDS ORDERED: NITROFURANTOIN100 M2 ORAL (19:16)
--- NOTE | 2018-10-26 19:21 | NUR ---
HAND-OFF: Report given to Derick. Pt is stable in bed.
[2018-10-26 19:24] VITALS: BP 125/83
[2018-10-26 19:43] VITALS: BP 125/83
--- NOTE | 2018-10-26 19:48 | NUR ---
ED Nurse Note: PT is Dc per ERMD orders PT vital signs, status and condition reported to ERMD prior to Dc. pt is stable for Dc. pt is alert and orientated times 4. no skin trauma noted in ER. pt has left with all belongings as well as DC notes and presacriptions. pt is able to understand all DC info and teach back info. pt is instructed to follow up with main provider as soon as possible as well as report back to ER as soon as possible for reoccurance of symptoms. pt is able to ambulate with steady gait. IV and ID band removed.
--- NOTE | 2018-10-27 15:57 | Cardiology Report ---
APPROVED REPORT EKG Measurement Heart [id number] Normal sinus rhythm Left axis deviation Left ventricular hypertrophy with QRS widening Cannot rule out Septal infarct, age undetermined Abnormal ECG
== END 2018-10-26 19:49 | disposition home or self-care (01) ==
LOC: EMR 15:34
DX: R73.9 Hyperglycemia, unspecified (principal); N39.0 Urinary tract infection, site not specified; E11.9 Type 2 diabetes mellitus without complications
CPT/HCPCS: 36415; 71045; 80053; 80307; 81003; 82550; 82962; 83880; 84484; 85025; 85610; 85730; 87086; 93005; 96361; 96365; 99284; J0696

== ENCOUNTER 2020-11-18 09:34 | Emergency (ER) | payer MEDICAID ==
[~2020-11-18] VITALS: Ht 152.4 cm; Wt 87.5 kg
[~2020-11-18 09:34] MED LIST changes: +NITROFURANTOIN100 M2 ORAL
[2020-11-18] MEDS ORDERED: Acetaminophen 500mg (ES) tab ORAL ONE (10:15)
[2020-11-18] MEDS ORDERED: Phenazopyridine 200mg tab ORAL ONE (10:15)
--- NOTE | 2020-11-18 10:16 | Emergency Room Report ---
History of Present Illness General Chief Complaint: Male Urogenital Problems Source: Patient Present Illness HPI Patient presents with dysuria hematuria. He denies fever but was documented fever by triage. The patient has had urinary tract infections before and it feels like this to him. He denies it being the possibility of sexually transmitted disease. He rates the pain 8/10 states this is mainly when he is urinating. He denies any incontinence. There is no hesitancy. He is not passing any clots. Patient denies exposure to Covid positive contacts. He says his CD4 counts are good and his viral load is negligible. The patient is diabetic. He states his sugars have been variable. He denies polyuria polydipsia. No fevers, chills, sore throat, chest pain, palpitations, nausea, vomiting, diarrhea, abdominal pain, shortness of breath, joint pain, rashes, depression, anxiety, visual changes, dizziness, headache. 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: No Patient History Past Medical History: see triage record, DM, HIV Social History: Reports: smoking Social History Narrative From home Reviewed Nursing Documentation: PMH: Agreed; PSxH: Agreed Nursing Documentation-PMH Hx Cardiac Problems: Yes - HIV +, Hx Diabetes: Yes Hx Cancer: No Hx Gastrointestinal Problems: No Hx Neurological Problems: No Hx Weakness: Yes Hx Fatigue: Yes Review of Systems All Other Systems: negative except mentioned in HPI Physical Exam Vital Signs Date Time Temp Pulse Resp B/P (MAP) Pulse Ox O2 Delivery O2 Flow Rate FiO2 11/18/20 09:49 100.2 117 20 126/85 (99) 94 Room Air Sp02 EP Interpretation: reviewed, abnormal - Interpreted as slightly low by me General Appearance: well appearing, no apparent distress, GCS 15 Head: normocephalic Eyes: bilateral eye normal inspection, bilateral eye PERRL, bilateral eye EOMI ENT: moist mucus membranes Neck: full range of motion, supple Respiratory: lungs clear, normal breath sounds Cardiovascular #1: regular rate, rhythm Cardiovascular #2: 2+ radial (R) Gastrointestinal: normal inspection, normal bowel sounds, soft Genitourinary: no vertebral tenderness Musculoskeletal: gait/station normal Neurologic: alert, grossly normal Psychiatric: mood/affect normal Skin: normal color, warm/dry, other - Fully dressed Medical Decision Making Diagnostic Impression: Primary Impression: UTI (urinary tract infection) Qualified Codes: N30.01 - Acute cystitis with hematuria Additional Impression: Hyperglycemia ER Course Patient presents with hematuria dysuria and fever with history of HIV. Differential includes UTI, STD, pyelonephritis amongst others. Clinically the patient does not have pyelonephritis at this time. Urinalysis will be checked. In addition the patient was given Tylenol and Pyridium initially. Most likely will be starting him on antibiotics as urine comes back. Pyuria and hematuria nitrite + Keflex given. Accucheck 320. Metformin given. Patient dysuria is resolved. No signs of systemic infection. Discussed findings with patient and treatment plan. Patient stable for outpatient observation and treatment. Laboratory Tests Test 11/18/20 10:14 Urine Color Brown Urine Appearance Cloudy Urine pH 5 (4.5-8.0) Urine Specific [place] 1.020 (1.005-1.035) Urine Protein 3+ (NEGATIVE) H Urine Glucose (UA) 4+ (NEGATIVE) H Urine Ketones 2+ (NEGATIVE) H Urine Blood 5+ (NEGATIVE) H Urine Nitrite Positive (NEGATIVE) H Urine Bilirubin Negative (NEGATIVE) Urine Urobilinogen 4 MG/DL (0.0-1.0) H Urine Leukocyte Esterase 3+ (NEGATIVE) H Urine RBC 30-40 /HPF (0 - 0) H Urine WBC 40-60 /HPF (0 - 0) H Urine Squamous Epithelial Cells Occasional /LPF Urine Bacteria Few /HPF (NONE) Last Vital Signs Date Time Temp Pulse Resp B/P (MAP) Pulse Ox O2 Delivery O2 Flow Rate FiO2 11/18/20 12:00 99.4 105 16 124/83 96 Room Air Status: improved Disposition: HOME, SELF-CARE Condition: Improved Scripts Acetaminophen (Tylenol) 325 Mg Tablet 650 MG ORAL Q6H PRN for Prn Pain/Headache/Temp > 101, #20 TAB 0 Refills Prov: Poncho Geller MD 11/18/20 Phenazopyridine Hcl* (PYRIDIUM*) 200 Mg Tablet 200 MG ORAL THREE TIMES A DAY, #9 TAB 0 Refills Prov: Poncho Geller MD 11/18/20 Cephalexin* (KEFLEX*) 500 Mg Capsule 500 MG ORAL EVERY 6 HOURS, #28 CAP Prov: Poncho Geller MD 11/18/20 Poncho Geller MD Nov 18, 2020 10:16
[2020-11-18 10:24] LABS: APPEARANCE,URINE CLOUDY; BILIRUBIN, URINE NEGATIVE (NEGATIVE); COLOR,URINE BROWN; GLUCOSE, URINE (UA) 4+ (NEGATIVE); KETONES,URINE 2+ (NEGATIVE); LEUKOCYTE ESTERASE ,URINE 3+ (NEGATIVE); NITRITE,URINE POSITIVE (NEGATIVE); PH,URINE 5 (4.5-8.0); PROTEIN,URINE 3+ (NEGATIVE); UROBILINOGEN,URINE 4 MG/DL (0.0-1.0)
--- NOTE | 2020-11-18 10:41 | NUR ---
Reported to the ER for blood in urine x 3-4 days. Stable. Calm. Cooperative. Independent with ambulation. Continent with B/B. Awaiting urine results.
[2020-11-18] MEDS ORDERED: CEPHALEXIN500 MG ORAL (11:25)
[2020-11-18] MEDS ORDERED: TYLENOL325 MG ORAL (11:25)
[2020-11-18] MEDS ORDERED: PHENAZOPYRIDIN200 MG ORAL (11:25)
[2020-11-18] MEDS ORDERED: Cephalexin 500mg cap ORAL ONE (11:30)
[2020-11-18] MEDS ORDERED: metFORMIN 500mg tab ORAL STA (11:43)
[2020-11-18 12:00] VITALS: BP 124/83
--- NOTE | 2020-11-18 12:00 | NUR ---
ED Nurse Note:accucheck 320, metformin given pe rER MD order Pt cleared by health care Provider for discharge. DC instructions/prescription was given and explained to pt and verbalized understanding of teachings. All medical deviecs such as ID band removed. Pt is AAO x4, ambulatory and left with all personal belongings.
== END 2020-11-18 12:08 | disposition home or self-care (01) ==
LOC: EMR 10:17
DX: N30.01 Acute cystitis with hematuria (principal); E11.65 Type 2 diabetes mellitus with hyperglycemia; B20 Human immunodeficiency virus [HIV] disease
CPT/HCPCS: 81003; 87086; 87181; Z7502; 99283

== ENCOUNTER 2020-11-29 09:39 | Emergency (ER) | payer MEDICAID ==
[~2020-11-29] VITALS: Ht 175.3 cm; Wt 86.6 kg
[~2020-11-29 09:39] MED LIST changes: +PHENAZOPYRIDIN200 MG ORAL
[2020-11-29 09:55] VITALS: BP 121/78
--- NOTE | 2020-11-29 09:56 | NUR ---
ED Nurse Note:pt. came with c/o possible UTI and penial itching
--- NOTE | 2020-11-29 10:07 | Emergency Room Report ---
History of Present Illness General Chief Complaint: Male Urogenital Problems Source: Patient Present Illness HPI Disclaimer: Please note that this report is being documented using DRAGON technology. This can lead to erroneous entry secondary to incorrect interpretation by the dictating instrument. HPI: 65-year-old male presents for hematuria. He reports a red discoloration to his urine today. Denies abdominal pain, fever, chills, dysuria, pyuria, flank pain, nausea, vomiting, diarrhea, testicular pain. Denies brandon bleeding. Serg es trauma. Treated with Keflex for urinary tract infection on 11/18/20. Patient has a urologist which she was seen for erectile dysfunction but has not seen them for some time. Denies frequent urination, hesitancy, urgency. PMH: HIV, diabetes PSH: Appendectomy Allergies: Reviewed Social Hx: Reviewed Allergies: Coded Allergies: No Known Allergies (Unverified , 02/15/13) COVID-19 Screening Contact w/high risk pt: No Experienced COVID-19 symptoms?: No COVID-19 Testing performed INSPECTOR MATERIAL DISPOSITION: No Nursing Documentation-PMH Hx Cardiac Problems: Yes - HIV +, Hx Diabetes: Yes Hx Cancer: No Hx Gastrointestinal Problems: No Hx Neurological Problems: No Hx Weakness: Yes Hx Fatigue: Yes Review of Systems All Other Systems: negative except mentioned in HPI Physical Exam Vital Signs Date Time Temp Pulse Resp B/P (MAP) Pulse Ox O2 Delivery O2 Flow Rate FiO2 11/29/20 09:44 98.8 110 15 121/78 (92) 94 Room Air General: Awake and alert, no acute distress HEENT: NC/AT. EOMI. Resp: Normal work of breathing Abdomen: Soft, nontender, nondistended : Normal-appearing external genitalia. No bleeding. No signs of trauma. Testicles anatomic position. Nontender. Skin: Intact. No abrasions, laceration or rash over the exposed skin MSK: Normal tone and bulk. Moving all extremities. No obvious deformity. Neuro: Awake and alert. Mentating appropriately Medical Decision Making Diagnostic Impression: Primary Impression: UTI (urinary tract infection) Additional Impression: Hematuria ER Course 65-year-old male presenting for evaluation of painless hematuria. Recently treated for urinary tract infection. Postvoid residual showed less than 30 cc retained urine in bladder. Urinalysis shows persistent elevated inflammatory ma rkers white cells as well as RBCs blood. Patient had an ultrasound of his abdomen today ordered by his PMD. He has a urologist but is not seen them in some time. We will start the patient on Bactrim discontinue the Keflex. He will follow-up with his urologist and PMD as soon as possible. Instructed to return with new or worsening symptoms. He understands and agrees with this treatment plan. Laboratory Tests Test 11/29/20 10:00 Urine Color Brown Urine Appearance Cloudy Urine pH 5 (4.5-8.0) Urine Specific [place] 1.020 (1.005-1.035) Urine Protein 2+ (NEGATIVE) H Urine Glucose (UA) 3+ (NEGATIVE) H Urine Ketones 2+ (NEGATIVE) H Urine Blood 5+ (NEGATIVE) H Urine Nitrite Negative (NEGATIVE) Urine Bilirubin Negative (NEGATIVE) Urine Urobilinogen 4 MG/DL (0.0-1.0) H Urine Leukocyte Esterase 2+ (NEGATIVE) H Urine RBC 60-80 /HPF (0 - 0) H Urine WBC 60-80 /HPF (0 - 0) H Urine Squamous Epithelial Cells Few /LPF (NONE/OCC) Urine Bacteria Few /HPF (NONE) Last Vital Signs Date Time Temp Pulse Resp B/P (MAP) Pulse Ox O2 Delivery O2 Flow Rate FiO2 11/29/20 09:55 98.8 108 15 121/78 94 Room Air Disposition: HOME, SELF-CARE Condition: Stable Scripts Trimethoprim/Sulfamethoxazole 160/800* (BACTRIM DS TABLET*) 1 Each Tablet 1 TAB ORAL Q12H, #14 TAB 0 Refills Prov: Kayden Pink MD 11/29/20 Referrals: [facility],REFERRING (PCP) Kayden Pink MD Nov 29, 2020 10:06
[2020-11-29 10:28] LABS: APPEARANCE,URINE CLOUDY; COLOR,URINE BROWN; GLUCOSE, URINE (UA) 3+ (NEGATIVE); KETONES,URINE 2+ (NEGATIVE); PH,URINE 5 (4.5-8.0); UROBILINOGEN,URINE 4 MG/DL (0.0-1.0)
[2020-11-29 10:37] LABS: BILIRUBIN, URINE NEGATIVE (NEGATIVE); LEUKOCYTE ESTERASE ,URINE 2+ (NEGATIVE); NITRITE,URINE NEGATIVE (NEGATIVE); PROTEIN,URINE 2+ (NEGATIVE)
[2020-11-29] MEDS ORDERED: BACTRIM DS TAB1 EAC1 ORAL (10:48)
[2020-11-29 11:22] VITALS: BP 125/75
[2020-11-29 11:23] VITALS: BP 125/75
--- NOTE | 2020-11-29 11:23 | NUR ---
ED Nurse Note: Pt cleared by health care Provider for discharge. DC instructions/prescription was given and explained to pt and verbalized understanding of teachings. All medical deviecs such as ID band removed. Pt is AAO x4, ambulatory and left with all personal belongings.
== END 2020-11-29 11:24 | disposition home or self-care (01) ==
LOC: EMR 09:53
DX: N39.0 Urinary tract infection, site not specified (principal); R31.9 Hematuria, unspecified; B20 Human immunodeficiency virus [HIV] disease; E11.9 Type 2 diabetes mellitus without complications
CPT/HCPCS: 81003; 87086; Z7502; 99283